=== PATIENT | female | born 1945 | race Caucasian/White ===

== ENCOUNTER 2017-02-19 10:44 | Day surgery (SDC) | payer MEDICARE ==
[~2017-02-19] VITALS: Ht 157.5 cm; Wt 90.7 kg
[~2017-02-19 10:44] MED LIST: ALPR0.254 PO; AMLO5TAB2 PO; CITA40TA11 PO; FEXO-45 PO; HYDR-3730 PO; LEVO75TA6 PO; LISI-552 PO; SIMV40TA4 PO; SUCR1TAB PO
[2017-02-19 11:31] LABS: CLARITY,URINE SLIGHTLY CLOUDY; COLOR,URINE YELLOW; GLUCOSE, URINE (UA) NEGATIVE (NEGATIVE); KETONES,URINE 2+ (NEGATIVE); LEUKOCYTE ESTERASE ,URINE 3+ (NEGATIVE); NITRITE,URINE NEGATIVE (NEGATIVE); PH,URINE 5 (5-9); PROTEIN,URINE 2+ (NEGATIVE); UROBILINOGEN,URINE 1 MG/DL (NORMAL)
[2017-02-19 11:33] LABS: BASOPHILS % (AUTO) 0 % (0-10); EOSINOPHILS % (AUTO) 0 % (0-10); HEMATOCRIT 46 % (35-52); HEMOGLOBIN 15.5 G/DL (11.5-16.0); LYMPHOCYTES # (AUTO) 1.3 X 10^3 (1.0-4.0); LYMPHOCYTES % (AUTO) 25 % (12-44); MEAN CORPUSCULAR HEMOGLOBIN 31 PG (25-34); MEAN CORPUSCULAR HGB CONC 34 G/DL (32-36); MEAN CORPUSCULAR VOLUME 94 FL (80-99); MEAN PLATELET VOLUME 9.2 FL (7.4-10.4); MONOCYTES # (AUTO) 0.5 X 10^3 (0.0-1.0); MONOCYTES % (AUTO) 9 % (0-12); NEUTROPHILS # (AUTO) 3.5 X 10^3 (1.8-7.8); NEUTROPHILS % (AUTO) 66 % (42-75); PLATELET COUNT 263 10^3/uL (130-400); RED BLOOD COUNT 4.95 10^6/uL (4.35-5.85); RED CELL DISTRIBUTION WIDTH 13.1 % (10.0-14.5); WHITE BLOOD COUNT 5.4 10^3/uL (4.3-11.0)
[2017-02-19 11:43] LABS: BACTERIA,URINE MODERATE /HPF; BILIRUBIN,URINE 1+ (NEGATIVE); GRANULAR CASTS,URINE 0-2 /LPF; RBC,URINE RARE /HPF
--- NOTE | 2017-02-19 11:48 | ED GI ---
General Chief Complaint: Abdominal/GI Problems Stated Complaint: FEELS,N/D Nursing Triage Note: pt presents ot er with complaint of nausea, diarrhea, weakness, and clammy. states symptoms started x2 weeks. Sepsis Screen: No Definite Risk Source of Information: Patient, Family Exam Limitations: Intoxication (MITRA GREENE MD) History of Present Illness Time Seen By Provider: 11:35 Initial Comments I the patient is a 71-year-old white female who is the aunt of Dr. Puentes. She did not go to the [employer] dinner at Dr. Puentes's house because she felt ill. When Dr. Puentes inquired further she found that the patient had been having diarrhea for a month. And that she had also been losing weight. The patient states that she has lost 90+ pounds over the past 4-1/2 years by dieting. She lost about 10 pounds over the past month because she did not feel like eating. She denied blood in the stools nausea or vomiting. Timing/Duration: Other (MITRA GREENE MD) Allergies and Home Medications Allergies Coded Allergies: No Known Drug Allergies (Unverified , 02/19/17) Home Medications Alprazolam 0.25 Mg Tablet, 0.25 MG PO TID PRN for ANXIETY, (Reported) Amlodipine Besylate 5 Mg Tablet, 5 MG PO DAILY, (Reported) Citalopram Hydrobromide 40 Mg Tablet, 40 MG PO HS, (Reported) Fexofenadine HCl 60 Mg Tablet, 60 MG PO BID PRN for CONGESTION, (Reported) Levothyroxine Sodium 75 Mcg Tablet, 75 MCG PO DAILY, (Reported) Lisinopril 20 Mg Tablet, 20 MG PO DAILY, (Reported) Simvastatin 40 Mg Tablet, 40 MG PO DAILY, (Reported) Sucralfate 1 Gm Tablet, 1 GM PO QID PRN for HEARTBURN, (Reported) Review of Systems Constitutional: see HPI EENTM: No Symptoms Reported Respiratory: No Symptoms Reported Cardiovascular: No Symptoms Reported Gastrointestinal: Diarrhea, Nausea, Poor Appetite Genitourinary: No Symptoms Reported Musculoskeletal: no symptoms reported Skin: no symptoms reported Psychiatric/Neurological: No Symptoms Reported Endocrine: No Symptoms Reported Hematologic/Lymphatic: No Symptoms Reported (MITRA GREENE MD) Past Ksiroqe-Qmyxho-Wmamac Hx Patient Social History Alcohol Use: Denies Use Recreational Drug Use: No Smoking Status: Never a Smoker Recent Foreign Travel: No Contact w/Someone Who Travel: No Recent Infectious Disease Expo: No Recent Hopitalizations: No Physical Abuse: No Sexual Abuse: No (MITRA GREENE MD) Immunizations Up To Date Tetanus Booster (TDap): Less than 5yrs Date of Pneumonia Vaccine: Dec 04, 2013 Date of Influenza Vaccine: Dec 04, 2015 (MITRA GREENE MD) Seasonal Allergies Seasonal Allergies: Yes (MITRA GREENE MD) Surgeries History of Surgeries: Yes (D&C) Surgeries: Orthopedic (MITRA GREENE MD) Respiratory History of Respiratory Disorde: No Currently Using CPAP: No Currently Using BIPAP: No (MITRA GREENE MD) Cardiovascular History of Cardiac Disorders: Yes Cardiac Disorders: High Cholesterol, Hypertension (MITRA GREENE MD) Neurological History of Neurological Disord: No (MITRA GREENE MD) Reproductive System Hx Reproductive Disorders: No Sexually Transmitted Disease: No HIV/AIDS: No Female Reproductive Disorders: Denies (MITRA GREENE MD) Genitourinary History of Genitourinary Disor: No (MITRA GREENE MD) Gastrointestinal History of Gastrointestinal Di: Yes Gastrointestinal Disorders: Gastroesophageal Reflux, Hiatal Hernia (MITRA GREENE MD) Musculoskeletal History of Musculoskeletal Dis: Yes Musculoskeletal Disorders: Arthritis (MITRA GREENE MD) Endocrine History of Endocrine Disorders: Yes Endocrine Disorders: Hypothyroidsim (MITRA GREENE MD) HEENT Loss of Vision: Bilateral Hearing Impairment: Denies (MITRA GREENE MD) Cancer History of Cancer: No (MITRA GREENE MD) Psychosocial History of Psychiatric Problem: Yes Behavioral Health Disorders: Anxiety, Depression Suicide Risk Score: 0 (MITRA GREENE MD) Integumentary History of Skin or Integumenta: No (MITRA GREENE MD) Blood Transfusions History of Blood Disorders: No Adverse Reaction to a Blood Tr: No (N/A) (MITRA GREENE MD) Physical Exam Vital Signs VS - Last 72 Hours, by Label 02/19/17 11:11 Temp 97.9 Pulse 109 Resp 20 B/P (MAP) 137/70 (92) Pulse Ox 98 O2 Delivery Room Air (SPENSER ALBERT APRN) Vital Signs Capillary Refill : Less Than 3 Seconds (MITRA GREENE MD) General Appearance: WD/WN, no apparent distress HEENT: normal ENT inspection Neck: full range of motion Respiratory: chest non-tender, lungs clear, normal breath sounds, no respiratory distress, no accessory muscle use Cardiovascular: normal peripheral pulses, regular rate, rhythm, no edema, no gallop, no JVD, no murmur Gastrointestinal: non tender, soft, no organomegaly, no pulsatile mass, abnormal bowel sounds (hypoactive) Extremities: normal range of motion, non-tender, normal inspection, no pedal edema, no calf tenderness, normal capillary refill, pelvis stable Back: normal inspection Neurologic/Psychiatric: bull float finisher II-XII nml as tested, no motor/sensory deficits, alert, normal mood/affect, oriented x 3 (MITRA GREENE MD) Progress/Results/Core Measures Results/Orders Lab Results Laboratory Tests Test 02/19/17 11:07 02/19/17 11:23 Range/Units Urine Color YELLOW Urine Clarity SLIGHTLY CLOUDY Urine pH 5 5-9 Urine Specific [place] 1.025 H 1.016-1.022 Urine Protein 2+ H NEGATIVE Urine Glucose (UA) NEGATIVE NEGATIVE Urine Ketones 2+ H NEGATIVE Urine Nitrite NEGATIVE NEGATIVE Urine Bilirubin 1+ H NEGATIVE Urine Urobilinogen 1 NORMAL MG/DL Urine Leukocyte Esterase 3+ H NEGATIVE Urine RBC (Auto) 2+ H NEGATIVE Urine RBC RARE /HPF Urine WBC 10-25 H /HPF Urine Squamous Epithelial Cells 10-25 H /HPF Urine Crystals NONE /LPF Urine Bacteria MODERATE H /HPF Urine Casts PRESENT /LPF Urine Granular Casts 0-2 H /LPF Urine Mucus NEGATIVE /LPF Urine Culture Indicated YES White Blood Count 5.4 4.3-11.0 10^3/uL Red Blood Count 4.95 4.35-5.85 10^6/uL Hemoglobin 15.5 11.5-16.0 G/DL Hematocrit 46 35-52 % Mean Corpuscular Volume 94 80-99 FL Mean Corpuscular Hemoglobin 31 25-34 PG Mean Corpuscular Hemoglobin Concent 34 32-36 G/DL Red Cell Distribution Width 13.1 10.0-14.5 % Platelet Count 263 130-400 10^3/uL Mean Platelet Volume 9.2 7.4-10.4 FL Neutrophils (%) (Auto) 66 42-75 % Lymphocytes (%) (Auto) 25 12-44 % Monocytes (%) (Auto) 9 0-12 % Eosinophils (%) (Auto) 0 0-10 % Basophils (%) (Auto) 0 0-10 % Neutrophils # (Auto) 3.5 1.8-7.8 X 10^3 Lymphocytes # (Auto) 1.3 1.0-4.0 X 10^3 Monocytes # (Auto) 0.5 0.0-1.0 X 10^3 Eosinophils # (Auto) 0.0 0.0-0.3 10^3/uL Basophils # (Auto) 0.0 0.0-0.1 10^3/uL Sodium Level 138 135-145 MMOL/L Potassium Level 3.8 3.6-5.0 MMOL/L Chloride Level 102 98-107 MMOL/L Carbon Dioxide Level 24 21-32 MMOL/L Anion Gap 12 5-14 MMOL/L Blood Urea Nitrogen 9 7-18 MG/DL Creatinine 0.78 0.60-1.30 MG/DL Estimat Glomerular Filtration Rate > 60 BUN/Creatinine Ratio 12 Glucose Level 111 H 70-105 MG/DL Calcium Level 9.2 8.5-10.1 MG/DL Total Bilirubin 0.6 0.1-1.0 MG/DL Aspartate Amino Transf (AST/SGOT) 17 5-34 U/L Alanine Aminotransferase (ALT/SGPT) 17 0-55 U/L Alkaline Phosphatase 51 40-136 U/L Total Protein 6.8 6.4-8.2 GM/DL Albumin 4.0 3.2-4.5 GM/DL Lipase 13 8-78 U/L (SPENSER ALBERT APRN) My Orders Orders - SPENSER ALBERT APRN Ct Chest/Abdomen/Pelvis W (02/19/17 12:05) Ns Iv 1000 Ml (Sodium Chloride 0.9%) (02/19/17 12:15) Ceftriaxone Injection (Rocephin Injectio (02/19/17 12:15) Ondansetron Injection (Zofran Injectio (02/19/17 12:15) Iohexol Injection (Omnipaque 350 Mg/Ml 1 (02/19/17 12:30) Ns (Ivpb) (Sodium Chloride 0.9% Ivpb Bag (02/19/17 12:30) Lipase (02/19/17 13:31) (SPENSER ABLERT APRN) Medications Given in ED Current Medications Medications Dose Ordered Sig/Ron Route Start Time Stop Time Status Last Admin Dose Admin Ceftriaxone Sodium 1000 mg/ Sodium Chloride 50 ml @ 100 mls/hr ONCE ONCE IV 02/19/17 12:15 02/19/17 12:44 DC 02/19/17 12:24 100 MLS/HR Iohexol 100 ml ONCE ONCE IV 02/19/17 12:30 02/19/17 12:31 DC 02/19/17 13:02 100 ML Ondansetron HCl 4 mg ONCE ONCE IVP 02/19/17 12:15 02/19/17 12:17 DC 02/19/17 12:25 4 MG Sodium Chloride 100 ml ONCE ONCE IV 02/19/17 12:30 02/19/17 12:31 DC 02/19/17 13:02 80 ML (SPENSER ALBERT APRN) Vital Signs/I&O Vital Sign - Last 12Hours 02/19/17 11:11 Temp 97.9 Pulse 109 Resp 20 B/P (MAP) 137/70 (92) Pulse Ox 98 O2 Delivery Room Air (SPENSER ALBERT APRN) Blood Pressure Mean: 92 Diagnostic Imaging Diagonstic Imaging: CT Comments NAME: LUNA COLLAZO [facility] REC#: [id number] PT STATUS: REG ER : 1945 PHYSICIAN: SPENSER ALBERT APRN ADMIT DATE: 02/19/17/ER Draft Date of Exam:02/19/17 CT CHEST/ABDOMEN/PELVIS W PROCEDURE: CT chest, abdomen, and pelvis with contrast. TECHNIQUE: Multiple contiguous axial images were obtained through the chest, abdomen, and pelvis after the administration of intravenous contrast. INDICATION: Nausea and diarrhea. FINDINGS: CT CHEST: The lungs demonstrate a 4 mm nodule along the minor fissure, of questionable significance. There is otherwise no significant consolidation, mass or suspicious nodule. The heart size is normal. No pericardial or pleural effusion. The thoracic aorta is normal in caliber. No mediastinal mass or lymphadenopathy. No hilar or axillary lymphadenopathy is seen. The osseous structures appear grossly unremarkable. CT abdomen and pelvis: The liver is fairly homogeneous with no focal lesion. There are large calcified gallstones seen with no CT evidence of cholecystitis. The largest stone is 1.8 CM in size. There are 3 stones seen. The spleen is not enlarged. The adrenal glands and the pancreas appear unremarkable. The kidneys have symmetric enhancement and contrast excretion. There is no hydronephrosis. The urinary bladder appear unremarkable. The uterus and adnexa appear unremarkable. There is no bowel obstruction. No significant free fluid or fluid collection in the abdomen or pelvis is seen. The uterus and adnexa appear grossly unremarkable. There is a tiny fat-containing umbilical hernia. The osseous structures demonstrate mild sclerotic curvature and advanced degenerative changes. IMPRESSION: CT CHEST: Indeterminate 4 mm pulmonary nodule along the minor fissure, of questionable significance. CT ABDOMEN AND PELVIS: 1. Cholelithiasis. 2. Tiny fat-containing umbilical hernia. Dictated on workstation # [id number] Dict: 02/19/17 1320 Trans: 02/19/17 1347 [facility] [id number] Interpreted by: ASHWIN WALL MD Electronically signed by: (SPENSER ALBERT APRN) Departure Communication (Admissions) Progress Notes Dr. Coley has met with the patient and discussed the likely benefit of cholecystectomy given her cholelithiasis. After much discussion with family patient finally agrees to have this done today. She is a very anxious person so part of her symptomatology is likely from irritable bowel syndrome. (SPENSER ALBERT APRN) Impression Impression: Primary Impression: Symptomatic cholelithiasis Additional Impressions: Anxiety Irritable bowel syndrome Disposition: 01 HOME, SELF-CARE Condition: Stable Departure-Patient Inst. Referrals: MIAH EATON MD (PCP/Family) Primary Care Physician MITRA GREENE MD Feb 19, 2017 11:48 SPENSER ALBERT APRN Feb 19, 2017 13:50
[2017-02-19 12:01] LABS: ALANINE AMINOTRANSFERASE 17 U/L (0-55); ALKALINE PHOSPHATASE 51 U/L (40-136); BILIRUBIN,TOTAL 0.6 MG/DL (0.1-1.0); BUN/CREATININE RATIO 12; CALCIUM 9.2 MG/DL (8.5-10.1); CARBON DIOXIDE 24 MMOL/L (21-32); CHLORIDE 102 MMOL/L (98-107); CREATININE SERUM 0.78 MG/DL (0.60-1.30); GFR ESTIMATED > 60; GLUCOSE 111 MG/DL (70-105); POTASSIUM 3.8 MMOL/L (3.6-5.0); SODIUM 138 MMOL/L (135-145); TOTAL PROTEIN 6.8 GM/DL (6.4-8.2)
[2017-02-19] MEDS ORDERED: cefTRIAXone INJECTION 1,000 MG in NS (IVPB) 50 ML IV ONE (12:15)
[2017-02-19] MEDS ORDERED: ONDANSETRON 4 MG/2 ML (SDV) Z0FRAN IVP ONE (12:15)
[2017-02-19] MEDS ORDERED: NS IV 1000 ML 1,000 ML IV SCH (12:15)
[2017-02-19] MEDS ORDERED: IOHEXOL 350 MG/ML 100 ML (OMNIPAQUE 350) VIAL IV ONE (12:30)
[2017-02-19] MEDS ORDERED: NS 100 ML (IVPB) BAG IV ONE (12:30)
--- NOTE | 2017-02-19 13:47 | Diagnostic Imaging Report ---
PROCEDURE: CT chest, abdomen, and pelvis with contrast. TECHNIQUE: Multiple contiguous axial images were obtained through the chest, abdomen, and pelvis after the administration of intravenous contrast. INDICATION: Nausea and diarrhea. FINDINGS: CT CHEST: The lungs demonstrate a 4 mm nodule along the minor fissure, of questionable significance. There is otherwise no significant consolidation, mass or suspicious nodule. The heart size is normal. No pericardial or pleural effusion. The thoracic aorta is normal in caliber. No mediastinal mass or lymphadenopathy. No hilar or axillary lymphadenopathy is seen. The osseous structures appear grossly unremarkable. CT abdomen and pelvis: The liver is fairly homogeneous with no focal lesion. There are large calcified gallstones seen with no CT evidence of cholecystitis. The largest stone is 1.8 CM in size. There are 3 stones seen. The spleen is not enlarged. The adrenal glands and the pancreas appear unremarkable. The kidneys have symmetric enhancement and contrast excretion. There is no hydronephrosis. The urinary bladder appear unremarkable. The uterus and adnexa appear unremarkable. There is no bowel obstruction. No significant free fluid or fluid collection in the abdomen or pelvis is seen. The uterus and adnexa appear grossly unremarkable. There is a tiny fat-containing umbilical hernia. The osseous structures demonstrate mild sclerotic curvature and advanced degenerative changes. IMPRESSION: CT CHEST: Indeterminate 4 mm pulmonary nodule along the minor fissure, of questionable significance. CT ABDOMEN AND PELVIS: 1. Cholelithiasis. 2. Tiny fat-containing umbilical hernia. Dictated by: Dictated on workstation # [id number]
[2017-02-19] MEDS ORDERED: LORazepam INJ 2 MG/ML (ATIVAN) VIAL IVP ONE (14:30)
[2017-02-19 16:00] VITALS: BP 131/61
[2017-02-19] MEDS ORDERED: LACTATED RINGERS 1,000 ML IV PRN (16:05)
[2017-02-19] MEDS ORDERED: morphine INJ 10 MG/ML 1ML (SYR OR VIAL) ONE (16:10)
[2017-02-19] MEDS ORDERED: BUP/EPI 0.5% 1:200,000 (MARCAINE) 10ML VIAL IJ ONE (17:17)
--- NOTE | 2017-02-19 17:17 | History & Physical-Surgical ---
History of Present Illness History of Present Illness Reason for visit/HPI I was asked to see this pt regarding Cholelithiasis/cholecystitis. HPI: pt presented to ED with complaint of nausea, diarrhea, weakness, and clammy. Pt states symptoms started at least 2 weeks ago; according to her this has been going on "a long time". The patient is a 71-year-old white female who is the aunt of Dr. Puentes. She did not go to the [employer] dinner at Dr. Puentes's house because she felt ill. When Dr. Puentes inquired further she found that the patient had been having diarrhea for a month. And that she had also been losing weight. The patient states that she has lost 90+ pounds over the past 4-1/2 years by dieting. She lost about 10 pounds over the past month because she did not feel like eating. She denied blood in the stools or melena. She thinks she gets nausea and abdominal pain with all foods; not really associated with one more than the other. thinks sometimes fatty foods are the worst, but doesn't happen all the time with them. She had an EGD appx 4 1/2 years ago for acid; but feels like these symptoms are different. She rates the pain as 5-6 out of 10; pt really doesn't want to answer questions because she is very afraid of surgery. Date of Admission 02/19/17 Date Seen by Provider: Feb 19, 2017 Time Seen by Provider: 13:59 I consulted on this patient on Attending Physician Jose Manuel Coley DO Admitting Physician Chepe Orozco MD Consult Allergies and Home Medications Allergies Coded Allergies: No Known Drug Allergies (Unverified , 02/19/17) Home Medications Alprazolam 0.25 Mg Tablet, 0.25 MG PO TID PRN for ANXIETY, (Reported) Amlodipine Besylate 5 Mg Tablet, 5 MG PO DAILY, (Reported) Citalopram Hydrobromide 40 Mg Tablet, 40 MG PO HS, (Reported) Fexofenadine HCl 60 Mg Tablet, 60 MG PO BID PRN for CONGESTION, (Reported) Levothyroxine Sodium 75 Mcg Tablet, 75 MCG PO DAILY, (Reported) Lisinopril 20 Mg Tablet, 20 MG PO DAILY, (Reported) Simvastatin 40 Mg Tablet, 40 MG PO DAILY, (Reported) Sucralfate 1 Gm Tablet, 1 GM PO QID PRN for HEARTBURN, (Reported) Past Asivauc-Aiszmc-Mavovg Hx Patient Social History Alcohol Use: Denies Use Recreational Drug Use: No Smoking Status: Never a Smoker Recent Foreign Travel: No Contact w/Someone Who Travel: No Recent Infectious Disease Expo: No Recent Hopitalizations: No Physical Abuse Screen: No Sexual Abuse: No Immunizations Up To Date Tetanus Booster (TDap): Less than 5yrs PED Vaccines UTD: No Date of Pneumonia Vaccine: Dec 04, 2013 Date of Influenza Vaccine: Dec 04, 2015 Seasonal Allergies Seasonal Allergies: Yes Surgeries History of Surgeries: Yes (D&C) Surgeries: Orthopedic Respiratory History of Respiratory Disorde: No Cardiovascular History of Cardiac Disorders: Yes Cardiac Disorders: High Cholesterol, Hypertension Neurological History of Neurological Disord: No Reproductive System Hx Reproductive Disorders: No Sexually Transmitted Disease: No HIV/AIDS: No Female Reproductive Disorders: Denies Genitourinary History of Genitourinary Disor: No Genitourinary Disorders: Kidney Infection, UTI-Chronic Gastrointestinal History of Gastrointestinal Di: Yes Gastrointestinal Disorders: Gastroesophageal Reflux, Hiatal Hernia, Irritable Bowel Musculoskeletal History of Musculoskeletal Dis: Yes Musculoskeletal Disorders: Arthritis Endocrine History of Endocrine Disorders: Yes Endocrine Disorders: Hypothyroidsim HEENT History of HEENT Disorders: No Loss of Vision: Bilateral Hearing Impairment: Denies Cancer History of Cancer: No Psychosocial History of Psychiatric Problem: Yes Behavioral Health Disorders: Anxiety, Depression Integumentary History of Skin or Integumenta: No Blood Transfusions History of Blood Disorders: No Adverse Reaction to a Blood Tr: No (N/A) Family Medical History Significant Family History: Cancer (uncle and aunt, 70's), CAD Under 55 Years Old (father had RI at 42), Diabetes (mother and father) Family Medial History: Arthritis Cardiovascular disease Cataracts Colon cancer Diabetes mellitus Hypertension Myocardial infarction Parkinson's disease Psychosocial problem Respiratory disorder Thyroid disease Visual disorder Constitutional: chills, diaphoresis, malaise, weakness, weight loss EENTM: No blurred vision, No mouth swelling, No epistaxis, No throat swelling Respiratory: No cough, No dyspnea on exertion, No hemoptysis Cardiovascular: No chest pain, No edema, No palpitations Gastrointestinal: RUQ, see HPI, constipation Genitourinary: No dysuria, No hematuria Musculoskeletal: joint pain, joint swelling, muscle stiffness Skin: No change in color, No change in hair/nails Psychiatric/Neurological: Anxiety, Denies Seizure Other pt denies any abnormal bruising or bleeding, no chronic infections. Denies heat or cold intolerance Physical Exam Vital Signs Vital Sign - Last 12Hours 02/19/17 11:11 Temp 97.9 Pulse 109 Resp 20 B/P (MAP) 137/70 (92) Pulse Ox 98 O2 Delivery Room Air Capillary Refill : Less Than 3 Seconds General Appearance: Anxious, Mild Distress, Obese Eyes: Bilateral Eye PERRL, Bilateral Eye EOMI HEENT: Pharynx Normal, No Pale Conjunctivae (L), No Pale Conjunctivae (R), No Scleral Icterus (L), No Scleral Icterus (R) Neck: Full Range of Motion, Non Tender, Supple Respiratory: Chest Non Tender, Lungs Clear, Normal Breath Sounds, No Accessory Muscle Use, No Respiratory Distress Cardiovascular: Regular Rate, Rhythm, No Edema, No Murmur Gastrointestinal: Normal Bowel Sounds, No Organomegaly, Soft, Tenderness (RUQ mostly) Rectal: Deferred Back: No CVA Tenderness, No Vertebral Tenderness Extremity: Normal Capillary Refill, Normal Inspection, Normal Range of Motion, Non Tender, No Calf Tenderness Neurologic/Psychiatric: Alert, Oriented x3, No Motor/Sensory Deficits, maintenance technician II- XII Norm as Tested Skin: Normal Color, Warm/Dry Lymphatic: No Adenopathy (neck, axilla or groin) Data Review Labs Laboratory Tests 02/19/17 11:07: Urine Color YELLOW, Urine Clarity SLIGHTLY CLOUDY, Urine pH 5, Urine Specific [place] 1.025H, Urine Protein 2+H, Urine Glucose (UA) NEGATIVE, Urine Ketones 2+ H, Urine Nitrite NEGATIVE, Urine Bilirubin 1+H, Urine Urobilinogen 1, Urine Leukocyte Esterase 3+H, Urine RBC (Auto) 2+H, Urine RBC RARE, Urine WBC 10-25H, Urine Squamous Epithelial Cells 10-25H, Urine Crystals NONE, Urine Bacteria MODERATEH, Urine Casts PRESENT, Urine Granular Casts 0-2H, Urine Mucus NEGATIVE , Urine Culture Indicated YES 02/19/17 11:23: White Blood Count 5.4, Red Blood Count 4.95, Hemoglobin 15.5, Hematocrit 46, Mean Corpuscular Volume 94, Mean Corpuscular Hemoglobin 31, Mean Corpuscular Hemoglobin Concent 34, Red Cell Distribution Width 13.1, Platelet Count 263, Mean Platelet Volume 9.2, Neutrophils (%) (Auto) 66, Lymphocytes (%) (Auto) 25, Monocytes (%) (Auto) 9, Eosinophils (%) (Auto) 0, Basophils (%) (Auto) 0, Neutrophils # (Auto) 3.5, Lymphocytes # (Auto) 1.3, Monocytes # (Auto) 0.5, Eosinophils # (Auto) 0.0, Basophils # (Auto) 0.0, Sodium Level 138, Potassium Level 3.8, Chloride Level 102, Carbon Dioxide Level 24, Anion Gap 12, Blood Urea Nitrogen 9, Creatinine 0.78, Estimat Glomerular Filtration Rate > 60, BUN/ Creatinine Ratio 12, Glucose Level 111H, Calcium Level 9.2, Total Bilirubin 0.6 , Aspartate Amino Transf (AST/SGOT) 17, Alanine Aminotransferase (ALT/SGPT) 17, Alkaline Phosphatase 51, Total Protein 6.8, Albumin 4.0, Lipase 13 Assessment/Plan Assessment/Plan Assessment/Plan Acute on Chronic Cholelithiasis/Cholecystitis Obesity Anxiety Plan is NPO, IV fluids, pain control and anti-emetics; will go to the OR for Laparoscopic Cholecystectomy, possible cholangiogram, possible open. Pt has had pain and problems for quite a while now and even though the CT does not show inflammation there still could be some. I did talk to pt regarding the fact that symptoms could also be due to Gastritis (acid or viral). She may need an EGD in the future; unless all her symptoms go away after surgery. Discussed risks and complications; not limited to pain, bleeding, infection, scar, damage to bowel or bile duct and even no change in her symptoms. All questions answered to her and her husbands satisfaction. She is very afraid of surgery, but thinks if she doesn't do it now...she'll never do it and doesn't want it to get so bad that she gets really sick with ruptured gallbladder. I think this is a reasonable course of action. She will need a dose of ABX 1/2 hour prior to sugery. JOSE MANUEL COLEY DO Feb 19, 2017 17:17
[2017-02-19] MEDS ORDERED: INFLUENZA TRIvalent 2017-2018 0.5 ML/45 MCG SYR IM ONE (17:45)
[2017-02-19] MEDS ORDERED: ceFAZolin INJECTION 3,000 MG in NS (IVPB) 50 ML IV NR (17:45)
[2017-02-19] MEDS ORDERED: LIDOCAINE PF 2% 5 ML (XYLOCAINE) VIAL ONE (18:37)
[2017-02-19] MEDS ORDERED: MIDAZOLAM 2 MG/2 ML (VERSED) VIAL ONE (18:37)
[2017-02-19] MEDS ORDERED: fentaNYL INJECTION 100 MCG/2 ML AMP ONE (18:37)
[2017-02-19] MEDS ORDERED: proPOfol 200 MG/20 ML (DIPRIVAN) VIAL IV ONE (18:37)
[2017-02-19] MEDS ORDERED: ROCURONIUM 50 MG/5 ML (ZEMURON) VIAL IV ONE (18:37)
[2017-02-19] MEDS ORDERED: ONDANSETRON 4 MG/2 ML (SDV) Z0FRAN ONE (18:37)
[2017-02-19] MEDS ORDERED: SEVOFLURANE (ULTANE) 15 ML INHAL SOLN ONE ×4 (18:38→19:33)
[2017-02-19] MEDS ORDERED: DEXAMETHASONE 10 MG/ML (DECADRON) 1 ML VIAL ONE (18:38)
[2017-02-19] MEDS ORDERED: NEOSTIGMINE (BLOXIVERZ ) 1 MG/1ML 10 ML VIAL ONE (19:33)
[2017-02-19] MEDS ORDERED: GLYCOPYRROLATE 0.2 MG/ML (ROBINUL) 2 ML VIAL ONE (19:33)
--- NOTE | 2017-02-19 19:34 | Progress Note-Post Operative ---
Post-Operative Progess Note Surgeon (s)/Loan Counselor (s) Surgeon ALEXSANDER BARRERA DO Loan Counselor: [place] Pre-Operative Diagnosis Acute on Chronic Radha/radha Post-Operative Diagnosis Same Procedure & Operative Findings Date of Procedure 02/19/17 Procedure Performed/Findings Lap radha with IOC Anesthesia Type GET Estimated Blood Loss Estimated blood loss (mL): scant Specimens/Packing Specimens Removed GB and contents ALEXSANDER BARRERA DO Feb 19, 2017 19:34
[2017-02-19] MEDS ORDERED: ACHD5005 PO (19:38)
--- NOTE | 2017-02-19 19:40 | Discharge Inst-Surgical ---
Discharge Inst-Surgical Depart Medication/Instructions New, Converted or Re-Newed RX: RX Given to Pt/Family Patient Instructions Follow up Appt: Make appointment for 1 week; [phone]. Instructions: No lifting greater than 10 pounds. No strenuous activity. May shower in 24 hours, no tub bath or soaking. Use incentive spirometer at home as directed. No Smoking Skin/Wound Care: May remove bandages. You need to leave the Dermabond on over incision it will fall off on its own. Symptoms to Report: Appetite Changes, Extremity Discoloration, Numbness/Tingling, Swelling Increased , Bleeding Excessive, Eyesight Changes, Pain Increased, Urine Color Change, Constipation(Persistent), Fever over 101 degree F, Pain/Pressure in chest, Urinating Difficulty, Cough Up/Vomit Blood, Heart Beat Irreg/Pounding, Pain/ Pressure in jaw, Vaginal Bleeding Increase, Cramps in feet or legs, Lightheadedness, Pain/Pressure in shoulder, Diarrhea(Persistent), Memory Changes Suddenly, Questions/Concerns, Weight gain consecutive days, Dizziness/ Fainting, Nausea/Vomiting, Shortness of Breath, Weight gain over 2 pounds. If eyes or skin turn yellow notify physician. If questions or concerns contact your physician Or seek help at emergency department. Activity Activity as Tolerated: Yes Activity Instructions: Avoid Pulling & Pushing, Avoid Stress to Incision Driving Instructions: No Driving/Refer to Dr. Cook Discharge Diet: Avoid Fatty Foods, Low Fat/Low Cholesterol Diet After 24 Hours: Clear Liquid if Nauseous If Any Problems/Questions/Issu: Contact Your Physician, Go to Emergency Room Skin/Wound Care Infection Signs and Symptoms: Increased Redness, Foul Odor of Wound, Increased Drainage, Skin Itchy or Has a Rash, Increased Swelling, Temperature Above 101 F Wound Care Comment: Heating pad to shoulder or neck for pain Bathing Instructions: Shower Stitches/Lolis/Dermabond Dis: Dermabond Ice Pack: Ice On and Off Site ALEXSANDER BARRERA DO Feb 19, 2017 19:40
[2017-02-19] MEDS ORDERED: CATHETER FLUSH 10 ML SYR IV PRN (19:45)
[2017-02-19] MEDS ORDERED: HYDROcodone/APAP 5 MG/325 MG (LORTAB) TAB PO PRN (19:45)
[2017-02-19] MEDS ORDERED: HYDROmorphone (DILAUDID) 2 MG/ML VIAL IVP PRN (20:00)
[2017-02-19] MEDS ORDERED: PROMETHAZINE INJ 25 MG/ML (PHENERGAN) AMP IVP PRN (20:00)
[2017-02-19] MEDS ORDERED: ONDANSETRON 4 MG/2 ML (SDV) Z0FRAN IVP PRN (20:00)
[2017-02-19] MEDS: morphine INJ 10 MG/ML 1ML (SYR OR VIAL) IVP PRN ×2 (20:10→20:15)
[2017-02-19 20:50] VITALS: BP 133/67
[2017-02-20] VITALS: BP 136/65
--- NOTE | 2017-02-20 00:44 | OPERATIVE REPORT ---
DATE OF SERVICE: 02/19/2017 PREOPERATIVE DIAGNOSIS: Acute on chronic cholecystitis with cholelithiasis. POSTOPERATIVE DIAGNOSES: Acute on chronic cholecystitis with cholelithiasis. PROCEDURE: Laparoscopic cholecystectomy, intraoperative cholangiogram. SURGEON: Jose Manuel Coley DO. HALL MANAGER: Art Felipe DO. ANESTHESIA: General endotracheal tube. SPECIMEN: Gallbladder and contents. BLOOD LOSS: Scant. FLUIDS: Per anesthesia. POSTOPERATIVE CONDITION: Stable. INDICATION FOR PROCEDURE: The patient is a 71-year-old female, who has been having some abdominal pain, weight loss, nausea, vomiting and had a CAT scan, which showed large gallstones. FINDINGS: The patient had little erythema at the tip of her gallbladder, it was also distended and possibly a little bit of edema around it. No stones in the duct. PROCEDURE NOTE: After informed consent was obtained, the patient was brought to the operating room, placed on the operating table in supine position. She was sterilely prepped and draped in normal fashion. Local lidocaine was used to infiltrate the skin above the umbilicus, made an incision with #11 blade, carried down through skin into subcutaneous tissue, then deepened down through subcutaneous tissue with Bovie electrocautery down to the fascia. Fascia was incised with Bovie electrocautery. Bluntly entered the abdomen, swept the finger around, placed 0 Vicryl [id number] suture and then placed an 11 mm trocar port under direct visualization, created pneumoperitoneum and then placed 3 more ports in a normal fashion using local lidocaine, 11 blade for stab incision and Versed system, all done under direct visualization, 1 subxiphoid and 2 in the right upper quadrant. The patient then placed in reverse Trendelenburg and rotated left, able to visualize the gallbladder. Tip of it looked a little bit erythematous and it was a little bit distended. There is also a little bit of edema around it. Able to grasp this, taken in superior direction and then rasped down the Yevgeniy's pouch and pulled from the inferolateral direction and started dissecting out cystic duct and cystic artery. I was able to get around the cystic duct and the cystic artery and placed 1 clip distally on the cystic duct and 1 distally and 2 proximally on the cystic artery. Cut the cystic duct assisted through with Metzenbaum scissors. Placed a cholangiogram catheter and shot a cholangiogram. Good spillage of dye down the cystic duct into the common bile duct and then down into the small intestine as well as up the common hepatic and right and left hepatics. Removed the cholangiogram catheter, placed 2 clips proximally on the cystic duct and cut the cystic duct and cystic artery with Metzenbaum scissors and then removed the gallbladder from bed of liver with L-hook cautery. Once it was completely removed, placed a bag in the abdomen, placed the gallbladder in the bag and then removed this through the supraumbilical incision. Placed the port back in the abdomen, copiously irrigated with normal saline, suctioned this out looked around, there did not appear to be any bleeding from the bed of liver, no other obvious pathology. Scope was removed. The patient was placed supine and then allowed the pneumoperitoneum to escape as well as suction it out. Closed the supraumbilical incision, closed the fascia with 0 Vicryl suture previously placed. Copiously irrigated all incisions with normal saline and then closed the three small 5 mm incisions with a single interrupted 4-0 undyed Monocryl subcuticular stitch. Closed the supraumbilical incision with 3 interrupted 4-0 undyed Monocryl subcuticular stitches. Area was cleaned and dried and Dermabond placed as well as Band-Aid. The patient was then transferred to recovery room in stable condition. Sponge and needle count correct at the end of the case. Dr. Felipe assisted in the case identified anatomy, holding up gallbladder out of way as well as making incisions and then closing the incisions. Job ID: [id number] DocumentID: [id number] Dictated Date: 02/19/2017 20:10:21 Sample Taker Operator Date: 02/20/2017 00:44:07 Dictated By: JOSE MANUEL COLEY DO
[2017-02-20 03:59] VITALS: BP 121/61
--- NOTE | 2017-02-20 07:31 | Progress Note ---
Subjective Time Seen by Provider: 07:04 Subjective/Events-last exam Pt seen and examined, no complaints; states she didn't sleep much last night. Minimal abdominal pain. No nausea or vomiting Review of Systems General: No Chills, No Night Sweats Pulmonary: No Cough Cardiovascular: No: Chest Pain Objective Exam Vital Signs Date Time Temp Pulse Resp B/P (MAP) Pulse Ox O2 Delivery O2 Flow Rate FiO2 02/20/17 03:59 98.6 86 18 121/61 (81) 96 Room Air 02/20/17 00:00 98.5 74 17 136/65 (88) 95 Room Air 02/19/17 23:13 Room Air 02/19/17 20:50 98.2 82 18 133/67 (89) 96 Room Air 02/19/17 16:56 Room Air 02/19/17 16:00 97.8 84 20 131/61 (84) 98 Room Air 02/19/17 15:36 98.0 100 20 98 Room Air 02/19/17 11:11 97.9 109 20 137/70 (92) 98 Room Air I & O 02/20/17 07:00 Intake Total 1630 ml Balance 1630 ml Capillary Refill : Less Than 3 Seconds General Appearance: No Apparent Distress, WD/WN, Anxious, Obese HEENT: Pharynx Normal, No Pale Conjunctivae (L), No Pale Conjunctivae (R), No Scleral Icterus (L), No Scleral Icterus (R) Respiratory: Lungs Clear, Normal Breath Sounds, No Accessory Muscle Use, No Respiratory Distress Cardiovascular: Regular Rate, Rhythm, No Murmur Peripheral Pulses: 0 Carotid (R), 0 Carotid (L), 0 Femoral (R), 0 Femoral (L), 0 Dorsalis Pedis (R), 0 Left Dors-Pedis (L), 0 Radial Pulses (R), 0 Radial Pulses (L) Gastrointestinal: soft, other (incisions are c/d/i) Results Lab Laboratory Tests 02/19/17 11:07: Urine Color YELLOW, Urine Clarity SLIGHTLY CLOUDY, Urine pH 5, Urine Specific [place] 1.025H, Urine Protein 2+H, Urine Glucose (UA) NEGATIVE, Urine Ketones 2+ H, Urine Nitrite NEGATIVE, Urine Bilirubin 1+H, Urine Urobilinogen 1, Urine Leukocyte Esterase 3+H, Urine RBC (Auto) 2+H, Urine RBC RARE, Urine WBC 10-25H, Urine Squamous Epithelial Cells 10-25H, Urine Crystals NONE, Urine Bacteria MODERATEH, Urine Casts PRESENT, Urine Granular Casts 0-2H, Urine Mucus NEGATIVE , Urine Culture Indicated YES 02/19/17 11:23: White Blood Count 5.4, Red Blood Count 4.95, Hemoglobin 15.5, Hematocrit 46, Mean Corpuscular Volume 94, Mean Corpuscular Hemoglobin 31, Mean Corpuscular Hemoglobin Concent 34, Red Cell Distribution Width 13.1, Platelet Count 263, Mean Platelet Volume 9.2, Neutrophils (%) (Auto) 66, Lymphocytes (%) (Auto) 25, Monocytes (%) (Auto) 9, Eosinophils (%) (Auto) 0, Basophils (%) (Auto) 0, Neutrophils # (Auto) 3.5, Lymphocytes # (Auto) 1.3, Monocytes # (Auto) 0.5, Eosinophils # (Auto) 0.0, Basophils # (Auto) 0.0, Sodium Level 138, Potassium Level 3.8, Chloride Level 102, Carbon Dioxide Level 24, Anion Gap 12, Blood Urea Nitrogen 9, Creatinine 0.78, Estimat Glomerular Filtration Rate > 60, BUN/ Creatinine Ratio 12, Glucose Level 111H, Calcium Level 9.2, Total Bilirubin 0.6 , Aspartate Amino Transf (AST/SGOT) 17, Alanine Aminotransferase (ALT/SGPT) 17, Alkaline Phosphatase 51, Total Protein 6.8, Albumin 4.0, Lipase 13 Assessment/Plan Assessment/Plan Assessment/Plan S/P Lap Huong with IOC Obesity Anxiety Pt looks great, can be discharged home. She had no questions Clinical Quality Measures DVT/VTE Risk/Contraindication: Risk Factor Score Per Nursin RFS Level Per Nursing on Admit: 2=Moderate ALEXSANDER BARRERA DO Feb 20, 2017 07:31
[2017-02-20 08:00] VITALS: BP 146/82
[2017-02-20] MEDS ORDERED: INFLUENZA TRIvalent 2017-2018 0.5 ML/45 MCG SYR IM ONE (08:57)
--- NOTE | 2017-02-20 09:46 | Diagnostic Imaging Report ---
Indication: Intraoperative cholangiogram. Right upper quadrant pain. Comparison: CT chest, abdomen, and pelvis from 02/19/2017 Findings and Impression: Multiple fluoroscopic images were obtained during intraoperative cholangiogram. These demonstrate cannulation of the residual cystic duct with contrast opacifying normal caliber common bile duct and central intrahepatic radicles. Contrast is seen spilling into the second portion of the duodenum. A total of 9 seconds or fluoroscopy was utilized for this procedure performed by Dr. Coley. Please see operative report for complete details. Dictated by: Dictated on workstation # [id number]
== END 2017-02-20 09:10 | disposition home or self-care (01) ==
LOC: EDUNIT# 10:44 → ER 10:46 → SDC 14:45 → 4TH 14:45 → SDC 02-20 09:10
PROVIDERS: ATTEND Surgery
DX: K80.12 Calculus of gallbladder with acute and chronic cholecystitis without obstruction (principal); I10 Essential (primary) hypertension; E78.00 Pure hypercholesterolemia, unspecified; E03.9 Hypothyroidism, unspecified; K21.9 Gastro-esophageal reflux disease without esophagitis; K44.9 Diaphragmatic hernia without obstruction or gangrene; F41.9 Anxiety disorder, unspecified; R82.99 Other abnormal findings in urine; E66.9 Obesity, unspecified; Z68.36 Body mass index [BMI] 36.0-36.9, adult; Z79.899 Other long term (current) drug therapy; Z87.440 Personal history of urinary (tract) infections
CPT/HCPCS: 36415; 71260; 74177; 80053; 81000; 83690; 85025; 87081; 87088; 94664; 96361; 96365; 96375

== ENCOUNTER 2017-03-13 10:11 | Emergency (ER) | payer MEDICARE ==
[~2017-03-13] VITALS: Ht 157.5 cm; Wt 90.7 kg
[~2017-03-13 10:11] MED LIST changes: +ACHD5005 PO
[2017-03-13 10:32] VITALS: BP_SYST 86; BP_SYST 94; BP_SYST 99; BP_DIAS 55; BP_DIAS 66; BP_DIAS 72
[2017-03-13 10:45] LABS: BASOPHILS % (AUTO) 0 % (0-10); EOSINOPHILS # (AUTO) 0.1 10^3/uL (0.0-0.3); EOSINOPHILS % (AUTO) 1 % (0-10); HEMATOCRIT 47 % (35-52); HEMOGLOBIN 16.2 G/DL (11.5-16.0); LYMPHOCYTES # (AUTO) 1.9 X 10^3 (1.0-4.0); LYMPHOCYTES % (AUTO) 25 % (12-44); MEAN CORPUSCULAR HEMOGLOBIN 33 PG (25-34); MEAN CORPUSCULAR HGB CONC 35 G/DL (32-36); MEAN CORPUSCULAR VOLUME 94 FL (80-99); MONOCYTES # (AUTO) 0.8 X 10^3 (0.0-1.0); MONOCYTES % (AUTO) 10 % (0-12); NEUTROPHILS % (AUTO) 64 % (42-75); PLATELET COUNT 314 10^3/uL (130-400); RED BLOOD COUNT 4.93 10^6/uL (4.35-5.85); RED CELL DISTRIBUTION WIDTH 12.6 % (10.0-14.5); WHITE BLOOD COUNT 7.7 10^3/uL (4.3-11.0)
[2017-03-13 11:11] LABS: ALANINE AMINOTRANSFERASE 20 U/L (0-55); ALKALINE PHOSPHATASE 56 U/L (40-136); BILIRUBIN,TOTAL 0.8 MG/DL (0.1-1.0); BUN/CREATININE RATIO 12; CALCIUM 9.5 MG/DL (8.5-10.1); CARBON DIOXIDE 23 MMOL/L (21-32); CHLORIDE 103 MMOL/L (98-107); CREATININE SERUM 0.91 MG/DL (0.60-1.30); GFR ESTIMATED > 60; GLUCOSE 129 MG/DL (70-105); POTASSIUM 4.2 MMOL/L (3.6-5.0); SODIUM 139 MMOL/L (135-145)
[2017-03-13 11:21] LABS: CLARITY,URINE SLIGHTLY CLOUDY; COLOR,URINE YELLOW; GLUCOSE, URINE (UA) NEGATIVE (NEGATIVE); KETONES,URINE 2+ (NEGATIVE); LEUKOCYTE ESTERASE ,URINE 3+ (NEGATIVE); NITRITE,URINE NEGATIVE (NEGATIVE); PH,URINE 5 (5-9); PROTEIN,URINE 2+ (NEGATIVE); UROBILINOGEN,URINE 1 MG/DL (NORMAL)
[2017-03-13 11:37] LABS: BACTERIA,URINE FEW /HPF; BILIRUBIN,URINE 2+ (NEGATIVE); CALCIUM OXALATE CRYSTALS,UR MODERATE /LPF; RBC,URINE 0-2 /HPF
--- NOTE | 2017-03-13 12:01 | ED General ---
General Chief Complaint: Dizziness/Syncope Stated Complaint: PASSED OUT 2 X THIS AM Nursing Triage Note: ARRIVED VIA WC TO ROOM 05. STATES SHE HAS BECAME DIZZY TWICE TODAY THAT HAS CAUSED HER TO FALL. DENIES HITTING HEAD OR LOC. Nursing Sepsis Screen: No Definite Risk Source of Information: Patient, Family History of Present Illness Date Seen by Provider: Mar 13, 2017 Time Seen by Provider: 11:57 Initial Comments The patient is a 71-year-old white female who presents with the complaint of having felt lightheaded and dropped to the floor twice. She reports that on the first occasion she was walking from the kitchen to the front room and became very lightheaded and dropped. She suffered no particular injury but still complains of lightheadedness and general weakness. It is significant that she states over the last 4-1/2 years she has lost over 100 pounds. She had a cholecystectomy performed 3 weeks ago and has lost an additional 10 pounds. She states that she still does not have much of an appetite. Blood pressures as recorded at admission showed 3 relatively significant orthostatic Drops in blood pressure Timing/Duration: 4-6 Hours Associated Systoms: Weakness Allergies and Home Medications Allergies Coded Allergies: No Known Drug Allergies (Unverified , 02/19/17) Home Medications Alprazolam 0.25 Mg Tablet, 0.25 MG PO TID PRN for ANXIETY, (Reported) Amlodipine Besylate 5 Mg Tablet, 5 MG PO DAILY, (Reported) Citalopram Hydrobromide 40 Mg Tablet, 40 MG PO HS, (Reported) Fexofenadine HCl 60 Mg Tablet, 60 MG PO BID PRN for CONGESTION, (Reported) Hydrocodone Bit/Acetaminophen 1 Each Tablet, 1 TAB PO Q6H PRN, #20 Ref 0 Prescribed by: ALEXSANDER BARRERA on 02/19/171937 Levothyroxine Sodium 75 Mcg Tablet, 75 MCG PO DAILY, (Reported) Lisinopril 20 Mg Tablet, 20 MG PO DAILY, (Reported) Simvastatin 40 Mg Tablet, 40 MG PO DAILY, (Reported) Sucralfate 1 Gm Tablet, 1 GM PO QID PRN for HEARTBURN, (Reported) Constitutional: see HPI EENTM: no symptoms reported Respiratory: no symptoms reported Cardiovascular: other (hypertension) Gastrointestinal: loss of appetite Genitourinary: no symptoms reported Musculoskeletal: muscle weakness Skin: no symptoms reported Psychiatric/Neurological: No Symptoms Reported Hematologic/Lymphatic: No Symptoms Reported Immunological/Allergic: no symptoms reported Past Srbqzfd-Akhmxr-Dmlnqr Hx Patient Social History Alcohol Use: Denies Use Recreational Drug Use: No Smoking Status: Never a Smoker Recent Foreign Travel: No Contact w/Someone Who Travel: No Recent Infectious Disease Expo: No Recent Hopitalizations: No Immunizations Up To Date Tetanus Booster (TDap): Less than 5yrs PED Vaccines UTD: No Date of Pneumonia Vaccine: Dec 04, 2013 Date of Influenza Vaccine: Feb 20, 2017 Seasonal Allergies Seasonal Allergies: Yes Surgeries History of Surgeries: Yes (D&C) Surgeries: Orthopedic Respiratory History of Respiratory Disorde: No Currently Using CPAP: No Currently Using BIPAP: No Cardiovascular History of Cardiac Disorders: Yes Cardiac Disorders: High Cholesterol, Hypertension Neurological History of Neurological Disord: No Reproductive System Hx Reproductive Disorders: No Sexually Transmitted Disease: No HIV/AIDS: No Female Reproductive Disorders: Denies Genitourinary History of Genitourinary Disor: No Genitourinary Disorders: Kidney Infection, UTI-Chronic Gastrointestinal History of Gastrointestinal Di: Yes Gastrointestinal Disorders: Gastroesophageal Reflux, Hiatal Hernia, Irritable Bowel Musculoskeletal History of Musculoskeletal Dis: Yes Musculoskeletal Disorders: Arthritis Endocrine History of Endocrine Disorders: Yes Endocrine Disorders: Hypothyroidsim HEENT History of HEENT Disorders: No Loss of Vision: Bilateral Hearing Impairment: Denies Cancer History of Cancer: No Psychosocial History of Psychiatric Problem: Yes Behavioral Health Disorders: Anxiety, Depression Integumentary History of Skin or Integumenta: No Blood Transfusions History of Blood Disorders: No Adverse Reaction to a Blood Tr: No (N/A) Family Medical History Significant Family History: Cancer, CAD Under 55 Years Old, Diabetes Family Medial History: Arthritis Cardiovascular disease Cataracts Colon cancer Diabetes mellitus Hypertension Myocardial infarction Parkinson's disease Psychosocial problem Respiratory disorder Thyroid disease Visual disorder Physical Exam Vital Signs Vital Sign - Last 12Hours 03/13/17 10:28 Temp 98.0 Pulse 108 Resp 18 B/P (MAP) 76/57 (63) Pulse Ox 100 Capillary Refill : Less Than 3 Seconds General Appearance: Mild Distress Eyes: Bilateral Eye Normal Inspection HEENT: Normal ENT Inspection Neck: Normal Inspection Respiratory: Chest Non Tender, Lungs Clear, Normal Breath Sounds, No Accessory Muscle Use, No Respiratory Distress Cardiovascular: Regular Rate, Rhythm, No Edema, No Gallop, No JVD, No Murmur, Normal Peripheral Pulses Gastrointestinal: Normal Bowel Sounds, No Organomegaly, No Pulsatile Mass, Non Tender, Soft, Other (skin hands rather loosely on limbs and belly) Back: Normal Inspection Extremity: Normal Capillary Refill Neurologic/Psychiatric: Alert, Oriented x3, No Motor/Sensory Deficits, Normal Mood/Affect Skin: Normal Color, Warm/Dry Lymphatic: No Adenopathy Progress/Results/Core Measures Suspected Sepsis Recent Fever Within 48 Hours: No Infection Criteria Present: None New/Unexplained Altered Menta: No Sepsis Screen: No Definite Risk Sepsis Diagnosis: SIRS Temperature:98.0 Pulse: 128 Respiratory Rate: 18 Laboratory Tests 03/13/17 10:38: White Blood Count 7.7 Blood Pressure 86 /55 Mean: 65 Laboratory Tests 03/13/17 10:38: Creatinine 0.91, Platelet Count 314, Total Bilirubin 0.8 Results/Orders Lab Results Laboratory Tests Test 03/13/17 10:38 03/13/17 11:11 Range/Units White Blood Count 7.7 4.3-11.0 10^3/uL Red Blood Count 4.93 4.35-5.85 10^6/uL Hemoglobin 16.2 H 11.5-16.0 G/DL Hematocrit 47 35-52 % Mean Corpuscular Volume 94 80-99 FL Mean Corpuscular Hemoglobin 33 25-34 PG Mean Corpuscular Hemoglobin Concent 35 32-36 G/DL Red Cell Distribution Width 12.6 10.0-14.5 % Platelet Count 314 130-400 10^3/uL Mean Platelet Volume 9.0 7.4-10.4 FL Neutrophils (%) (Auto) 64 42-75 % Lymphocytes (%) (Auto) 25 12-44 % Monocytes (%) (Auto) 10 0-12 % Eosinophils (%) (Auto) 1 0-10 % Basophils (%) (Auto) 0 0-10 % Neutrophils # (Auto) 5.0 1.8-7.8 X 10^3 Lymphocytes # (Auto) 1.9 1.0-4.0 X 10^3 Monocytes # (Auto) 0.8 0.0-1.0 X 10^3 Eosinophils # (Auto) 0.1 0.0-0.3 10^3/uL Basophils # (Auto) 0.0 0.0-0.1 10^3/uL Sodium Level 139 135-145 MMOL/L Potassium Level 4.2 3.6-5.0 MMOL/L Chloride Level 103 98-107 MMOL/L Carbon Dioxide Level 23 21-32 MMOL/L Anion Gap 13 5-14 MMOL/L Blood Urea Nitrogen 11 7-18 MG/DL Creatinine 0.91 0.60-1.30 MG/DL Estimat Glomerular Filtration Rate > 60 BUN/Creatinine Ratio 12 Glucose Level 129 H 70-105 MG/DL Calcium Level 9.5 8.5-10.1 MG/DL Total Bilirubin 0.8 0.1-1.0 MG/DL Aspartate Amino Transf (AST/SGOT) 21 5-34 U/L Alanine Aminotransferase (ALT/SGPT) 20 0-55 U/L Alkaline Phosphatase 56 40-136 U/L Total Protein 7.0 6.4-8.2 GM/DL Albumin 4.0 3.2-4.5 GM/DL Urine Color YELLOW Urine Clarity SLIGHTLY CLOUDY Urine pH 5 5-9 Urine Specific [place] 1.030 H 1.016-1.022 Urine Protein 2+ H NEGATIVE Urine Glucose (UA) NEGATIVE NEGATIVE Urine Ketones 2+ H NEGATIVE Urine Nitrite NEGATIVE NEGATIVE Urine Bilirubin 2+ H NEGATIVE Urine Urobilinogen 1 NORMAL MG/DL Urine Leukocyte Esterase 3+ H NEGATIVE Urine RBC (Auto) 1+ H NEGATIVE Urine RBC 0-2 /HPF Urine WBC 5-10 H /HPF Urine Squamous Epithelial Cells 2-5 /HPF Urine Crystals PRESENT H /LPF Urine Calcium Oxalate Crystals MODERATE H /LPF Urine Bacteria FEW H /HPF Urine Casts PRESENT /LPF Urine Hyaline Casts 10-25 H /LPF Urine Mucus MODERATE H /LPF Urine Culture Indicated YES My Orders Orders - MITRA GREENE MD Cbc With Automated Diff (03/13/17 10:35) Comprehensive Metabolic Panel (03/13/17 10:35) Ua Culture If Indicated (03/13/17 10:35) Ekg Tracing (03/13/17 10:35) Urine Culture (03/13/17 11:11) Vital Signs/I&O Vital Sign - Last 12Hours 03/13/17 03/13/17 10:28 10:32 Temp 98.0 Pulse 108 96 104 128 Resp 18 B/P (MAP) 76/57 (63) 99/72 (81) 94/66 (75) 86/55 (65) Pulse Ox 100 Capillary Refill : Less Than 3 Seconds Blood Pressure Mean: 65 Departure Communication (Admissions) Progress Notes UA suggests the possibility of urinary tract infection. Impression Impression: Primary Impression: orthostatic hypotension Additional Impression: UTI Disposition: HOME, SELF-CARE Condition: Stable/Unchanged Departure-Patient Inst. Decision time for Depature: 12:08 Referrals: MIAH EATON MD (PCP/Family) Primary Care Physician Patient Instructions: Orthostatic Hypotension (DC) Add. Discharge Instructions: All discharge instructions reviewed with patient and/or family. Voiced understanding. Stop lisinopril Take Omnicef as directed Increase fluids Scripts Cefdinir (Cefdinir) 300 Mg Capsule 300 MG PO twice a day, #14 CAP Prov: MITRA GREENE MD 03/13/17 MITRA GREENE MD Mar 13, 2017 12:01
[2017-03-13] MEDS ORDERED: CEFD300C3 PO (12:10)
[2017-03-13] MEDS ORDERED: NS IV 1000 ML 1,000 ML IV SCH (12:15)
[2017-03-13 13:59] VITALS: BP 127/71
== END 2017-03-13 13:59 | disposition home or self-care (01) ==
LOC: EDUNIT# 10:11 → ER 10:13
DX: I95.1 Orthostatic hypotension (principal); N39.0 Urinary tract infection, site not specified; E78.00 Pure hypercholesterolemia, unspecified; I10 Essential (primary) hypertension; K21.9 Gastro-esophageal reflux disease without esophagitis; E03.9 Hypothyroidism, unspecified; F41.9 Anxiety disorder, unspecified; F32.9 Major depressive disorder, single episode, unspecified; Z87.19 Personal history of other diseases of the digestive system; Z90.49 Acquired absence of other specified parts of digestive tract
CPT/HCPCS: 36415; 80053; 81000; 85025; 87088; 93005; 96360; 96361

== ENCOUNTER 2018-07-12 09:13 | Emergency (ER) | payer MEDICARE ==
[~2018-07-12] VITALS: Ht 157.5 cm; Wt 68.0 kg
[~2018-07-12 09:13] MED LIST changes: -AMLO5TAB2 PO; +AMLO5TAB9 PO; +CEFD300C3 PO
[2018-07-12] MEDS ORDERED: NS IV 1000 ML 1,000 ML IV SCH (09:50)
[2018-07-12] MEDS ORDERED: FAMOTIDINE 20 MG (PEPCID) TABLET PO STA (09:50)
[2018-07-12] MEDS ORDERED: LIDOCAINE 2% VISCOUS 15 ML UDC PO ONE (10:00)
[2018-07-12] MEDS ORDERED: ASPIRIN 81 MG CHEW (CHILDREN'S ASA) PO ONE (10:00)
[2018-07-12] MEDS ORDERED: ONDANSETRON 4 MG/2 ML (SDV) Z0FRAN IVP ONE (10:00)
[2018-07-12] MEDS ORDERED: ANTACID SUSP 30 ML UDC (MYLANTA) PO ONE (10:00)
--- NOTE | 2018-07-12 10:04 | ED Syncope ---
General Chief Complaint: General Problems/Pain Stated Complaint: NAUSEA;WEAKNESS Nursing Triage Note: PT STATES WEAKNESS AND NAUSEA, STATES PT HAS HAD SEVERAL UTI'S, CURRENT YEAST INFECTION, STARTED ON A PARKINSON'S MED A COUPLE MONTHS AGO. FEELS LIKE HER HEART IS RACING, PULSE IN 80'S AT TRIAGE, PT PLACED ON MONITOR. PT HAS BEEN FEELING BAD FOR ABOUT A YEAR AND A HALF WITH WEIGHT LOSS AND BLACKED OUT A COUPLE WEEKS AGO AND HIT HER HEAD, DID NOT SEE A DR. STATES PT HAD A STAY AT [facility] THIS PAST YEAR. Source of Information: Patient, Spouse Exam Limitations: No Limitations (CITLALY PURVIS) History of Present Illness Date Seen by Provider: July 12, 2018 Time Seen by Provider: 09:43 Initial Comments The patient presents to the ER by private conveyance with her and chief complaint that she woke up this morning with quite a bit of nausea but no vomiting. She felt very weak and said she was very hard for her to get out of bed. She had some near syncopal episodes and falls about 3 or 4 weeks ago. Been going on for about a month or so. She started a new medicine for Parkinson's, carbidopa levodopa April and said she was losing weight because she was had poor appetite prior to that but the syncopal episodes again probably after starting the medicine. She sees Dr. Eaton, and has also been treated multiple times in the past year and a half for UTIs and subsequent yeast infections. She feels that she has a UTI and yeast infection right now. She completed Diflucan about a month ago and antibiotics about 2-3 weeks ago. She saw a urologist one year ago and at that time he did scopes in latter scans could not find anything contributing to her infections. Her relates that she did spend several days at [facility]. She does not have anything at home for nausea. She's having general discomfort and points to her chest and abdomen. She denies pain or coronary disease. She does have high blood pressure, hypercholesterolemia but no diabetes or smoking. She has a hiatal hernia, history of strong gastritis. She has not taken any for her discomfort. (CITLALY PURVIS) Allergies and Home Medications Allergies Coded Allergies: No Known Drug Allergies (Unverified , 02/19/17) Home Medications Alprazolam 0.25 Mg Tablet, 0.25 MG PO TID PRN for ANXIETY, (Reported) Amlodipine Besylate 5 Mg Tablet, 5 MG PO DAILY, (Reported) Citalopram Hydrobromide 40 Mg Tablet, 40 MG PO HS, (Reported) Fexofenadine HCl 60 Mg Tablet, 60 MG PO BID PRN for CONGESTION, (Reported) Hydrocodone Bit/Acetaminophen 1 Each Tablet, 1 TAB PO Q6H PRN Prescribed by: ALEXSANDER BARRERA on 02/19/171937 Levothyroxine Sodium 75 Mcg Tablet, 75 MCG PO DAILY, (Reported) Simvastatin 40 Mg Tablet, 40 MG PO DAILY, (Reported) Sucralfate 1 Gm Tablet, 1 GM PO QID PRN for HEARTBURN, (Reported) Patient Home Medication List Home Medication List Reviewed: Yes (CITLALY PURVIS) Review of Systems Constitutional: No chills, No diaphoresis EENTM: No ear discharge, No ear pain Respiratory: No cough, No short of breath Cardiovascular: see HPI, chest pain; No Hx of Intervention; palpitations, syncope Gastrointestinal: see HPI, abdominal pain (generalized all 4 quadrants discomfort); No constipation, No diarrhea; nausea; No vomiting Genitourinary: discharge, dysuria Musculoskeletal: No back pain, No joint pain Skin: rash (right inguinal) (CITLALY PURVIS) Past Wsvvhor-Rllmws-Ysmxal Hx Patient Social History Alcohol Use: Denies Use Recreational Drug Use: No Smoking Status: Never a Smoker Recent Foreign Travel: No Contact w/Someone Who Travel: No Recent Infectious Disease Expo: No Recent Hopitalizations: No (CITLALY PURVIS) Immunizations Up To Date Tetanus Booster (TDap): Less than 5yrs PED Vaccines UTD: No Date of Pneumonia Vaccine: Dec 04, 2013 Date of Influenza Vaccine: Feb 20, 2017 (CITLALY PURVIS) Seasonal Allergies Seasonal Allergies: Yes (CITLALY PURVIS) Past Medical History Surgeries: Yes (D&C) Orthopedic Respiratory: No Currently Using CPAP: No Currently Using BIPAP: No Cardiac: Yes High Cholesterol, Hypertension Neurological: No Reproductive Disorders: No Female Reproductive Disorders: Denies Sexually Transmitted Disease: No HIV/AIDS: No Genitourinary: No Kidney Infection, UTI-Chronic Gastrointestinal: Yes Gastroesophageal Reflux, Hiatal Hernia, Irritable Bowel Musculoskeletal: Yes Arthritis Endocrine: Yes Hypothyroidsim HEENT: No Loss of Vision: Bilateral Hearing Impairment: Denies Cancer: No Psychosocial: Yes Anxiety, Depression Integumentary: No Blood Disorders: No Adverse Reaction/Blood Tranf: No (N/A) (CITLALY PURVIS) Family Medical History Arthritis Cardiovascular disease Cataracts Colon cancer Diabetes mellitus Hypertension Myocardial infarction Parkinson's disease Psychosocial problem Respiratory disorder Thyroid disease Visual disorder Cancer, CAD Under 55 Years Old, Diabetes (CITLALY PURVIS) Physical Exam Vital Signs Vital Signs - First Documented 07/12/18 09:29 Temp 96.6 Pulse 82 Resp 18 B/P (MAP) 131/92 (105) Pulse Ox 98 O2 Delivery Room Air (SPENSER ALBERT APRN) Vital Signs Capillary Refill : Less Than 3 Seconds (CITLALY PURVIS) Height, Weight, BMI Height: 5'2.00" Weight: 150lbs. 0.0oz. 68.855352kb; 36.6 BMI Method:Stated General Appearance: No Apparent Distress, Other (bradykinetic with a mild tremor) HEENT: PERRL/EOMI, TMs Normal, Normal ENT Inspection, Pharynx Normal; No Moist Mucous Membranes Neck: Full Range of Motion, Normal Inspection, Supple Cardiovascular: Regular Rate, Rhythm, Normal Peripheral Pulses Respiratory: Chest Non Tender, Lungs Clear, Normal Breath Sounds, No Accessory Muscle Use, No Respiratory Distress Gastrointestinal: Normal Bowel Sounds, Non Tender, Soft Neurologic/Psychiatric: Alert, Oriented x3 Cranial Nerves: Normal Hearing, Normal Speech, PERRL Coordination/Gait: Other (bradykinetic gait) Skin: Other (Gaulding under her pannus without any breakdown of the skin.) (CITLALY PURVIS) Progress/Results/Core Measures Results/Orders Lab Results Laboratory Tests Test 07/12/18 09:50 07/12/18 11:35 Range/Units White Blood Count 4.2 L 4.3-11.0 10^3/uL Red Blood Count 5.29 4.35-5.85 10^6/uL Hemoglobin 16.4 H 11.5-16.0 G/DL Hematocrit 48 35-52 % Mean Corpuscular Volume 92 80-99 FL Mean Corpuscular Hemoglobin 31 25-34 PG Mean Corpuscular Hemoglobin Concent 34 32-36 G/DL Red Cell Distribution Width 13.4 10.0-14.5 % Platelet Count 259 130-400 10^3/uL Mean Platelet Volume 9.4 7.4-10.4 FL Neutrophils (%) (Auto) 46 42-75 % Lymphocytes (%) (Auto) 43 12-44 % Monocytes (%) (Auto) 8 0-12 % Eosinophils (%) (Auto) 2 0-10 % Basophils (%) (Auto) 1 0-10 % Neutrophils # (Auto) 1.9 1.8-7.8 X 10^3 Lymphocytes # (Auto) 1.8 1.0-4.0 X 10^3 Monocytes # (Auto) 0.3 0.0-1.0 X 10^3 Eosinophils # (Auto) 0.1 0.0-0.3 10^3/uL Basophils # (Auto) 0.0 0.0-0.1 10^3/uL Prothrombin Time 12.4 12.2-14.7 SEC INR Comment 0.9 0.8-1.4 Activated Partial Thromboplast Time 24 24-35 SEC Sodium Level 142 135-145 MMOL/L Potassium Level 3.7 3.6-5.0 MMOL/L Chloride Level 105 98-107 MMOL/L Carbon Dioxide Level 22 21-32 MMOL/L Anion Gap 15 H 5-14 MMOL/L Blood Urea Nitrogen 11 7-18 MG/DL Creatinine 0.77 0.60-1.30 MG/DL Estimat Glomerular Filtration Rate > 60 BUN/Creatinine Ratio 14 Glucose Level 96 70-105 MG/DL Calcium Level 9.5 8.5-10.1 MG/DL Corrected Calcium 9.3 8.5-10.1 MG/DL Magnesium Level 2.4 1.8-2.4 MG/DL Total Bilirubin 0.9 0.1-1.0 MG/DL Aspartate Amino Transf (AST/SGOT) 21 5-34 U/L Alanine Aminotransferase (ALT/SGPT) 13 0-55 U/L Alkaline Phosphatase 68 40-136 U/L Myoglobin 39.0 10.0-92.0 NG/ML Troponin I < 0.028 <0.028 NG/ML C-Reactive Protein High Sensitivity 0.07 0.00-0.50 MG/DL Total Protein 6.9 6.4-8.2 GM/DL Albumin 4.2 3.2-4.5 GM/DL Thyroid Stimulating Hormone (TSH) 19.40 H 0.35-4.94 UIU/ML Urine Color YELLOW Urine Clarity CLEAR Urine pH 5 5-9 Urine Specific [place] 1.030 H 1.016-1.022 Urine Protein 2+ H NEGATIVE Urine Glucose (UA) NEGATIVE NEGATIVE Urine Ketones 1+ H NEGATIVE Urine Nitrite NEGATIVE NEGATIVE Urine Bilirubin NEGATIVE NEGATIVE Urine Urobilinogen 1 NORMAL MG/DL Urine Leukocyte Esterase 2+ H NEGATIVE Urine RBC (Auto) 1+ H NEGATIVE Urine RBC 0-2 /HPF Urine WBC 5-10 H /HPF Urine Squamous Epithelial Cells 5-10 /HPF Urine Crystals PRESENT H /LPF Urine Calcium Oxalate Crystals MODERATE H /LPF Urine Bacteria NEGATIVE /HPF Urine Casts NONE /LPF Urine Mucus MODERATE H /LPF Urine Culture Indicated YES (SPENSER ALBERT APRN) Micro Results Microbiology 07/12/18 Wet Prep - Final, Complete (SPENSER ALBERT APRN) Medications Given in ED Current Medications Medications Dose Ordered Sig/Ron Route Start Time Stop Time Status Last Admin Dose Admin Al Hydrox/Mg Hydrox/Simethicone 30 ml ONCE ONCE PO 07/12/18 10:00 07/12/18 10:01 DC 07/12/18 10:13 30 ML Aspirin 324 mg ONCE ONCE PO 07/12/18 10:00 07/12/18 10:01 DC 07/12/18 10:13 324 MG Lidocaine HCl 15 ml ONCE ONCE PO 07/12/18 10:00 07/12/18 10:01 DC 07/12/18 10:13 15 ML Ondansetron HCl 4 mg ONCE ONCE IVP 07/12/18 10:00 07/12/18 10:01 DC 07/12/18 10:13 4 MG Sodium Chloride 500 ml @ 0 mls/hr Q0M ONCE IV 07/12/18 10:07 07/12/18 10:08 DC 07/12/18 10:49 500 MLS/HR (SPENSER ALBERT APRN) Vital Signs/I&O 07/12/18 07/12/18 07/12/18 09:29 10:13 10:35 Temp 96.6 96.6 Pulse 82 74 79 93 Resp 18 B/P (MAP) 131/92 (105) 122/86 (98) 109/76 (87) 98/66 (77) Pulse Ox 98 O2 Delivery Room Air (SPENSER ALBERT APRN) Blood Pressure Mean: 105 Progress Progress Note #1: Time: 10:01 Progress Note We'll give her an aspirin and GI cocktail. Her blood pressure is 122/86 so we'll hold off on nitroglycerin and instead check a set of orthostatic vital signs. She was unable to produce any urine so we'll give her a liter of saline and then plan to do a vaginal exam to obtain a wet prep. She describes having a rash in her groin area that we can examine at that time. Lungs are clear, heart rate is regular. Orthostatic vital signs were positive with a 24 mmHg systolic dropped from lying to standing. We'll give her a 1500 cc bolus which is around 20 mL/kg and reevaluate. Her history of Parkinson's is probably contributing to her dysautonomia. Progress Note #2: Time: 11:26 Progress Note The patient's TSH is elevated at about 20. She states she does take her Synthroid everyday on schedule and uses a pill systems planner however she has been out for about 2 days. She is on 112 g of Synthroid. We'll get a free T4 and see if we need to make any adjustments to her Synthroid. She also has Shireen listed for twice a day 60 mg and we've encouraged her that it may contribute to her near syncopal events as well and that she should have a discussion with her primary care doctor before resuming that medicine. After 1500 cc of IV fluids she is going to attempt to give us a urine specimen. We'll put some oral fluids. Her nausea was gone after the first dose of Zofran. Her discomfort has resolved and her chest and abdomen after the GI cocktail. She is presently on Carafate. We'll do a delta troponin however his does not seem to be coronary related. After the IV fluids her blood pressure has improved to 142/79. She is on amlodipine 5 mg daily. (CITLALY PURVIS) Initial ECG Impression Date: July 12, 2018 Initial ECG Impression Time: 09:49 Initial ECG Rate: 75 Initial ECG Rhythm: Normal Sinus Initial ECG Intervals: Normal Initial ECG Impression: Nonspecific Changes Comment Sinus rhythm with a right bundle branch block but no ST elevation or depression. (CITLALY PURVIS) Diagnostic Imaging Diagonstic Imaging: Xray Plain Films/CT/US/NM/MRI: chest (two-view) Comments NAME: LUNA COLLAZO [facility] REC#: [id number] PT STATUS: REG ER : 1945 PHYSICIAN: CITLALY PURVIS MD ADMIT DATE: 07/12/18/ER Draft Date of Exam:07/12/18 CHEST PA/LAT (2 VIEW) Indication: Nausea and weakness. Time of exam: 10:30 AM No prior chest radiographs available for comparison. Heart size is normal. There is mild ectasia and tortuosity of the descending thoracic aorta. The lungs are clear. No infiltrate or failure is detected. No effusion or pneumothorax is seen. Impression: No acute cardiopulmonary process is detected. Dictated on workstation # [id number] Dict: 07/12/18 1044 Trans: 07/12/18 1046 [facility] [id number] Interpreted by: NARCISA FICSHER MD Electronically signed by: Reviewed: Reviewed by Me (CITLALY PURVIS) Departure Impression Primary Impression: Orthostatic hypotension Additional Impressions: Tinea corporis Hypothyroidism Qualified Codes: E03.9 - Hypothyroidism, unspecified Disposition: HOME, SELF-CARE Condition: Improved Departure-Patient Inst. Decision time for Depature: 11:58 (SPENSER ALBERT APRN) Referrals: MIAH EATON MD (PCP/Family) Primary Care Physician Patient Instructions: Yeast Infection (DC), Urinary Tract Infection, Adult (DC) Add. Discharge Instructions: Apply the powder beneath the abdominal folds 3 times daily for 7 days 2. Return to ER for any concerns 3. All discharge instructions reviewed with patient and/or family. Voiced understanding. Scripts Nystatin (Nystatin) 15 Gm Powder 15 GM TP TID for 10 Days, #1 EA Prov: SPENSER ALBERT MORTAR MAKER 07/12/18 Cefuroxime Axetil (Cefuroxime) 250 Mg Tablet 250 MG PO BID, #10 TAB Prov: SPENSER ALBERT APRN 07/12/18 Copy Copies To 1: MIAH EATON MD, TITUS J July 12, 2018 10:03 SPENSER ALBERT APRN July 12, 2018 11:58
[2018-07-12] MEDS ORDERED: NS IV 500 ML 500 ML IV ONE (10:07)
[2018-07-12 10:11] LABS: BASOPHILS % (AUTO) 1 % (0-10); EOSINOPHILS # (AUTO) 0.1 10^3/uL (0.0-0.3); EOSINOPHILS % (AUTO) 2 % (0-10); HEMATOCRIT 48 % (35-52); HEMOGLOBIN 16.4 G/DL (11.5-16.0); LYMPHOCYTES # (AUTO) 1.8 X 10^3 (1.0-4.0); LYMPHOCYTES % (AUTO) 43 % (12-44); MEAN CORPUSCULAR HEMOGLOBIN 31 PG (25-34); MEAN CORPUSCULAR HGB CONC 34 G/DL (32-36); MEAN CORPUSCULAR VOLUME 92 FL (80-99); MEAN PLATELET VOLUME 9.4 FL (7.4-10.4); MONOCYTES # (AUTO) 0.3 X 10^3 (0.0-1.0); MONOCYTES % (AUTO) 8 % (0-12); NEUTROPHILS # (AUTO) 1.9 X 10^3 (1.8-7.8); NEUTROPHILS % (AUTO) 46 % (42-75); PLATELET COUNT 259 10^3/uL (130-400); RED CELL DISTRIBUTION WIDTH 13.4 % (10.0-14.5); WHITE BLOOD COUNT 4.2 10^3/uL (4.3-11.0)
[2018-07-12 10:24] LABS: INR 0.9 (0.8-1.4); PROTHROMBIN TIME PATIENT 12.4 SEC (12.2-14.7)
[2018-07-12 10:34] LABS: ALANINE AMINOTRANSFERASE 13 U/L (0-55); ALBUMIN 4.2 GM/DL (3.2-4.5); ALKALINE PHOSPHATASE 68 U/L (40-136); BILIRUBIN,TOTAL 0.9 MG/DL (0.1-1.0); BUN/CREATININE RATIO 14; CALCIUM 9.5 MG/DL (8.5-10.1); CARBON DIOXIDE 22 MMOL/L (21-32); CHLORIDE 105 MMOL/L (98-107); CREATININE SERUM 0.77 MG/DL (0.60-1.30); GFR ESTIMATED > 60; GLUCOSE 96 MG/DL (70-105); MAGNESIUM 2.4 MG/DL (1.8-2.4); POTASSIUM 3.7 MMOL/L (3.6-5.0); SODIUM 142 MMOL/L (135-145); TOTAL PROTEIN 6.9 GM/DL (6.4-8.2)
[2018-07-12 10:35] VITALS: BP_SYST 109; BP_SYST 122; BP_SYST 98; BP_DIAS 66; BP_DIAS 76; BP_DIAS 86
--- NOTE | 2018-07-12 10:46 | Diagnostic Imaging Report ---
Indication: Nausea and weakness. Time of exam: 10:30 AM No prior chest radiographs available for comparison. Heart size is normal. There is mild ectasia and tortuosity of the descending thoracic aorta. The lungs are clear. No infiltrate or failure is detected. No effusion or pneumothorax is seen. Impression: No acute cardiopulmonary process is detected. Dictated by: Dictated on workstation # [id number]
[2018-07-12 11:45] LABS: BILIRUBIN,URINE NEGATIVE (NEGATIVE); CLARITY,URINE CLEAR; COLOR,URINE YELLOW; GLUCOSE, URINE (UA) NEGATIVE (NEGATIVE); KETONES,URINE 1+ (NEGATIVE); LEUKOCYTE ESTERASE ,URINE 2+ (NEGATIVE); NITRITE,URINE NEGATIVE (NEGATIVE); PH,URINE 5 (5-9); PROTEIN,URINE 2+ (NEGATIVE); UROBILINOGEN,URINE 1 MG/DL (NORMAL)
--- OUTSIDE RECORDS SUMMARY | 2018-07-12 11:50 | XMS REPORT ---
Author Author Shaun De Leon [facility] Address [address] [place], [place] [id number] Care Team Providers Care Corner Former Name Role Phone DaleShaun peralta PCP Allergies and Adverse Reactions Name Reaction Notes No known allergies Plan of Treatment Not available. Medications Active Name Start Date Estimated Completion Date SIG Comments amlodipine 5 mg oral tablet take 1 tablet (5 mg) by oral route once daily citalopram 40 mg oral tablet take 1 tablet (40 mg) by oral route once daily simvastatin 40 mg oral tablet take 1 tablet (40 mg) by oral route once daily in the evening levothyroxine 112 mcg oral tablet take 1 tablet (112 mcg) by oral route once daily alprazolam 0.25 mg oral tablet take 1 tablet (0.25 mg) by oral route 3 times per day as needed fluticasone 50 mcg/actuation nasal spray,suspension spray 1 spray (50 mcg) in each nostril by intranasal route once daily sucralfate 1 gram oral tablet take 1 tablet (1 gram) by oral route 4 times per day on an empty stomach 1 hour before meals and at bedtime fexofenadine 60 mg oral tablet take 1 tablet (60 mg) by oral route 2 times per day Macrobid 100 mg oral capsule 05/22/2017 take 1 capsule (100 mg) by oral route every 12 hours with food for 10 days Estrace 0.01 % (0.1 mg/gram) vaginal cream 05/26/2017 place pea-sized amount of cream to the anterior side of vaginal opening once daily for 3 weeks, then MWF thereafter Discontinued Name Start Date Discontinued Date SIG Comments Macrobid 100 mg oral capsule 05/22/2017 05/22/2017 take 1 capsule (100 mg) by oral route every 12 hours with food for 10 days Problem List Not available. Vital Signs Date Time BP-Sys(mm[Hg] BP-Tanisha(mm[Hg]) HR(bpm) RR(rpm) Temp WT HT HC BMI BSA BMI Percentile O2 Sat(%) 05/22/2017 9:47:00 AM 130 mmHg 70 mmHg 97 bpm 95.9 F 198 lbs 62 in 36.21 kg/m2 1.98 m2 98 % Social History Name Description Comments retired Alcohol Never Tobacco Never smoker History of Procedures Date Ordered Description Order Status 05/22/2017 10:01 AM URINALYSIS AUTO W/O SCOPE Reviewed 05/22/2017 12:00 AM URINALYSIS AUTO W/SCOPE Reviewed 05/22/2017 12:00 AM COMPLETE CBC W/AUTO DIFF WBC Reviewed 05/22/2017 12:00 AM METABOLIC PANEL TOTAL CA Reviewed 05/26/2017 12:00 AM CYSTOSCOPY Reviewed Results Summary Date and Description Results 05/22/2017 10:01 AM Clarity Ur -- Urine-Color yellow Glucose Ur-sCnc neg Bilirub Ur Ql moderate Ketones Ur Ql Strip 15 Sp Gr Ur Qn >=1.030 Hgb Ur Ql Strip neg pH Ur-LsCnc 5.0 Prot Ur Ql Strip 30 Urobilinogen Ur-mCnc 1.0 Nitrite Ur Ql Strip neg WBC # Ur small 05/22/2017 11:19 AM COLOR YELLOW APPEARANCE CLEAR SPEC GRAV >=1.030 pH 5.5 PROTEIN TRACE GLUCOSE NEGATIVE mg/dLKETONE TRACE BILIRUBIN SMALL BLOOD NEGATIVE NITRITE NEGATIVE LEUK SCREEN TRACE WBC/HPF 5-10 RBC/HPF 0-3 CASTS/LPF 2++ HYALINE /LPFCRYSTALS NEGATIVE MUCOUS THRDS 1+ BACTERIA FEW EPITH CELLS NEGATIVE /HPFTRICHOMONAS NEGATIVE YEAST NEGATIVE CULT SET UP? YES 05/22/2017 11:24 AM GLUCOSE 98.0 mg/dLSODIUM 139.0 mmol/LPOTASSIUM 4.40 mmol/LCHLORIDE 103.0 mmol/LCO2 27.0 mmol/LBUN 13.0 mg/dLCREATININE 0.80 mg/dLCALCIUM 9.50 mg/dLAGE 71 GFR NonAA 71 GFR AA 86 eGFR >60 mL/min/1.73meGFR AA* >60 WBC 5.7 RBC 4.76 HGB 15.10 g/dLHCT 46.20 %MCV 97.0 fLMCH 31.70 pgMCHC 32.70 g/dLRDW SD 44 RDW CV 12.30 %MPV 9.10 fLPLT 257 NRBC# 0.00 NRBC% 0.0 %NEUT 76.0 %%LYMP 15.70 %%MONO 7.10 %%EOS 0.30 %%BASO 0.70 %#NEUT 4.36 #LYMP 0.90 #MONO 0.41 #EOS 0.02 #BASO 0.04 MANUAL DIFF NOT IND History Of Immunizations Not available. History of Past Illness Name Date of Onset Comments Hypertension Anxiety Depression Dizziness UTI (urinary tract infection) Dysuria May 22 2017 9:59AM Urinary Tract Infection May 22 2017 9:59AM Dysuria May 26 2017 3:22PM Recurrent UTI (urinary tract infection) May 26 2017 3:22PM Atrophic vaginitis May 26 2017 3:22PM Payers Insurance Name Company Name Plan Name Plan Number Policy Number Policy Group Number Start Date Medicare Part B Medicare Of [place] [id number] N/A A[employer] [id number] N/A History of Encounters Visit Date Visit Type Provider 05/26/2017 Procedures Shaun De Leon MD 05/22/2017 Office visit Shaun De Leon MD
--- OUTSIDE RECORDS SUMMARY | 2018-07-12 11:50 | XMS REPORT | Continuity of Care Document ---
Author Organization Unknown Address Unknown Allergies Active Description Code Type Severity Reaction Onset Reported/Identified Relationship to Patient Clinical Status Yes NO KNOWN DRUG ALLERGIES UNKNOWN NO KNOWN DRUG ALLERG Medications Medication Packaging Start Date Stop Date Route Dosage Sig SUCRALFATE TAB 1 GM (CARAFATE) GM 09/21/2017 10/21/2017 ACHS&0630,1130,1630,2100 ACETAMINOPHEN ORAL TABLET 325mg(Tylenol) MG 09/21/2017 10/21/2017 PRN EVERY 6 Hour LOPERAMIDE CAP 2 MG (IMMODIUM) MG 09/21/2017 10/21/2017 PRN QID POLYETHYLENE GLYCOL POWDER UD PWD (MIRALAX 17GM UNIT DOSE PAKS) gm 09/21/2017 10/21/2017 PRN Q3H ALPRAZOLAM TAB 0.25 MG (XANAX) MG 09/21/2017 10/21/2017 PRN Q8H ALUM/MAG/SIMETH 30CC LIQ (MYLANTA PLUS) cc 09/21/2017 10/21/2017 PRN Q4H SERTRALINE TAB 50 MG (ZOLOFT) MG 09/21/2017 10/20/2017 QAM&0800 CLONAZEPAM TAB 0.5 MG (KLONOPIN) MG 09/21/2017 10/21/2017 BID&0800,2000 SIMVASTATIN TAB 40 MG (ZOCOR) MG 09/21/2017 10/20/2017 QPM&2000 CLONAZEPAM TAB 0.5 MG (KLONOPIN) MG 09/21/2017 10/21/2017 BID&0800,2000 MILK OF MAGNESIA LIQ ml 09/21/2017 10/21/2017 PRN BID OLANZAPINE TAB 5 MG (ZYPREXA) MG 09/21/2017 10/20/2017 QHS&2100 MELATONIN TAB 3 MG (MELATONIN) MG 09/21/2017 10/21/2017 PRN QHS AMLODIPINE TAB 5 MG (NORVASC) MG 09/22/2017 10/21/2017 QAM&2000 FERROUS SULFATE TAB 325 MG (FEOSOL) MG 09/22/2017 10/21/2017 QAM&0800 CITALOPRAM TAB 20 MG (CELEXA) MG 09/22/2017 10/21/2017 QAM&0800 MultiVits (Thera M Plus) (dgzioksm-[id number]) oral tablet TAB 09/22/2017 10/21/2017 QAM&0800 CALCIUM 600MG W VIT D TAB 600 MG (OSCAL/W VIT D) MG 09/22/2017 10/21/2017 QAM&0800 ALPHA TOCOPHERYL CAP 400 IU (VIT E) IU 09/22/2017 10/21/2017 QAM&0800 VITAMIN B COMPLEX TAB (B COMPLEX) cap 09/22/2017 10/21/2017 QAM&0800 LEVOTHYROXINE TAB 112 MCG (SYNTHROID) MCG 09/22/2017 10/21/2017 QAM&0800 ASPIRIN ENTERIC COATED TAB 81 MG (BABY ASPIRIN EC) MG 09/22/2017 10/21/2017 Daily&0900 BISACODYL SUPPOS 10 MG (DULCOLAX SUPPOS) MG 09/22/2017 10/22/2017 PRN Daily SERTRALINE TAB 50 MG (ZOLOFT) MG 09/22/2017 10/21/2017 QAM&0800 SUCRALFATE TAB 1 GM (CARAFATE) GM 09/23/2017 09/23/2017 ONCE&1130 SUCRALFATE TAB 1 GM (CARAFATE) GM 09/23/2017 09/30/2017 AC&0600,1130,1630 LEVOTHYROXINE TAB 112 MCG (SYNTHROID) MCG 09/24/2017 09/30/2017 QAM&0600 AMLODIPINE TAB 5 MG (NORVASC) MG 09/24/2017 10/23/2017 QHS&2100 OLANZAPINE DISSOLVABLE TAB 10 MG (ZYPREXA ZYDIS) MG 09/24/2017 10/23/2017 QHS&2100 Problems Date Dx Coded Attending Type Code Diagnosis Diagnosed By 05/22/2017 P N390 Urinary tract infection, site not specified 05/22/2017 S R300 Dysuria 09/21/2017 ZAK HIGGINBOTHAM 311 DEPRESSIVE DISORDER, NOT ELSEWHERE CLASSIFIED 09/21/2017 NEFTALY, ZAK W 401.9 UNSPECIFIED ESSENTIAL HYPERTENSION 09/21/2017 NEFTALY, ZAK W F32.9 MAJOR DEPRESSIVE DISORDER, SINGLE EPISODE, UNSPECIFIED 09/21/2017 NEFTALY, ZAK W I10 ESSENTIAL (PRIMARY) HYPERTENSION 09/21/2017 NEFTALY, ZAK W 311 DEPRESSIVE DISORDER, NOT ELSEWHERE CLASSIFIED 09/21/2017 NEFTALY, ZAK W 401.9 UNSPECIFIED ESSENTIAL HYPERTENSION 09/21/2017 NEFTALY, ZAK W F32.9 MAJOR DEPRESSIVE DISORDER, SINGLE EPISODE, UNSPECIFIED 09/21/2017 NEFTALY, ZAK W I10 ESSENTIAL (PRIMARY) HYPERTENSION 09/24/2017 NEFTALY, ZAK W 311 DEPRESSIVE DISORDER, NOT ELSEWHERE CLASSIFIED 09/24/2017 NEFTALY, ZAK W 401.9 UNSPECIFIED ESSENTIAL HYPERTENSION 09/24/2017 NEFTALY, ZAK W F32.9 MAJOR DEPRESSIVE DISORDER, SINGLE EPISODE, UNSPECIFIED 09/24/2017 NEFTALY, ZAK W I10 ESSENTIAL (PRIMARY) HYPERTENSION 09/30/2017 NEFTALY, ZAK W 244.9 09/30/2017 NEFTALY, ZAK W 272.4 OTHER AND UNSPECIFIED HYPERLIPIDEMIA 09/30/2017 NEFTALY, ZAK A 296.80 09/30/2017 NEFTALY, ZAK W 300.00 09/30/2017 NEFTALY, ZAK W 311 DEPRESSIVE DISORDER, NOT ELSEWHERE CLASSIFIED 09/30/2017 NFETALY, ZAK W 401.9 UNSPECIFIED ESSENTIAL HYPERTENSION 09/30/2017 NEFTALY, ZAK W 530.81 ESOPHAGEAL REFLUX 09/30/2017 NEFTALY, ZAK W 783.21 LOSS OF WEIGHT 09/30/2017 NEFTALY, ZAK W E03.9 HYPOTHYROIDISM, UNSPECIFIED 09/30/2017 NEFTALY, ZAK W E78.5 HYPERLIPIDEMIA, UNSPECIFIED 09/30/2017 NEFTALY, ZAK A F31.9 BIPOLAR DISORDER, UNSPECIFIED 09/30/2017 NEFTALY, ZAK W F32.9 MAJOR DEPRESSIVE DISORDER, SINGLE EPISODE, UNSPECIFIED 09/30/2017 NEFTALY, ZAK W F41.9 ANXIETY DISORDER, UNSPECIFIED 09/30/2017 NEFTALY, ZAK W I10 ESSENTIAL (PRIMARY) HYPERTENSION 09/30/2017 ZAK HIGGINBOTHAM W K21.9 GASTRO-ESOPHAGEAL REFLUX DISEASE WITHOUT ESOPHAGITIS 09/30/2017 ZAK HIGGINBOTHAM W R63.4 ABNORMAL WEIGHT LOSS 01/21/2018 Zachariah Hollingsworth W 296.64 BIPOLAR I DISORDER, MOST RECENT EPISODE (OR CURRENT) MIXED, SEVERE, SPECIFIED WITH PSYCHOTIC BEHAVIOR 01/21/2018 Zachariah Hollingsworth W F31.64 BIPOLAR DISORD, CRNT EPISODE MIXED, SEVERE, W PSYCH FEATURES Procedures There is no data. Results There is no data. Encounters ACCT No. Visit Date/Time Discharge Status Pt. Type Provider Facility Loc./Unit Complaint [id number] 05/26/2017 15:36:20 05/26/2017 23:59:59 [facility] Outpatient Shaun De Leon [id number] 05/22/2017 10:36:35 05/22/2017 23:59:59 [facility] Outpatient Shaun De Leon [id number] 05/22/2017 11:15:00 Document Registration [id number] 10/02/2017 09:00:00 01/21/2018 09:00:00 DIS Outpatient Zachariah Hollingsworth [id number] 09/21/2017 11:05:00 09/30/2017 09:00:00 DIS Inpatient ZAK HIGGINBOTHAM [facility] SHARIF [id number] 09/21/2017 11:27:37 Document Registration
--- OUTSIDE RECORDS SUMMARY | 2018-07-12 11:50 | XMS REPORT ---
Author Author Shaun De Leon [facility] Address [address] [place], [place] [id number] Care Team Providers Care Camp Counselor Name Role Phone Moises Shaun PCP Allergies and Adverse Reactions Name Reaction Notes No known allergies Plan of Treatment Planned Activity Comments Planned Date Planned Time Plan/Goal URINALYSIS W/MICRO C&S IF IND 05/22/2017 12:00 AM CBC W/ AUTO DIFF (RFLX MAN DIFF IF IND). 05/22/2017 12:00 AM BMP 05/22/2017 12:00 AM Medications Active Name Start Date Estimated Completion [...] by oral route 2 times per day Problem List Not available. Vital Signs Date [...] 10:01 AM URINALYSIS AUTO W/O SCOPE Reviewed Results Summary Date and Description Results 05/22/2017 10:01 AM Clarity Ur -- Urine-Color yellow Glucose Ur-sCnc neg Bilirub Ur Ql moderate Ketones Ur Ql Strip 15 Sp Gr Ur Qn >=1.030 Hgb Ur Ql Strip neg pH Ur-LsCnc 5.0 Prot Ur Ql Strip 30 Urobilinogen Ur-mCnc 1.0 Nitrite Ur Ql Strip neg WBC # Ur small History Of Immunizations Not available. History of Past Illness Name Date of Onset Comments Hypertension Anxiety Depression Dizziness UTI (urinary tract infection) Dysuria May 22 2017 9:59AM Urinary Tract Infection May 22 2017 9:59AM Payers Insurance Name Company Name Plan Name Plan Number Policy Number Policy Group Number Start Date Medicare Part B Medicare Of [place] [id number] N/A A[employer] [id number] N/A History of Encounters Visit Date Visit Type Provider 05/22/2017 Office visit Shaun De Leon MD
[2018-07-12 12:00] LABS: BACTERIA,URINE NEGATIVE /HPF; CALCIUM OXALATE CRYSTALS,UR MODERATE /LPF; RBC,URINE 0-2 /HPF
[2018-07-12] MEDS ORDERED: LEVO112T2 PO (12:01)
[2018-07-12] MEDS ORDERED: FLOVENT (12:01)
[2018-07-12 12:05] VITALS: BP_SYST 120; BP_SYST 124; BP_SYST 140; BP_DIAS 75; BP_DIAS 86; BP_DIAS 94
[2018-07-12] MEDS ORDERED: NYST15PO4 TP (12:07)
[2018-07-12] MEDS ORDERED: CEFU250T80 PO (12:07)
[2018-07-12 12:22] VITALS: BP 120/94
== END 2018-07-12 12:22 | disposition home or self-care (01) ==
LOC: EDUNIT# 09:13 → ER 09:14
DX: I95.1 Orthostatic hypotension (principal); B35.4 Tinea corporis; E03.9 Hypothyroidism, unspecified; G20 Parkinson's disease; E78.00 Pure hypercholesterolemia, unspecified; I10 Essential (primary) hypertension; K58.9 Irritable bowel syndrome, unspecified; K21.9 Gastro-esophageal reflux disease without esophagitis; F41.9 Anxiety disorder, unspecified; F32.9 Major depressive disorder, single episode, unspecified; Z82.49 Family history of ischemic heart disease and other diseases of the circulatory system; Z80.0 Family history of malignant neoplasm of digestive organs; Z87.19 Personal history of other diseases of the digestive system; Z98.890 Other specified postprocedural states; Z87.440 Personal history of urinary (tract) infections
CPT/HCPCS: 36415; 71046; 80053; 81000; 83735; 83874; 84439; 84443; 84484; 85025; 85610; 85730; 86141; 87088; 87210; 93005; 93041

== ENCOUNTER 2019-08-15 17:17 | Observation (INO) | payer MEDICARE ==
[~2019-08-15] VITALS: Ht 157.5 cm; Wt 60.6 kg
[~2019-08-15 17:17] MED LIST changes: +CEFU250T80 PO; +FLOVENT; +LEVO112T2 PO; +NYST15PO4 TP; +SIMV40TA25 PO; -SIMV40TA4 PO
--- NOTE | 2019-08-15 17:27 | ED General ---
General Stated Complaint: FALL Source of Information: Patient, EMS, Family Exam Limitations: No Limitations History of Present Illness Date Seen by Provider: Aug 15, 2019 Time Seen by Provider: 17:25 Initial Comments To ER with reports of a fall last night. Landed on her buttocks/left hip. Has a little bit of pain when she lays on her left hip. She states that she is overall very weak. She reports palpitations intermittently a couple of times a day and during these episodes she feels very anxious. She also reports some depression, family has noticed a decline in self care and hygiene. History of Parkinson's disease and bipolar disorder. Not taking her medications. Still lives at home. Timing/Duration: Getting Worse, Intermittent Severity: Moderate Associated Systoms: Denies Symptoms Allergies and Home Medications Allergies Coded Allergies: No Known Drug Allergies (Unverified , 02/19/17) Home Medications Alprazolam 0.25 Mg Tablet, 0.25 MG PO TID PRN for ANXIETY, (Reported) Amlodipine Besylate 5 Mg Tablet, 5 MG PO DAILY, (Reported) Cefuroxime Axetil 250 Mg Tablet, 250 MG PO BID Prescribed by: SPENSER ALBERT on 07/12/18 120 Citalopram Hydrobromide 40 Mg Tablet, 40 MG PO HS, (Reported) Fexofenadine HCl 60 Mg Tablet, 60 MG PO BID PRN for CONGESTION, (Reported) Hydrocodone Bit/Acetaminophen 1 Each Tablet, 1 TAB PO Q6H PRN Prescribed by: ALEXSANDER BARRERA on 02/19/17 193 Levothyroxine Sodium 75 Mcg Tablet, 75 MCG PO DAILY, (Reported) Nystatin 15 Gm Powder, 15 GM TP TID Prescribed by: SPENSER ALBERT on 07/12/181206 Simvastatin 40 Mg Tablet, 40 MG PO DAILY, (Reported) Sucralfate 1 Gm Tablet, 1 GM PO QID PRN for HEARTBURN, (Reported) Patient Home Medication List Home Medication List Reviewed: Yes Review of Systems Review of Systems Constitutional: see HPI, malaise, weakness EENTM: see HPI Respiratory: no symptoms reported Cardiovascular: no symptoms reported Genitourinary: no symptoms reported Musculoskeletal: see HPI Skin: no symptoms reported Hematologic/Lymphatic: No Symptoms Reported Past Dwaeepo-Eardgt-Iudjea Hx Patient Social History Recent Hopitalizations: No Immunizations Up To Date Tetanus Booster (TDap): Less than 5yrs PED Vaccines UTD: No Date of Pneumonia Vaccine: Dec 04, 2013 Date of Influenza Vaccine: Feb 20, 2017 Seasonal Allergies Seasonal Allergies: Yes Past Medical History Surgeries: Yes (D&C, LT FOOT HAMMERTOE) Gallbladder, Orthopedic Respiratory: No Currently Using CPAP: No Currently Using BIPAP: No Cardiac: Yes High Cholesterol, Hypertension Neurological: No Reproductive Disorders: No Female Reproductive Disorders: Denies Sexually Transmitted Disease: No HIV/AIDS: No Genitourinary: Yes Kidney Infection, UTI-Chronic Gastrointestinal: Yes Gastroesophageal Reflux, Hiatal Hernia, Irritable Bowel Musculoskeletal: Yes Arthritis Endocrine: Yes Hypothyroidsim HEENT: No Loss of Vision: Bilateral Hearing Impairment: Denies Cancer: No Psychosocial: Yes Anxiety, Depression Integumentary: No Blood Disorders: No Adverse Reaction/Blood Tranf: No (N/A) Family Medical History Arthritis Cardiovascular disease Cataracts Colon cancer Diabetes mellitus Hypertension Myocardial infarction Parkinson's disease Psychosocial problem Respiratory disorder Thyroid disease Visual disorder Cancer, CAD Under 55 Years Old, Diabetes Physical Exam Vital Signs Vital Signs - First Documented 08/15/19 17:32 Temp 36.9 Pulse 69 Resp 18 B/P (MAP) 112/77 (89) O2 Delivery Room Air Capillary Refill : Height, Weight, BMI Height: 5'2.00" Weight: 150lbs. 0.0oz. 68.140118aw; 36.6 BMI Method:Stated General Appearance: No Apparent Distress, WD/WN, Other (flat affect) Eyes: Bilateral Eye Normal Inspection, Bilateral Eye PERRL, Bilateral Eye EOMI Neck: Full Range of Motion, Normal Inspection Respiratory: Chest Non Tender, Lungs Clear Cardiovascular: Regular Rate, Rhythm, Normal Peripheral Pulses Gastrointestinal: Normal Bowel Sounds, Non Tender, Soft Extremity: Normal Capillary Refill, Normal Inspection Neurologic/Psychiatric: Alert, Depressed Affect Skin: Normal Color, Warm/Dry Progress/Results/Core Measures Suspected Sepsis SIRS Temperature: Pulse: Respiratory Rate: Laboratory Tests 08/15/19 17:28: White Blood Count 4.5 Blood Pressure / Mean: Laboratory Tests 08/15/19 17:28: Creatinine 0.79, INR Comment 0.9, Platelet Count 239, Total Bilirubin 0.4 Results/Orders Lab Results Laboratory Tests Test 08/15/19 17:28 08/15/19 19:00 Range/Units White Blood Count 4.5 4.3-11.0 10^3/uL Red Blood Count 4.93 4.35-5.85 10^6/uL Hemoglobin 15.6 11.5-16.0 G/DL Hematocrit 46 35-52 % Mean Corpuscular Volume 94 80-99 FL Mean Corpuscular Hemoglobin 32 25-34 PG Mean Corpuscular Hemoglobin Concent 34 32-36 G/DL Red Cell Distribution Width 13.7 10.0-14.5 % Platelet Count 239 130-400 10^3/uL Mean Platelet Volume 9.2 7.4-10.4 FL Neutrophils (%) (Auto) 36 L 42-75 % Lymphocytes (%) (Auto) 48 H 12-44 % Monocytes (%) (Auto) 13 H 0-12 % Eosinophils (%) (Auto) 2 0-10 % Basophils (%) (Auto) 1 0-10 % Neutrophils # (Auto) 1.6 L 1.8-7.8 X 10^3 Lymphocytes # (Auto) 2.2 1.0-4.0 X 10^3 Monocytes # (Auto) 0.6 0.0-1.0 X 10^3 Eosinophils # (Auto) 0.1 0.0-0.3 10^3/uL Basophils # (Auto) 0.0 0.0-0.1 10^3/uL Prothrombin Time 12.1 L 12.2-14.7 SEC INR Comment 0.9 0.8-1.4 Sodium Level 145 135-145 MMOL/L Potassium Level 3.8 3.6-5.0 MMOL/L Chloride Level 109 H 98-107 MMOL/L Carbon Dioxide Level 27 21-32 MMOL/L Anion Gap 9 5-14 MMOL/L Blood Urea Nitrogen 16 7-18 MG/DL Creatinine 0.79 0.60-1.30 MG/DL Estimat Glomerular Filtration Rate > 60 BUN/Creatinine Ratio 20 Glucose Level 93 70-105 MG/DL Calcium Level 8.9 8.5-10.1 MG/DL Corrected Calcium 9.1 8.5-10.1 MG/DL Magnesium Level 2.3 1.6-2.4 MG/DL Total Bilirubin 0.4 0.1-1.0 MG/DL Aspartate Amino Transf (AST/SGOT) 21 5-34 U/L Alanine Aminotransferase (ALT/SGPT) 20 0-55 U/L Alkaline Phosphatase 70 40-136 U/L Total Protein 6.6 6.4-8.2 GM/DL Albumin 3.8 3.2-4.5 GM/DL Thyroid Stimulating Hormone (TSH) 21.92 H 0.35-4.94 UIU/ML Free Thyroxine 0.80 0.70-1.48 NG/DL Urine Color YELLOW Urine Clarity CLEAR Urine pH 5.5 5-9 Urine Specific [place] >=1.030 1.016-1.022 Urine Protein TRACE H NEGATIVE Urine Glucose (UA) NEGATIVE NEGATIVE Urine Ketones NEGATIVE NEGATIVE Urine Nitrite NEGATIVE NEGATIVE Urine Bilirubin NEGATIVE NEGATIVE Urine Urobilinogen 0.2 < = 1.0 MG/DL Urine Leukocyte Esterase 1+ H NEGATIVE Urine RBC (Auto) NEGATIVE NEGATIVE Urine RBC NONE /HPF Urine WBC 5-10 H /HPF Urine Squamous Epithelial Cells 0-2 /HPF Urine Crystals PRESENT H /LPF Urine Calcium Oxalate Crystals FEW H /LPF Urine Bacteria FEW H /HPF Urine Casts NONE /LPF Urine Mucus MODERATE H /LPF Urine Culture Indicated YES My Orders Orders - SPENSER ALBERT APRN Ct Head Wo (08/15/19 17:24) Pelvis (08/15/19 17:24) Cbc With Automated Diff (08/15/19 17:24) Protime With Inr (08/15/19 17:24) Comprehensive Metabolic Panel (08/15/19 17:24) Ua Culture If Indicated (08/15/19 17:24) Ed Iv/Invasive Line Start (08/15/19 17:24) Ekg Tracing (08/15/19 17:24) Magnesium (08/15/19 17:24) Thyroid Stimulating Hormone (08/15/19 17:24) Free T4 (Free Thyroxine) (08/15/19 17:24) Lactated Ringers (Lr 1000 Ml Iv Solution (08/15/19 18:30) Triiodothryonine T3 Free (08/15/19 18:33) Prealbumin (08/15/19 18:38) Ct Lumbar Spine Wo (08/15/19 18:38) Urine Culture (08/15/19 19:00) Vital Signs/I&O 08/15/19 17:32 Temp 36.9 Pulse 69 Resp 18 B/P (MAP) 112/77 (89) O2 Delivery Room Air Capillary Refill : Diagnostic Imaging Diagonstic Imaging: CT Comments NAME: LUNA COLLAZO [facility] REC#: [id number] PT STATUS: ADM Tj : 1945 PHYSICIAN: SPENSER ALBERT APRN ADMIT DATE: 08/15/19/ Signed Date of Exam:08/15/19 CT LUMBAR SPINE WO PROCEDURE: CT lumbar spine without contrast. TECHNIQUE: Multiple contiguous axial images were obtained through the lumbar spine without the use of intravenous contrast. Sagittal and coronal reformations were then performed. Auto Exposure Controls were utilized during the CT exam to meet ALARA standards for radiation dose reduction. INDICATION: Fall, back pain. COMPARISON: None. FINDINGS: Mild lumbar scoliosis is present with advanced degenerative disc disease and facet degenerative arthropathy. There is no traumatic malalignment or fracture. There is no paraspinous mass. No osseous lesion is seen. SI joints are symmetric. IMPRESSION: 1. Lumbar scoliosis with degenerative disc disease and facet joint arthropathy. 2. No traumatic malalignment or fracture. Dictated by: Dictated on workstation # [id number] Dict: 08/15/191911 Trans: 08/15/191919 [facility] [id number] Interpreted by: KASHMIR LEWIS Electronically signed by: KASHMIR LEWIS 08/15/191919 Departure Communication (Admissions) Discussed with patient the need to go for inpatient mental health treatment at [facility]. She is reluctant to accept this idea of first but after discussion with Dr. Puentes over the phone, she is more accepting of this idea and agrees to consider going over there tomorrow after staying here in the hospital overnight. Impression Primary Impression: General weakness Additional Impression: Depression Disposition: ADMITTED INPATIENT Condition: Stable Admissions Decision to Admit Reason: Admit from ER (General) Decision to Admit/Date: Aug 15, 2019 Time/Decision to Admit Time: 18:42 Departure-Patient Inst. Referrals: MIAH EATON MD (PCP/Family) Primary Care Physician SPENSER ALBERT APRN Aug 15, 2019 17:27
[2019-08-15 17:49] LABS: BASOPHILS % (AUTO) 1 % (0-10); EOSINOPHILS # (AUTO) 0.1 10^3/uL (0.0-0.3); EOSINOPHILS % (AUTO) 2 % (0-10); HEMATOCRIT 46 % (35-52); HEMOGLOBIN 15.6 G/DL (11.5-16.0); LYMPHOCYTES # (AUTO) 2.2 X 10^3 (1.0-4.0); LYMPHOCYTES % (AUTO) 48 % (12-44); MEAN CORPUSCULAR HEMOGLOBIN 32 PG (25-34); MEAN CORPUSCULAR HGB CONC 34 G/DL (32-36); MEAN CORPUSCULAR VOLUME 94 FL (80-99); MEAN PLATELET VOLUME 9.2 FL (7.4-10.4); MONOCYTES # (AUTO) 0.6 X 10^3 (0.0-1.0); MONOCYTES % (AUTO) 13 % (0-12); NEUTROPHILS # (AUTO) 1.6 X 10^3 (1.8-7.8); NEUTROPHILS % (AUTO) 36 % (42-75); PLATELET COUNT 239 10^3/uL (130-400); RED CELL DISTRIBUTION WIDTH 13.7 % (10.0-14.5); WHITE BLOOD COUNT 4.5 10^3/uL (4.3-11.0)
[2019-08-15 17:54] LABS: ALBUMIN 3.8 GM/DL (3.2-4.5); CHLORIDE 109 MMOL/L (98-107); INR 0.9 (0.8-1.4); POTASSIUM 3.8 MMOL/L (3.6-5.0); PROTHROMBIN TIME PATIENT 12.1 SEC (12.2-14.7); SODIUM 145 MMOL/L (135-145)
[2019-08-15 17:55] LABS: CALCIUM 8.9 MG/DL (8.5-10.1)
[2019-08-15 17:56] LABS: GLUCOSE 93 MG/DL (70-105)
[2019-08-15 17:57] LABS: TOTAL PROTEIN 6.6 GM/DL (6.4-8.2)
[2019-08-15 17:58] LABS: BILIRUBIN,TOTAL 0.4 MG/DL (0.1-1.0); CARBON DIOXIDE 27 MMOL/L (21-32)
[2019-08-15 18:00] LABS: ALKALINE PHOSPHATASE 70 U/L (40-136); CREATININE SERUM 0.79 MG/DL (0.60-1.30); GFR ESTIMATED > 60
[2019-08-15 18:01] LABS: BUN/CREATININE RATIO 20
[2019-08-15 18:03] LABS: ALANINE AMINOTRANSFERASE 20 U/L (0-55); MAGNESIUM 2.3 MG/DL (1.6-2.4)
--- NOTE | 2019-08-15 18:06 | Diagnostic Imaging Report ---
INDICATION: Fall, pelvic pain. COMPARISON: None. FINDINGS: Single view of the pelvis demonstrates no fracture or dislocation. Articular surfaces are age appropriate. The SI joints are symmetric. Moderate constipation noted. IMPRESSION: No fracture or dislocation. Dictated by: Dictated on workstation # [id number]
--- NOTE | 2019-08-15 18:06 | Diagnostic Imaging Report ---
PROCEDURE: CT head without contrast. TECHNIQUE: Multiple contiguous axial images were obtained through the brain without the use of intravenous contrast. Auto Exposure Controls were utilized during the CT exam to meet ALARA standards for radiation dose reduction. INDICATION: Fall, head injury. COMPARISON: None. FINDINGS: Ventricles are normal in size, shape, and position. There is some mild cerebral volume loss. There is no focus of acute ischemia or hemorrhage. No extra-axial fluid collection or mass is identified. There is no skull fracture. The visualized paranasal sinuses and mastoids are unremarkable. IMPRESSION: 1. Age-related cerebral volume loss. 2. No focus of acute ischemia, hemorrhage, or mass. Please note, the study is limited due to lack of imaging of the entire skull base. Dictated by: Dictated on workstation # [id number]
[2019-08-15] MEDS ORDERED: LACTATED RINGERS 1,000 ML IV SCH (18:30)
[2019-08-15 19:08] LABS: BILIRUBIN,URINE NEGATIVE (NEGATIVE); CLARITY,URINE CLEAR; COLOR,URINE YELLOW; GLUCOSE, URINE (UA) NEGATIVE (NEGATIVE); KETONES,URINE NEGATIVE (NEGATIVE); LEUKOCYTE ESTERASE ,URINE 1+ (NEGATIVE); NITRITE,URINE NEGATIVE (NEGATIVE); PH,URINE 5.5 (5-9); PROTEIN,URINE TRACE (NEGATIVE)
[2019-08-15 19:14] LABS: BACTERIA,URINE FEW /HPF; CALCIUM OXALATE CRYSTALS,UR FEW /LPF; SQUAMOUS EPITHELIAL CELL,UR 0-2 /HPF
--- NOTE | 2019-08-15 19:14 | NUR ---
1ST ATTEMPT TO CALL REPORT. RN TO RETURN CALL.
--- NOTE | 2019-08-15 19:16 | Diagnostic Imaging Report ---
PROCEDURE: CT lumbar spine without contrast. TECHNIQUE: Multiple contiguous axial images were obtained through the lumbar spine without the use of intravenous contrast. Sagittal and coronal reformations were then performed. Auto Exposure Controls were utilized during the CT exam to meet ALARA standards for radiation dose reduction. INDICATION: Fall, back pain. COMPARISON: None. FINDINGS: Mild lumbar scoliosis is present with advanced degenerative disc disease and facet degenerative arthropathy. There is no traumatic malalignment or fracture. There is no paraspinous mass. No osseous lesion is seen. SI joints are symmetric. IMPRESSION: 1. Lumbar scoliosis with degenerative disc disease and facet joint arthropathy. 2. No traumatic malalignment or fracture. Dictated by: Dictated on workstation # [id number]
--- NOTE | 2019-08-15 19:30 | NUR ---
LUNA COLLAZO admitted to room 411-1, with an admitting diagnosis of Weakness, on 08/15/19 from ED via , accompanied by ED STAFF. LUNA COLLAZO introduced to surroundings, call light, bed controls, phone, TV, temperature control, lights, meal times, smoking policy, visitor policy, side rail policy, bathrooms and showers. Patient Rights given to patient in the handbook. LUNA COLLAZO verbalizes understanding that [facility] is not responsible for the loss or damage to any personal effects or valuables that are kept in the patients posession during their hospitalization. LUNA COLLAZO verbalizes understanding of Interdisciplinary Patient Education. Patient and/or family were informed about the Rapid Response Team and its purpose.
[2019-08-15 19:45] VITALS: BP 150/70
--- OUTSIDE RECORDS SUMMARY | 2019-08-15 19:53 | XMS REPORT | Continuity of Care Document ---
Demographics Preferred Language Unknown Marital Status Unknown Rastafarian Affiliation Unknown Race Unknown Ethnic Group Unknown Author Organization Unknown Address Unknown Phone Unavailable Allergies Active Description Code Type Severity Reaction Onset Reported/Identified Relationship to Patient Clinical Status Yes NO KNOWN DRUG ALLERGIES UNKNOWN NO KNOWN DRUG ALLERG Yes No Known Drug Allergies [id number] Drug Allergy Unknown N/A 02/19/2017 Medications Medication Packaging Start Date St op Date Route Dosage Sig SUCRALFATE TAB 1 GM (CARAFATE) GM 09/21/2017 10/21/2017 [id number]&[id number],1130,1630,2100 ACETAMINOPHEN ORAL TABLET 325mg(Tylenol) MG 09/21/2017 10/21/2017 PRN EVERY 6 Hour LOPERAMIDE CAP 2 MG (IMMODIUM) MG 09/21/2017 10/21/2017 PRN QID POLYETHYLENE GLYCOL POWDER U D PWD (MIRALAX 17GM UNIT DOSE PAKS) gm [...] 09/22/2017 10/21/2017 QAM&0800 MultiVits (Thera M Plus) (mu qsaclr-kkkd-cmpnvrg) oral tablet TAB 09/22/2017 10/21/2017 QAM&0800 CALCIUM 600MG W VIT D TAB 60 0 MG (OSCAL/W VIT D) MG 09/22/2017 10/21/2017 QAM&0800 ALPHA TOCOPHERYL CAP 400 IU (VIT E) IU 09/22/2017 10/21/2017 QAM&0800 VITAMIN B COMPLEX TAB (B COMPLEX) cap 09/22/2017 10/21/2017 QAM&0800 LEVOTHYROXINE TAB 112 MCG (SYNTHROID) MCG 09/22/2017 10/21/2017 QAM&0800 ASPIRIN ENTERIC COATED TAB 8 1 MG (BABY ASPIRIN EC) MG 09/22/2017 10/21/2017 [...] MG 09/24/2017 10/23/2017 QHS&2100 OLANZAPINE DISSOLVABLE TAB 1 0 MG (ZYPREXA ZYDIS) MG 09/24/2017 10/23/2017 QHS&2100 Problems Date Dx Coded Attending Type Code Diagnosis Diagnosed By 12/07/2015 MARJAN JEFFREY DPM, Ot M20.42 OTHER HAMMER TOE(S) (ACQUIRED), LEFT ANJANA 12/07/2015 MARJAN JEFFREY DPM, Ot 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, LEFT FOOT 12/10/2015 JEFFREY DPM, MARJAN P Ot M20.42 OTHER HAMMER TOE(S) (ACQUIRED), LEFT ANJANA 12/10/2015 JEFFREY DPM, MARJAN P Ot 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, LEFT FOOT 12/12/2015 JEFFREY DPM, MARJAN P Ot M20.42 OTHER HAMMER TOE(S) (ACQUIRED), LEFT ANJANA 12/12/2015 JEFFREY DPM, MARJAN P Ot 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, LEFT FOOT 02/20/2017 ALEXSANDER BARRERA DO B Ot E03.9 HYPOTHYROIDISM, UNSPECIFIED 02/20/2017 DANNY BARRERA DOIC B Ot E66.9 OBESITY, UNSPECIFIED 02/20/2017 DANNY BARRERA DOIC B Ot E78.0 0 PURE HYPERCHOLESTEROLEMIA, UNSPECIFIED 02/20/2017 DANNY BARRERA DOIC B Ot F41.9 ANXIETY DISORDER, UNSPECIFIED 02/20/2017 DANNY BARRERA DOIC B Ot I10 ESSENTIAL (PRIMARY) HYPERTENSION 02/20/2017 DANNY BARRERA DOIC B Ot K21.9 GASTRO-ESOPHAGEAL REFLUX DISEASE WITHOUT 02/20/2017 DANNY BARRERA DOIC B Ot K44.9 DIAPHRAGMATIC HERNIA WITHOUT OBSTRUCTION 02/20/2017 DANNY BARRERA DOIC B Ot K80.1 2 CALCULUS OF GB W ACUTE AND 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 02/20/2017 ALEXSANDER BARRERA DO B Ot R82.9 9 OTHER ABNORMAL FINDINGS IN URINE 02/20/2017 DANNY BARRERA DOIC B Ot Z23 ENCOUNTER FOR IMMUNIZATION 02/20/2017 ALEXSANDER BARRERA DO B Ot Z68.3 6 BODY MASS INDEX (BMI) 36.0-36.9, ADULT 02/20/2017 ALEXSANDER BARRERA DO B Ot Z79.8 99 OTHER PLANT MACHINIST (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 THERAPY 02/20/2017 DANNY BARRERA DOIC B Ot Z87.4 40 PERSONAL HISTORY OF URINARY (TRACT) INFE 02/24/2017 DANNY BARRERA DOIC B Ot E03.9 HYPOTHYROIDISM, UNSPECIFIED 02/24/2017 HOLLY FRAZIER ALEXSANDER B Ot E66.9 OBESITY, UNSPECIFIED 02/24/2017 DANNY BARRERA DOIC B Ot E78.0 0 PURE HYPERCHOLESTEROLEMIA, UNSPECIFIED 02/24/2017 DANNY BARRERA DOIC B Ot F41.9 ANXIETY DISORDER, UNSPECIFIED 02/24/2017 HOLLY DO, ALEXSANDER B Ot I10 ESSENTIAL (PRIMARY) HYPERTENSION 02/24/2017 HOLLY DO, ALEXSANDER B Ot K21.9 GASTRO-ESOPHAGEAL REFLUX DISEASE WITHOUT 02/24/2017 DELMAN DO, ALEXSANDER B Ot K44.9 DIAPHRAGMATIC HERNIA WITHOUT OBSTRUCTION 02/24/2017 HOLLY DO, ALEXSANDER B Ot K80.1 2 CALCULUS OF GB W ACUTE AND 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 02/24/2017 HOLLY DO, ALEXSANDER B Ot R82.9 9 OTHER ABNORMAL FINDINGS IN URINE 02/24/2017 HOLLY DO, ALEXSANDER B Ot Z68.3 6 BODY MASS INDEX (BMI) 36.0-36.9, ADULT 02/24/2017 HOLLY DO, ALEXSANDER B Ot Z79.8 99 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 PLANT MACHINIST (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 02/24/2017 HOLLY DO, ALEXSANDER B Ot Z87.4 40 PERSONAL HISTORY OF URINARY (TRACT) INFE 02/25/2017 LAURITAJOSE FRAZIER, ALEXSANDER B Ot E03.9 HYPOTHYROIDISM, UNSPECIFIED 02/25/2017 HOLLY DO, ALEXSANDER B Ot E66.9 OBESITY, UNSPECIFIED 02/25/2017 HOLLY DO, ALEXSANDER B Ot E78.0 0 PURE HYPERCHOLESTEROLEMIA, UNSPECIFIED 02/25/2017 HOLLY DO, ALEXSANDER B Ot F41.9 ANXIETY DISORDER, UNSPECIFIED 02/25/2017 HOLLY DO, ALEXSANDER B Ot I10 ESSENTIAL (PRIMARY) HYPERTENSION 02/25/2017 HOLLY DO, ALEXSANDER B Ot K21.9 GASTRO-ESOPHAGEAL REFLUX DISEASE WITHOUT 02/25/2017 HOLLY DO, ALEXSANDER B Ot K44.9 DIAPHRAGMATIC HERNIA WITHOUT OBSTRUCTION 02/25/2017 HOLLY FRAZIER, ALEXSANDER B Ot K80.1 2 CALCULUS OF GB W ACUTE AND 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 02/25/2017 HOLLY DO, ALEXSANDER B Ot R82.9 9 OTHER ABNORMAL FINDINGS IN URINE 02/25/2017 HOLLY DO, ALEXSANDER B Ot Z68.3 6 BODY MASS INDEX (BMI) 36.0-36.9, ADULT 02/25/2017 HOLLY DO, ALEXSANDER B Ot Z79.8 99 OTHER PLANT MACHINIST (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 THERAPY 02/25/2017 HOLLY DO, ALEXSANDER B Ot Z87.4 40 PERSONAL HISTORY OF URINARY (TRACT) INFE 02/26/2017 HOLLY DO, ALEXSANDER B Ot E03.9 HYPOTHYROIDISM, UNSPECIFIED 02/26/2017 HOLLY DO, ALEXSANDER B Ot E66.9 OBESITY, UNSPECIFIED 02/26/2017 HOLLY DO, ALEXSANDER B Ot E78.0 0 PURE HYPERCHOLESTEROLEMIA, UNSPECIFIED 02/26/2017 HOLLY DO, ALEXSANDER B Ot F41.9 ANXIETY DISORDER, UNSPECIFIED 02/26/2017 HOLLY DO, ALEXSANDER B Ot I10 ESSENTIAL (PRIMARY) HYPERTENSION 02/26/2017 HOLLY DO, ALEXSANDER B Ot K21.9 GASTRO-ESOPHAGEAL REFLUX DISEASE WITHOUT 02/26/2017 HOLLY DO, ALEXSANDER B Ot K44.9 DIAPHRAGMATIC HERNIA WITHOUT OBSTRUCTION 02/26/2017 LAURITAJOSE FRAZIER, ALEXSANDER B Ot K80.1 2 CALCULUS OF GB W ACUTE AND 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 02/26/2017 LAURITAJOSE DO ALEXSANDER B Ot R82.9 9 OTHER ABNORMAL FINDINGS IN URINE 02/26/2017 LAURITAJOSE DO ALEXSANDER B Ot Z68.3 6 BODY MASS INDEX (BMI) 36.0-36.9, ADULT 02/26/2017 LAURITAJOSE DO ALEXSANDER B Ot Z79.8 99 OTHER CUSTODIAL (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 THERAPY 02/26/2017 LAURITAJOSE FRAZIER ALEXSANDER B Ot Z87.4 40 PERSONAL HISTORY OF URINARY (TRACT) INFE 03/10/2017 LAURITAJOSE , ALEXSANDER B Ot E03.9 HYPOTHYROIDISM, UNSPECIFIED 03/10/2017 HOLLY FRAZIER, ALEXSANDER B Ot E66.9 OBESITY, UNSPECIFIED 03/10/2017 HOLLY FRAIZER, ALEXSANDER B Ot E78.0 0 PURE HYPERCHOLESTEROLEMIA, UNSPECIFIED 03/10/2017 LAURITAJOSE , ALEXSANDER B Ot F41.9 ANXIETY DISORDER, UNSPECIFIED 03/10/2017 HOLLY FRAZIER, ALEXSANDER B Ot I10 ESSENTIAL (PRIMARY) HYPERTENSION 03/10/2017 LAURITAJOSE FRAZIER, ALEXSANDER B Ot K21.9 GASTRO-ESOPHAGEAL REFLUX DISEASE WITHOUT 03/10/2017 LAURITAJOSE FRAZIER, ALEXSANDER B Ot K44.9 DIAPHRAGMATIC HERNIA WITHOUT OBSTRUCTION 03/10/2017 LAURITAJOSE , ALEXSANDER B Ot K80.1 2 CALCULUS OF GB W ACUTE AND 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 03/10/2017 LAURITAJOSE , ALEXSANDER B Ot R82.9 9 OTHER ABNORMAL FINDINGS IN URINE 03/10/2017 HOLLY FRAZIER ALEXSANDER B Ot Z23 ENCOUNTER FOR IMMUNIZATION 03/10/2017 ALEXSANDER BARRERA DO Ot Z68.3 6 BODY MASS INDEX (BMI) 36.0-36.9, ADULT 03/10/2017 ALEXSANDER BARRERA DO Ot Z79.8 99 OTHER CUSTODIAL (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 THERAPY 03/10/2017 DANNY BARRERA DOIC Brayden Ot Z87.4 40 PERSONAL HISTORY OF URINARY (TRACT) INFE 03/13/2017 MITRA GREENE MD Ot E03 .9 HYPOTHYROIDISM, UNSPECIFIED 03/13/2017 MITRA GREENE MD Ot E78.00 PURE HYPERCHOLESTEROLEMIA, UNSPECIFIED 03/13/2017 MITRA GREENE MD Ot F32 .9 MAJOR DEPRESSIVE DISORDER, SINGLE EPISOD 03/13/2017 MITRA GREENE MD, Ot F41 .9 ANXIETY DISORDER, UNSPECIFIED 03/13/2017 MITRA GREENE MD Ot I10 ESSENTIAL (PRIMARY) HYPERTENSION 03/13/2017 MITRA GREENE MD Ot I95 .1 ORTHOSTATIC HYPOTENSION 03/13/2017 MITRA GREENE MD, Ot K21 .9 GASTRO-ESOPHAGEAL REFLUX DISEASE WITHOUT 03/13/2017 MITRA GREENE MD Ot N39 .0 URINARY TRACT INFECTION, SITE NOT SPECIF 03/13/2017 MITRA GREENE MD Ot R42 DIZZINESS AND GIDDINESS 03/13/2017 MITRA GREENE MD Ot Z87.19 PERSONAL HISTORY OF OTHER DISEASES OF TH 03/13/2017 MITRA GREENE MD Ot Z90.49 ACQUIRED ABSENCE OF OTHER SPECIFIED PART 03/16/2017 MITRA GREENE MD Ot E03 .9 HYPOTHYROIDISM, UNSPECIFIED 03/16/2017 MITRA GREENE MD Ot E78.00 PURE HYPERCHOLESTEROLEMIA, UNSPECIFIED 03/16/2017 MITRA GREENE MD Ot F32 .9 MAJOR DEPRESSIVE DISORDER, SINGLE EPISOD 03/16/2017 MITRA GREENE MD Ot F41 .9 ANXIETY DISORDER, UNSPECIFIED 03/16/2017 MITRA GREENE MD Ot I10 ESSENTIAL (PRIMARY) HYPERTENSION 03/16/2017 MITRA GREENE MD Ot I95 .1 ORTHOSTATIC HYPOTENSION 03/16/2017 MITRA GREENE MD Ot K21 .9 GASTRO-ESOPHAGEAL REFLUX DISEASE WITHOUT 03/16/2017 MITRA GREENE MD Ot N39 .0 URINARY TRACT INFECTION, SITE NOT SPECIF 03/16/2017 RAMONA MARINO, MITRA Butterfield Ot R42 DIZZINESS AND GIDDINESS 03/16/2017 RAMONA MARINO, MITRA Butterfield Ot Z87.19 PERSONAL HISTORY OF OTHER DISEASES OF TH 03/16/2017 RAMONA MARINO, MITRA Butterfield Ot Z90.49 ACQUIRED ABSENCE OF OTHER SPECIFIED PART 05/22/2017 P N390 Urina ry tract infection, site not specified 05/22/2017 S R300 Dysuria 09/21/2017 NEFTALY, ZAK W 311 DEPRESSIVE DISORDER, [...] 311 DEPRESSIVE DISORDER, NOT ELSEWHERE CLASSIFIED 09/30/2017 NEFTALY, ZAK W 401.9 UNSPECIFIED ESSENTIAL HYPERTENSION 09/30/2017 [...] ESSENTIAL (PRIMARY) HYPERTENSION 09/30/2017 NEFTALY, ZAK W K21.9 GASTRO-ESOPHAGEAL REFLUX DISEASE WITHOUT ESOPHAGITIS 09/30/2017 NEFTALY, ZAK W R63.4 ABNORMAL WEIGHT LOSS 01/21/2018 Ajitct, olga W 296.64 BIPOLAR I DISORDER, MOST RECENT EPISODE (OR CURRENT) MIXED, SEVERE, SPECIFIED WITH PSYCHOTIC BEHAVIOR 01/21/2018 Ajitct, olga W F31.64 BIPOLAR DISORD, CRNT EPISODE MIXED, SEVERE, W PSYCH FEATURES 07/12/2018 SPENSER ALBERT APRN Ot B35 .4 TINEA CORPORIS 07/12/2018 SPENSER ALBERT APRN Ot E03 .9 HYPOTHYROIDISM, UNSPECIFIED 07/12/2018 SPENSER ALBERT APRN Ot E78.00 PURE HYPERCHOLESTEROLEMIA, UNSPECIFIED 07/12/2018 SPENSER ALBERT APRN Ot F32 .9 MAJOR DEPRESSIVE DISORDER, SINGLE EPISOD 07/12/2018 SPENSER ALBERT APRN Ot F41 .9 ANXIETY DISORDER, UNSPECIFIED 07/12/2018 SPENSER ALBERT MANAGER OF MEDICAL Ot G20 PARKINSON'S DISEASE 07/12/2018 SPENSER ALBERT APRN Ot I10 ESSENTIAL (PRIMARY) HYPERTENSION 07/12/2018 SPENSER ALBERT APRN Ot I95 .1 ORTHOSTATIC HYPOTENSION 07/12/2018 SPENSER ALBERT APRN Ot K21 .9 GASTRO-ESOPHAGEAL REFLUX DISEASE WITHOUT 07/12/2018 SPENSER ALBERT APRN Ot K58 .9 IRRITABLE BOWEL SYNDROME WITHOUT DIARRHE 07/12/2018 SPENSER ALBERT APRN Ot R11 .2 NAUSEA WITH VOMITING, UNSPECIFIED 07/12/2018 SPENSER ALBERT MANAGER OF MEDICAL Ot Z80 .0 FAMILY HISTORY OF MALIGNANT NEOPLASM OF 07/12/2018 SPENSER ALBERT APRN Ot Z82.49 FAMILY HX OF ISCHEM HEART DIS AND OTH DI 07/12/2018 SPENSER ALBERT APRN Ot Z87.19 PERSONAL HISTORY OF OTHER DISEASES OF 07/12/2018 SPENSER ALBERT APRN Ot Z87.440 PERSONAL HISTORY OF URINARY (TRACT) INFE 07/12/2018 SPENSER ALBERT APRN Ot Z98.890 OTHER SPECIFIED POSTPROCEDURAL STATES 07/18/2018 SPENSER ALBERT APRN Ot B35 .4 TINEA CORPORIS 07/18/2018 SPENSER ALBERT APRN Ot E03 .9 HYPOTHYROIDISM, UNSPECIFIED 07/18/2018 SPENSER ALEBRT APRN Ot E78.00 PURE HYPERCHOLESTEROLEMIA, UNSPECIFIED 07/18/2018 SPENSER ALBERT APRN Ot F32 .9 MAJOR DEPRESSIVE DISORDER, SINGLE EPISOD 07/18/2018 SPENSER ALBERT APRN Ot F41 .9 ANXIETY DISORDER, UNSPECIFIED 07/18/2018 SPENSER ALBERT APRN Ot G20 PARKINSON'S DISEASE 07/18/2018 SPENSER ALBERT APRN Ot I10 ESSENTIAL (PRIMARY) HYPERTENSION 07/18/2018 SPENSER ALBERT APRN Ot I95 .1 ORTHOSTATIC HYPOTENSION 07/18/2018 SPENSER ALBERT APRN Ot K21 .9 GASTRO-ESOPHAGEAL REFLUX DISEASE WITHOUT 07/18/2018 SPENSER ALBERT APRN Ot K58 .9 IRRITABLE BOWEL SYNDROME WITHOUT DIARRHE 07/18/2018 SPENSER ALBERT APRN Ot R11 .2 NAUSEA WITH VOMITING, UNSPECIFIED 07/18/2018 SPENSER ABLERT APRN Ot Z80 .0 FAMILY HISTORY OF MALIGNANT NEOPLASM OF 07/18/2018 SPENSER ALBERT APRN Ot Z82.49 FAMILY HX OF ISCHEM HEART DIS AND OTH DI 07/18/2018 SPENSER ALBERT APRN Ot Z87.19 PERSONAL HISTORY OF OTHER DISEASES OF 07/18/2018 SPENSER ALBERT APRN Ot Z87.440 PERSONAL HISTORY OF URINARY (TRACT) INFE 07/18/2018 SPENSER ALBERT APRN Ot Z98.890 OTHER SPECIFIED POSTPROCEDURAL STATES Procedures There is no data. Results Test Result Range Methicillin resistant Staphylococcus aur eus (MRSA) screening culture - 12/05/15 14:00 Methicillin resistant Staphylococcus aureus (MRSA) scr eening culture NEG NRG Complete urinalysis with reflex to cultu re - 02/19/17 11:07 Urine color determination YELLOW NRG Urine clarity determination SLIGHTLY CLOUDY NRG Urine pH measurement by test strip 5 5-9 Specific gravity of urine by test strip 1.025 1.016-1.022 Urine protein assay by test strip, semi-quantitative 2+ NEGATIVE Urine glucose detection by automated test strip NE GATIVE NEGATIVE Erythrocytes detection in urine sediment by light micr oscopy 2+ NEGATIVE Urine ketones detection by automated test strip 2+ NEGATIVE Urine nitrite detection by test strip NEGATIVE NEGATIVE Urine total bilirubin detection by test strip 1+ NEGATIVE Urine urobilinogen measurement by automated test strip (mass/volume) 1 mg/dL NORMAL Urine leukocyte esterase detection by dipstick 3+ NEGATIVE Automated urine sediment erythrocyte cou nt by microscopy (number/high power field) RARE NRG Automated urine sediment leukocyte count by microscopy (number/high power field) [HPF] NRG Bacteria detection in urine sediment by light microsco py MODERATE NRG Squamous epithelial cells detection in u rine sediment by light microscopy 10-25 NRG Crystals detection in urine sediment by light microsco py NONE NRG Casts detection in urine sediment by light microscopy PRESENT NRG Mucus detection in urine sediment by light microscopy NEGATIVE NRG Complete urinalysis with reflex to culture YES NRG Granular casts detection in urine sediment by light mi croscopy 0-2 NRG Bacterial urine culture - 02/19/17 11:07 Bacterial urine culture [id number] NRG COLONY COUNT 10,000/ML - 100,000/ML NRG FTX;REPORTABLE NO TYPE OBTAINED; NON A,B,C,F,AND G NRG FREE TEXT ENTRY 2 PLUS, NRG FREE TEXT ENTRY 3 MIXED HOME <10,000/ML NRG Complete blood count (CBC) with automate d white blood cell (WBC) differential - 02/19/17 11:23 Blood leukocytes automated count (number/volume) 5.4 10*3/uL 4.3-11.0 Blood erythrocytes automated count (number/volume) 4.95 10*6/uL 4.35-5.85 Venous blood hemoglobin measurement (mass/volume) 15.5 g/dL 11.5-16.0 Blood hematocrit (volume fraction) 46 % 35-52 Automated erythrocyte mean corpuscular volume 94 [ foz_us] 80-99 Automated erythrocyte mean corpuscular h emoglobin (mass per erythrocyte) 31 pg 25-34 Automated erythrocyte mean corpuscular h emoglobin concentration measurement (mass/volume) 34 g/dL 32-36 Automated erythrocyte distribution width ratio 13. 1 % 10.0- 14.5 Automated blood platelet count (count/volume) 263 10*3/uL 130-400 Automated blood platelet mean volume measurement 9.2 [foz_us] 7.4-10.4 Automated blood neutrophils/100 leukocytes 66 % 42-75 Automated blood lymphocytes/100 leukocytes 25 % 12-44 Blood monocytes/100 leukocytes 9 % 0-12 Automated blood eosinophils/100 leukocytes 0 % 0-10 Automated blood basophils/100 leukocytes 0 % 0-10 Blood neutrophils automated count (number/volume) 3.5 10*3 1.8-7.8 Blood lymphocytes automated count (number/volume) 1.3 10*3 1.0-4.0 Blood monocytes automated count (number/volume) 0. 5 10*3 0.0-1.0 Automated eosinophil count 0.0 10*3/uL 0 .0-0.3 Automated blood basophil count (count/volume) 0.0 10*3/uL 0.0-0.1 Comprehensive metabolic panel - 02/19/17 11:23 Serum or plasma sodium measurement (moles/volume) 138 mmol/L 135-145 Serum or plasma potassium measurement (moles/volume) 3.8 mmol/L 3.6-5.0 Serum or plasma chloride measurement (moles/volume) 102 mmol/L 98-107 Carbon dioxide 24 mmol/L 21-32 Serum or plasma anion gap determination (moles/volume) 12 mmol/L 5-14 Serum or plasma urea nitrogen measurement (mass/volume ) 9 mg/dL 7-18 Serum or plasma creatinine measurement (mass/volume) 0.78 mg/dL 0.60-1.30 Serum or plasma urea nitrogen/creatinine mass ratio 12 NRG Serum or plasma creatinine measurement w ith calculation of estimated glomerular filtration rate > NRG Serum or plasma glucose measurement (mass/volume) 111 mg/dL 70-105 Serum or plasma calcium measurement (mass/volume) 9.2 mg/dL 8.5-10.1 Serum or plasma total bilirubin measurement (mass/volu me) 0.6 mg/dL 0.1-1.0 Serum or plasma alkaline phosphatase erna surement (enzymatic activity/volume) 51 U/L 40-136 Serum or plasma aspartate aminotransfera se measurement (enzymatic activity/volume) 17 U/L 5-34 Serum or plasma alanine aminotransferase measurement (enzymatic activity/volume) 17 U/L 0-55 Serum or plasma protein measurement (mass/volume) 6.8 g/dL 6.4-8.2 Serum or plasma albumin measurement (mass/volume) 4.0 g/dL 3.2-4.5 Lipase - 02/19/17 11:23 Lipase 13 U/L 8-78 Methicillin resistant Staphylococcus aur eus (MRSA) screening culture - 02/19/17 16:00 Methicillin resistant Staphylococcus aureus (MRSA) scr eening culture NEG NRG Complete blood count (CBC) with automate d white blood cell (WBC) differential - 03/13/17 10:38 Blood leukocytes automated count (number/volume) 7.7 10*3/uL 4.3-11.0 Blood erythrocytes automated count (number/volume) 4.93 10*6/uL 4.35-5.85 Venous blood hemoglobin measurement (mass/volume) 16.2 g/dL 11.5-16.0 Blood hematocrit (volume fraction) 47 % 35-52 Automated erythrocyte mean corpuscular volume 94 [ foz_us] 80-99 Automated erythrocyte mean corpuscular h emoglobin (mass per erythrocyte) 33 pg 25-34 Automated erythrocyte mean corpuscular h emoglobin concentration measurement (mass/volume) 35 g/dL 32-36 Automated erythrocyte distribution width ratio 12. 6 % 10.0- 14.5 Automated blood platelet count (count/volume) 314 10*3/uL 130-400 Automated blood platelet mean volume measurement 9.0 [foz_us] 7.4-10.4 Automated blood neutrophils/100 leukocytes 64 % 42-75 Automated blood lymphocytes/100 leukocytes 25 % 12-44 Blood monocytes/100 leukocytes 10 % 0-12 Automated blood eosinophils/100 leukocytes 1 % 0-10 Automated blood basophils/100 leukocytes 0 % 0-10 Blood neutrophils automated count (number/volume) 5.0 10*3 1.8-7.8 Blood lymphocytes automated count (number/volume) 1.9 10*3 1.0-4.0 Blood monocytes automated count (number/volume) 0. 8 10*3 0.0-1.0 Automated eosinophil count 0.1 10*3/uL 0 .0-0.3 Automated blood basophil count (count/volume) 0.0 10*3/uL 0.0-0.1 Comprehensive metabolic panel - 03/13/17 10:38 Serum or plasma sodium measurement (moles/volume) 139 mmol/L 135-145 Serum or plasma potassium measurement (moles/volume) 4.2 mmol/L 3.6-5.0 Serum or plasma chloride measurement (moles/volume) 103 mmol/L 98-107 Carbon dioxide 23 mmol/L 21-32 Serum or plasma anion gap determination (moles/volume) 13 mmol/L 5-14 Serum or plasma urea nitrogen measurement (mass/volume ) 11 mg/dL 7-18 Serum or plasma creatinine measurement (mass/volume) 0.91 mg/dL 0.60-1.30 Serum or plasma urea nitrogen/creatinine mass ratio 12 NRG Serum or plasma creatinine measurement w ith calculation of estimated glomerular filtration rate > NRG Serum or plasma glucose measurement (mass/volume) 129 mg/dL 70-105 Serum or plasma calcium measurement (mass/volume) 9.5 mg/dL 8.5-10.1 Serum or plasma total bilirubin measurement (mass/volu me) 0.8 mg/dL 0.1-1.0 Serum or plasma alkaline phosphatase erna surement (enzymatic activity/volume) 56 U/L 40-136 Serum or plasma aspartate aminotransfera se measurement (enzymatic activity/volume) 21 U/L 5-34 Serum or plasma alanine aminotransferase measurement (enzymatic activity/volume) 20 U/L 0-55 Serum or plasma protein measurement (mass/volume) 7.0 g/dL 6.4-8.2 Serum or plasma albumin measurement (mass/volume) 4.0 g/dL 3.2-4.5 Complete urinalysis with reflex to cultu re - 03/13/17 11:11 Urine color determination YELLOW NRG Urine clarity determination SLIGHTLY CLOUDY NRG Urine pH measurement by test strip 5 5-9 Specific gravity of urine by test strip 1.030 1.016-1.022 Urine protein assay by test strip, semi-quantitative 2+ NEGATIVE Urine glucose detection by automated test strip NE GATIVE NEGATIVE Erythrocytes detection in urine sediment by light micr oscopy 1+ NEGATIVE Urine ketones detection by automated test strip 2+ NEGATIVE Urine nitrite detection by test strip NEGATIVE NEGATIVE Urine total bilirubin detection by test strip 2+ NEGATIVE Urine urobilinogen measurement by automated test strip (mass/volume) 1 mg/dL NORMAL Urine leukocyte esterase detection by dipstick 3+ NEGATIVE Automated urine sediment erythrocyte cou nt by microscopy (number/high power field) [HPF] NRG Automated urine sediment leukocyte count by microscopy (number/high power field) [HPF] NRG Bacteria detection in urine sediment by light microsco py FEW NRG Squamous epithelial cells detection in u rine sediment by light microscopy 2-5 NRG Crystals detection in urine sediment by light microsco py PRESENT NRG Casts detection in urine sediment by light microscopy PRESENT NRG Mucus detection in urine sediment by light microscopy MODERATE NRG Complete urinalysis with reflex to culture YES NRG Hyaline casts detection in urine sediment by light dandre roscopy 10-25 NRG Calcium oxalate crystals detection in ur ine sediment by light microscopy MODERATE NRG Bacterial urine culture - 03/13/17 11:11 URINE CULTURE RESULTS 10,000/ML - 100,000/ML NRG Complete blood count (CBC) with automate d white blood cell (WBC) differential - 07/12/18 09:50 Blood leukocytes automated count (number/volume) 4.2 10*3/uL 4.3-11.0 Blood erythrocytes automated count (number/volume) 5.29 10*6/uL 4.35-5.85 Venous blood hemoglobin measurement (mass/volume) 16.4 g/dL 11.5-16.0 Blood hematocrit (volume fraction) 48 % 35-52 Automated erythrocyte mean corpuscular volume 92 [ foz_us] 80-99 Automated erythrocyte mean corpuscular h emoglobin (mass per erythrocyte) 31 pg 25-34 Automated erythrocyte mean corpuscular h emoglobin concentration measurement (mass/volume) 34 g/dL 32-36 Automated erythrocyte distribution width ratio 13. 4 % 10.0- 14.5 Automated blood platelet count (count/volume) 259 10*3/uL 130-400 Automated blood platelet mean volume measurement 9.4 [foz_us] 7.4-10.4 Automated blood neutrophils/100 leukocytes 46 % 42-75 Automated blood lymphocytes/100 leukocytes 43 % 12-44 Blood monocytes/100 leukocytes 8 % 0-12 Automated blood eosinophils/100 leukocytes 2 % 0-10 Automated blood basophils/100 leukocytes 1 % 0-10 Blood neutrophils automated count (number/volume) 1.9 10*3 1.8-7.8 Blood lymphocytes automated count (number/volume) 1.8 10*3 1.0-4.0 Blood monocytes automated count (number/volume) 0. 3 10*3 0.0-1.0 Automated eosinophil count 0.1 10*3/uL 0 .0-0.3 Automated blood basophil count (count/volume) 0.0 10*3/uL 0.0-0.1 PT panel in platelet poor plasma by coag ulation assay - 07/12/18 09:50 Prothrombin time (PT) in platelet poor plasma by coagu lation assay 12.4 s 12.2-14.7 INR in platelet poor plasma or blood by coagulation as say 0.9 0.8-1.4 Activated partial thromboplastin time (a PTT) in platelet poor plasma bycoagulation assay - 07/12/18 09:50 Activated partial thromboplastin time (a PTT) in platelet poor plasma bycoagulation assay 24 s 24-35 Comprehensive metabolic panel - 07/12/18 09:50 Serum or plasma sodium measurement (moles/volume) 142 mmol/L 135-145 Serum or plasma potassium measurement (moles/volume) 3.7 mmol/L 3.6-5.0 Serum or plasma chloride measurement (moles/volume) 105 mmol/L 98-107 Carbon dioxide 22 mmol/L 21-32 Serum or plasma anion gap determination (moles/volume) 15 mmol/L 5-14 Serum or plasma urea nitrogen measurement (mass/volume ) 11 mg/dL 7-18 Serum or plasma creatinine measurement (mass/volume) 0.77 mg/dL 0.60-1.30 Serum or plasma urea nitrogen/creatinine mass ratio 14 NRG Serum or plasma creatinine measurement w ith calculation of estimated glomerular filtration rate > NRG Serum or plasma glucose measurement (mass/volume) 96 mg/dL 70-105 Serum or plasma calcium measurement (mass/volume) 9.5 mg/dL 8.5-10.1 Serum or plasma total bilirubin measurement (mass/volu me) 0.9 mg/dL 0.1-1.0 Serum or plasma alkaline phosphatase erna surement (enzymatic activity/volume) 68 U/L 40-136 Serum or plasma aspartate aminotransfera se measurement (enzymatic activity/volume) 21 U/L 5-34 Serum or plasma alanine aminotransferase measurement (enzymatic activity/volume) 13 U/L 0-55 Serum or plasma protein measurement (mass/volume) 6.9 g/dL 6.4-8.2 Serum or plasma albumin measurement (mass/volume) 4.2 g/dL 3.2-4.5 CALCIUM CORRECTED 9.3 mg/dL 8.5-10.1 Magnesium - 07/12/18 09:50 Magnesium 2.4 mg/dL 1.8-2.4 THYROID STIMULATING HORMONE - 07/12/18 0 9:50 THYROID STIMULATING HORMONE 19.40 u[iU]/mL 0.35-4.94 Serum or plasma troponin i.cardiac measu rement (mass/volume) - 07/12/18 09:50 Serum or plasma troponin i.cardiac measurement (mass/v olume) < ng/mL <0.028 Myoglobin, serum - 07/12/18 09:50 Myoglobin, serum 39.0 ng/mL 10.0-92.0 Serum or plasma C reactive protein measu rement (mass/volume) - 07/12/18 09:50 Serum or plasma C reactive protein measurement (mass/v olume) 0.07 mg/dL 0.00-0.50 Serum or plasma thyroxine (T4) free jaciel urement (mass/volume) - 07/12/18 09:50 Serum or plasma thyroxine (T4) free measurement (mass/ volume) 0.80 ng/dL 0.70-1.48 Microscopic examination by wet preparati on - 07/12/18 11:20 WET PREP RESULTS NO CLUE CELLS OBSERVED NRG Complete urinalysis with reflex to cultu re - 07/12/18 11:35 Urine color determination YELLOW NRG Urine clarity determination CLEAR NR G Urine pH measurement by test strip 5 5-9 Specific gravity of urine by test strip 1.030 1.016-1.022 Urine protein assay by test strip, semi-quantitative 2+ NEGATIVE Urine glucose detection by automated test strip NE GATIVE NEGATIVE Erythrocytes detection in urine sediment by light micr oscopy 1+ NEGATIVE Urine ketones detection by automated test strip 1+ NEGATIVE Urine nitrite detection by test strip NEGATIVE NEGATIVE Urine total bilirubin detection by test strip NEGA TIVE NEGATIVE Urine urobilinogen measurement by automated test strip (mass/volume) 1 mg/dL NORMAL Urine leukocyte esterase detection by dipstick 2+ NEGATIVE Automated urine sediment erythrocyte cou nt by microscopy (number/high power field) [HPF] NRG Automated urine sediment leukocyte count by microscopy (number/high power field) [HPF] NRG Bacteria detection in urine sediment by light microsco py NEGATIVE NRG Squamous epithelial cells detection in u rine sediment by light microscopy 5-10 NRG Crystals detection in urine sediment by light microsco py PRESENT NRG Casts detection in urine sediment by light microscopy NONE NRG Mucus detection in urine sediment by light microscopy MODERATE NRG Complete urinalysis with reflex to culture YES NRG Calcium oxalate crystals detection in ur ine sediment by light microscopy MODERATE NRG Bacterial urine culture - 07/12/18 11:35 Bacterial urine culture 3 OR MORE NRG COLONY COUNT 60,000 cfu/ml NRG FTX;REPORTABLE GRAM POSITIVES SUGGESTING PROBABLE NRG FREE TEXT ENTRY 2 COLLECTION CONTAMINATION WITH SK IN NRG FREE TEXT ENTRY 3 HOME. NO SUSCEPTIBILITY PERFORM ED. NRG Complete blood count (CBC) with automate d white blood cell (WBC) differential - 08/15/19 17:28 Blood leukocytes automated count (number/volume) 4.5 10*3/uL 4.3-11.0 Blood erythrocytes automated count (number/volume) 4.93 10*6/uL 4.35-5.85 Venous blood hemoglobin measurement (mass/volume) 15.6 g/dL 11.5-16.0 Blood hematocrit (volume fraction) 46 % 35-52 Automated erythrocyte mean corpuscular volume 94 [ foz_us] 80-99 Automated erythrocyte mean corpuscular h emoglobin (mass per erythrocyte) 32 pg 25-34 Automated erythrocyte mean corpuscular h emoglobin concentration measurement (mass/volume) 34 g/dL 32-36 Automated erythrocyte distribution width ratio 13. 7 % 10.0- 14.5 Automated blood platelet count (count/volume) 239 10*3/uL 130-400 Automated blood platelet mean volume measurement 9.2 [foz_us] 7.4-10.4 Automated blood neutrophils/100 leukocytes 36 % 42-75 Automated blood lymphocytes/100 leukocytes 48 % 12-44 Blood monocytes/100 leukocytes 13 % 0-12 Automated blood eosinophils/100 leukocytes 2 % 0-10 Automated blood basophils/100 leukocytes 1 % 0-10 Blood neutrophils automated count (number/volume) 1.6 10*3 1.8-7.8 Blood lymphocytes automated count (number/volume) 2.2 10*3 1.0-4.0 Blood monocytes automated count (number/volume) 0. 6 10*3 0.0-1.0 Automated eosinophil count 0.1 10*3/uL 0 .0-0.3 Automated blood basophil count (count/volume) 0.0 10*3/uL 0.0-0.1 Comprehensive metabolic panel - 08/15/19 17:28 Serum or plasma sodium measurement (moles/volume) 145 mmol/L 135-145 Serum or plasma potassium measurement (moles/volume) 3.8 mmol/L 3.6-5.0 Serum or plasma chloride measurement (moles/volume) 109 mmol/L 98-107 Carbon dioxide 27 mmol/L 21-32 Serum or plasma anion gap determination (moles/volume) 9 mmol/L 5-14 Serum or plasma urea nitrogen measurement (mass/volume ) 16 mg/dL 7-18 Serum or plasma creatinine measurement (mass/volume) 0.79 mg/dL 0.60-1.30 Serum or plasma urea nitrogen/creatinine mass ratio 20 NRG Serum or plasma creatinine measurement w ith calculation of estimated glomerular filtration rate > NRG Serum or plasma glucose measurement (mass/volume) 93 mg/dL 70-105 Serum or plasma calcium measurement (mass/volume) 8.9 mg/dL 8.5-10.1 Serum or plasma total bilirubin measurement (mass/volu me) 0.4 mg/dL 0.1-1.0 Serum or plasma alkaline phosphatase erna surement (enzymatic activity/volume) 70 U/L 40-136 Serum or plasma aspartate aminotransfera se measurement (enzymatic activity/volume) 21 U/L 5-34 Serum or plasma alanine aminotransferase measurement (enzymatic activity/volume) 20 U/L 0-55 Serum or plasma protein measurement (mass/volume) 6.6 g/dL 6.4-8.2 Serum or plasma albumin measurement (mass/volume) 3.8 g/dL 3.2-4.5 CALCIUM CORRECTED 9.1 mg/dL 8.5-10.1 PT panel in platelet poor plasma by coag ulation assay - 08/15/19 17:28 Prothrombin time (PT) in platelet poor plasma by coagu lation assay 12.1 s 12.2-14.7 INR in platelet poor plasma or blood by coagulation as say 0.9 0.8-1.4 Magnesium - 08/15/19 17:28 Magnesium 2.3 mg/dL 1.6-2.4 THYROID STIMULATING HORMONE - 08/15/19 1 7:28 THYROID STIMULATING HORMONE 21.92 u[iU]/mL 0.35-4.94 Serum or plasma thyroxine (T4) free jaciel urement (mass/volume) - 08/15/19 17:28 Serum or plasma thyroxine (T4) free measurement (mass/ volume) 0.80 ng/dL 0.70-1.48 Complete urinalysis with reflex to cultu re - 08/15/19 19:00 Urine color determination YELLOW NRG Urine clarity determination CLEAR NR G Urine pH measurement by test strip 5.5 5-9 Specific gravity of urine by test strip >= 1.016-1.022 Urine protein assay by test strip, semi-quantitative TRACE NEGATIVE Urine glucose detection by automated test strip NE GATIVE NEGATIVE Erythrocytes detection in urine sediment by light micr oscopy NEGATIVE NEGATIVE Urine ketones detection by automated test strip NE GATIVE NEGATIVE Urine nitrite detection by test strip NEGATIVE NEGATIVE Urine total bilirubin detection by test strip NEGA TIVE NEGATIVE Urine urobilinogen measurement by automated test strip (mass/volume) 0.2 mg/dL < = 1.0 Urine leukocyte esterase detection by dipstick 1+ NEGATIVE Automated urine sediment erythrocyte cou nt by microscopy (number/high power field) NONE NRG Automated urine sediment leukocyte count by microscopy (number/high power field) [HPF] NRG Bacteria detection in urine sediment by light microsco py FEW NRG Squamous epithelial cells detection in u rine sediment by light microscopy 0-2 NRG Crystals detection in urine sediment by light microsco py PRESENT NRG Casts detection in urine sediment by light microscopy NONE NRG Mucus detection in urine sediment by light microscopy MODERATE NRG Complete urinalysis with reflex to culture YES NRG Calcium oxalate crystals detection in ur ine sediment by light microscopy FEW NRG Encounters ACCT No. Visit Date/Time Discharge Status Pt. Type Provider Facility Loc./Unit Complaint [id number] 05/22/2017 11:15:00 Document Registration [id number] 10/02/2017 09:00:00 01/21/2018 09:00: 00 DIS Outpatient Zachariah Hollingsworth [id number] 09/21/2017 11:05:00 09/30/2017 09:00: 00 DIS Inpatient ZAK HIGGINBOTHAM [facility] [id number] 09/21/2017 11:27:37 Document Registration [id number] 07/12/2018 09:14:00 019 12:22:00 DIS Emergency SPENSER ALBERT APRN [facility] ER NAUSEA;WEAKNESS [id number] 03/13/2017 10:13:00 018 13:59:00 DIS Emergency RAMONA MARINO, MITRA [place] [facility] ER PASSED OUT 2 X THIS AM [id number] 02/19/2017 14:45:00 017 09:10:00 DIS Outpatient ALEXSANDER BARRERA DO [facility] SYMPTOMATIC CHOLELITHIA SIS [id number] 12/07/2015 06:15:00 016 10:09:00 DIS Outpatient MARJAN JEFFREY DPM [facility] PLANTAR FLEXED METATARSAL HAMMERTOE LEFT FOOT [id number] 12/05/2015 13:07:00 016 14:12:00 DIS Outpatient MARJAN JEFFREY DPM [facility] PREOP PLANTAR FLEXED METATARSAL HAMMERTOE LEFT FOOT [id number] 08/15/2019 17:17:[address] Emergency SPENSER ALBERT APRN [facility] ER FALL [id number] 05/26/2017 15:36:20 05/26/2017 23:59: 59 CLS Outpatient Shaun De Leon [id number] 05/22/2017 10:36:35 05/22/2017 23:59: 59 CLS Outpatient Shaun De Leon
[2019-08-15] MEDS: LACTATED RINGERS 1,000 ML IV SCH (19:58)
[2019-08-15] MEDS: NYSTATIN CREAM (MYCOSTATIN) 30 GM TUBE TP SCH (19:58)
[2019-08-15] MEDS ORDERED: cefTRIAXone 1,000 MG/SWFI 10 ML IV PUSH IV NR ×2 (20:00)
[2019-08-15] MEDS ORDERED: IBUPROFEN 600 MG (MOTRIN) TAB PO PRN (20:00)
[2019-08-15] MEDS ORDERED: ACETAMINOPHEN 325 MG TABLET PO PRN (20:00)
[2019-08-15] MEDS ORDERED: CATHETER FLUSH 10 ML SYR IV PRN (20:00)
[2019-08-16 00:36] VITALS: BP 153/86
[2019-08-16 04:00] VITALS: BP 124/72
[2019-08-16 05:12] VITALS: BP 124/72
[2019-08-16] MEDS: LACTATED RINGERS 1,000 ML IV SCH (06:09)
[2019-08-16 08:00] VITALS: BP 122/76
[2019-08-16] MEDS ORDERED: cefTRIAXone FOR IV USE 1,000 MG in WATER (STERILE) FOR INJECTION 10 ML IV SCH (08:30)
--- NOTE | 2019-08-16 09:29 | Short Stay Summary ---
History of Present Illness History of Present Illness Date of Admission Aug 15, 2019 at 18:40 Date of Discharge Attending Physician Lucho Puentes MD Admitting Physician Chepe Orozco MD Consult Allergies and Home Medications Allergies Coded Allergies: No Known Drug Allergies (Unverified , 02/19/17) Home Medications Alprazolam 0.25 Mg Tablet, 0.25 MG PO TID PRN for ANXIETY, (Reported) Amlodipine Besylate 5 Mg Tablet, 5 MG PO DAILY, (Reported) Cefuroxime Axetil 250 Mg Tablet, 250 MG PO BID Prescribed by: SPENSER ALBERT on 07/12/18 1207 Citalopram Hydrobromide 40 Mg Tablet, 40 MG PO HS, (Reported) Fexofenadine HCl 60 Mg Tablet, 60 MG PO BID PRN for CONGESTION, (Reported) Hydrocodone Bit/Acetaminophen 1 Each Tablet, 1 TAB PO Q6H PRN Prescribed by: ALEXSANDER BARRERA on 02/19/17 1938 Levothyroxine Sodium 75 Mcg Tablet, 75 MCG PO DAILY, (Reported) Nystatin 15 Gm Powder, 15 GM TP TID Prescribed by: SPENSER ALBERT on 07/12/18 1207 Simvastatin 40 Mg Tablet, 40 MG PO DAILY, (Reported) Sucralfate 1 Gm Tablet, 1 GM PO QID PRN for HEARTBURN, (Reported) Past Cohdaek-Ckiido-Txgxbq Hx Patient Social History Alcohol Use: Denies Use Recreational Drug Use: No Smoking Status: Never a Smoker 2nd Hand Smoke Exposure: No Recent Foreign Travel: No Contact w/other who traveled: No Recent Hopitalizations: No Recent Infectious Disease Expo: No Immunizations Up To Date Tetanus Booster (TDap): Less than 5yrs Pediatric: No Date of Pneumonia Vaccine: Dec 04, 2017 Date of Influenza Vaccine: Feb 20, 2017 Seasonal Allergies Seasonal Allergies: Yes Surgeries Yes (D&C, LT FOOT HAMMERTOE) Gallbladder, Orthopedic Respiratory No Currently Using CPAP: No Currently Using BIPAP: No Cardiovascular Yes High Cholesterol, Hypertension Neurological No Reproductive System Hx Reproductive Disorders: No Sexually Transmitted Disease: No HIV/AIDS: No Female Reproductive Disorders: Denies Genitourinary Yes Kidney Infection, UTI-Chronic Gastrointestinal Yes Gastroesophageal Reflux, Hiatal Hernia, Irritable Bowel Musculoskeletal Yes Arthritis Endocrine History of Endocrine Disorders: Yes Endocrine Disorders: Hypothyroidsim HEENT History of HEENT Disorders: No Loss of Vision: Bilateral Hearing Impairment: Denies Cancer No Psychosocial History of Psychiatric Problem: Yes Behavioral Health Disorders: Anxiety, Depression Integumentary History of Skin or Integumenta: No Blood Transfusions History of Blood Disorders: No Adverse Reaction to a Blood Tr: No (N/A) Family Medical History Significant Family History: Cancer, CAD Under 55 Years Old, Diabetes Family Hx: Arthritis Cardiovascular disease Cataracts Colon cancer Diabetes mellitus Hypertension Myocardial infarction Parkinson's disease Psychosocial problem Respiratory disorder Thyroid disease Visual disorder Physical Exam Vital Signs Vital Signs - First Documented 08/15/19 08/15/19 17:32 19:34 Temp 36.9 Pulse 69 Resp 18 B/P (MAP) 112/77 (89) Pulse Ox 100 O2 Delivery Room Air Capillary Refill : Less Than 3 Seconds Height, Weight, BMI Height: 5'2.00" Weight: 150lbs. 0.0oz. 68.527573ru; 24.42 BMI Method:Stated Clinical Quality Measures DVT/VTE Risk/Contraindication: Risk Factor Score Per Nursin RFS Level Per Nursing on Admit: 2=Moderate Short Stay Diagnosis Discharge Diagnosis-Short Stay Admission Diagnosis: FALLING EPISODE SEVERE BIPOLAR DEPRESSION PARKINSON'S DISEASE HYPOTHYROIDISM SELF NEGLECT DYSURIA ANOREXIA DEMENTIA Final Discharge Diagnosis: FALLING EPISODE SEVERE BIPOLAR DEPRESSION PARKINSON'S DISEASE HYPOTHYROIDISM SELF NEGLECT ANOREXIA DEMENTIA Conclusion Labs Laboratory Tests 08/15/19 17:28: White Blood Count 4.5, Red Blood Count 4.93, Hemoglobin 15.6, Hematocrit 46, Mean Corpuscular Volume 94, Mean Corpuscular Hemoglobin 32, Mean Corpuscular Hemoglobin Concent 34, Red Cell Distribution Width 13.7, Platelet Count 239, Mean Platelet Volume 9.2, Neutrophils (%) (Auto) 36L, Lymphocytes (%) (Auto) 48H , Monocytes (%) (Auto) 13H, Eosinophils (%) (Auto) 2, Basophils (%) (Auto) 1, Neutrophils # (Auto) 1.6L, Lymphocytes # (Auto) 2.2, Monocytes # (Auto) 0.6, Eosinophils # (Auto) 0.1, Basophils # (Auto) 0.0, Prothrombin Time 12.1L, INR Comment 0.9, Sodium Level 145, Potassium Level 3.8, Chloride Level 109H, Carbon Dioxide Level 27, Anion Gap 9, Blood Urea Nitrogen 16, Creatinine 0.79, Estimat Glomerular Filtration Rate > 60, BUN/Creatinine Ratio 20, Glucose Level 93, Calcium Level 8.9, Corrected Calcium 9.1, Magnesium Level 2.3, Total Bilirubin 0.4, Aspartate Amino Transf (AST/SGOT) 21, Alanine Aminotransferase (ALT/SGPT) 20, Alkaline Phosphatase 70, Total Protein 6.6, Albumin 3.8, Thyroid Stimulating Hormone (TSH) 21.92H, Free Thyroxine 0.80 08/15/19 19:00: Urine Color YELLOW, Urine Clarity CLEAR, Urine pH 5.5, Urine Specific [place] >=1.030, Urine Protein TRACEH, Urine Glucose (UA) NEGATIVE, Urine Ketones NEGATIVE, Urine Nitrite NEGATIVE, Urine Bilirubin NEGATIVE, Urine Urobilinogen 0.2, Urine Leukocyte Esterase 1+H, Urine RBC (Auto) NEGATIVE, Urine RBC NONE, Urine WBC 5-10H, Urine Squamous Epithelial Cells 0-2, Urine Crystals PRESENTH, Urine Calcium Oxalate Crystals FEWH, Urine Bacteria FEWH, Urine Casts NONE, Urine Mucus MODERATEH, Urine Culture Indicated YES Conclusion/Plan FALLING EPISODE SEVERE BIPOLAR DEPRESSION PARKINSON'S DISEASE HYPOTHYROIDISM SELF NEGLECT DYSURIA ANOREXIA DEMENTIA DISCHARGE TO [facility] LUCHO PUENTES MD Aug 16, 2019 09:29
[2019-08-16] MEDS: NYSTATIN CREAM (MYCOSTATIN) 30 GM TUBE TP SCH ×2 (10:06→13:00)
[2019-08-16 12:00] VITALS: BP 109/76
--- NOTE | 2019-08-16 13:32 | NUR ---
CM/SS: Visited with pt and spouse as to plan for discharge Plan: Pt to be admitted to [facility] Summary: Pt reports that she has no hope that she will feel better. Pt reports being weak an no energy and being unable to walk. Advanced Directive paperwork discussed and pt names her spouse as her agent when she no longer can make health care decision, as well as her daughter if can not. Pt reports she is not doing very well today. Pt reports that she has been at [facility] before and she did get some help when she was there not too long ago. Pt is cooperative and willing to go to [facility]. [facility] ([facility]) talked with the pt. via phone. Pt is agreeable to go there today and spouse reports that he can drive the pt to [place], when dismissed from here. He is aware that there is another means of transportation for pt to get there. He is ok to drive her and reports that he will take her from this hospital to there directly. He is instructed to go to the ER and they will get [facility] from [facility] for the admission. Pt to be admitted there at three today. Pt is willing at this time to go in hopes that she will feel better. Pt also asked about being a Do not resuscitate (DNR) She is able to verbalize what this means. Pt is aware the physician is to sign off on the form. Physician Dr. Puentes is notified of the DNR request, as well as the time of admission. Pt is able to identify that she does not have alot of hope of getting better. Pt is encouraged to do her best in trying to get better when she is admitted. Pt verbalizes understanding. Spouse reports that pt has sat for days and has not talked to him much. He also shared she has not left the home. Pt is reportedly off her current medication. Pt seems open to want to get some help and feel better. Addendum: 08/16/19 at 1440 by JEREMY VANESSA SS Out of hospital Do Not Resuscitate formed signed signed by pt. Form is faxed to Dr Puentes for signature. Pt and spouse are instructed that if the form is received after the pt is discharge it will be forwarded to [facility]. They verbalize understanding.
[2019-08-16 14:30] VITALS: BP 109/76
--- NOTE | 2019-08-16 14:33 | NUR ---
RD ASSESSMENT PMHx: Parkinson's disease; hypercholesterolemia; HTN; chronic UTI; GERD; hiatal hernia; hypothyroidism; irritable bowel PT INTERACTION: Pt was awake and pleasant during nutrition assessment. Pt states current appetite is poor and has been for "a long time." Note avg PO intake 25% x1meal, per chart review. Pt states following a regular diet at home, and has no issues with chewing/swallowing food. Pt states some recent issues with nausea and vomiting. Pt states no recent issues with constipation or diarrhea, and that her last BM was 08/13. Note pt not currently on bowel regimen per chart review. Pt states recent 20# wt loss x6mon. Note unable to determine recent wt hx, per chart review. ABNORMAL NUTRITION-RELATED LAB VALUES LOW: HIGH:Cl 109 Est. kcal needs: 6453-1418 kcal | 25-30 kcal/kg Est. Pro needs: 48-61 g Pro | 0.8-1.0 g Pro/kg PES STATEMENT: Inadequate oral intake (NI-2.1) related to loss of appetite | nausea | vomiting as evidenced by pt interview | PO intake 25% x1meal INTERVENTION: Continue with current diet order of Regular diet. Continue with current supplementation order of Ensure Enlive (vary) with meals TID, for increased kcal intake. Provides 350 kcal and 13 g Pro per serving. Will continue to follow and reassess as pt needs, intake, and status change. MONITOR/EVALUATE: PO Intake; Plan of Care; Hydration Status; Weight Status; Lab Values Ai Alicea, MS, RD, LD
== END 2019-08-16 14:34 | disposition designated cancer center or children's hospital (05) ==
LOC: EDUNIT# 17:17 → ER 17:17 → 4TH 18:40
PROVIDERS: ADMIT Family Medicine; ATTEND Family Medicine
DX: R29.6 Repeated falls (principal); F32.9 Major depressive disorder, single episode, unspecified; G20 Parkinson's disease; E03.9 Hypothyroidism, unspecified; N39.0 Urinary tract infection, site not specified; K21.9 Gastro-esophageal reflux disease without esophagitis; M19.90 Unspecified osteoarthritis, unspecified site; E78.00 Pure hypercholesterolemia, unspecified; I10 Essential (primary) hypertension; F41.9 Anxiety disorder, unspecified; Z83.3 Family history of diabetes mellitus; Z79.899 Other long term (current) drug therapy
CPT/HCPCS: 36415; 70450; 72131; 72170; 80053; 81000; 82306; 82607; 82728; 83540; 83735; 84134; 84439; 84443; 84481; 85025; 85610; 86666; 86668; 86757; 86780; 87088; 93005; G0378

== ENCOUNTER 2020-02-07 05:31 | Outpatient (RCR) | payer MEDICARE ==
[~2020-02-07] VITALS: Ht 157.5 cm; Wt 63.2 kg
[~2020-02-07 05:31] MED LIST changes: +ALPR.25T PO; -ALPR0.254 PO; +AMLO-250 PO; -AMLO5TAB9 PO
[2020-02-07] MEDS ORDERED: DEXT10TA9 PO (10:58)
[2020-02-07] MEDS ORDERED: LEVO100T7 PO (10:58)
[2020-02-07] MEDS ORDERED: DIVA125T2 PO (10:58)
[2020-02-07] MEDS ORDERED: OLAN5TAB25 PO (11:24)
[2020-02-07] MEDS ORDERED: ERGO50006 PO (11:24)
[2020-02-07] MEDS ORDERED: DOXY100C2 PO (11:24)
[2020-02-07] MEDS ORDERED: FLUV25TA3 PO (11:24)
== END 2020-02-07 10:56 | disposition home or self-care (01) ==
LOC: PREOP 05:31
PROVIDERS: ATTEND Surgery
DX: Z01.818 Encounter for other preprocedural examination (principal); L02.412 Cutaneous abscess of left axilla; Z20.828 Contact with and (suspected) exposure to other viral communicable diseases
CPT/HCPCS: 87635

== ENCOUNTER 2020-02-09 10:15 | Day surgery (SDC) | payer MEDICARE ==
[2020-02-09] VITALS (9 sets, daily range): BP systolic 113–133; BP diastolic 64–89
[~2020-02-09] VITALS: Ht 157 cm; Wt 63.2 kg
[~2020-02-09 10:15] MED LIST changes: +DEXT10TA9 PO; +DIVA125T2 PO; +DOXY100C2 PO; +ERGO50006 PO; +FLUV25TA3 PO; +LEVO100T7 PO; +OLAN5TAB25 PO
[2020-02-09] MEDS ORDERED: LIDOCAINE PF 2% 5 ML (XYLOCAINE) VIAL ONE (10:41)
[2020-02-09] MEDS ORDERED: SEVOFLURANE (ULTANE) 15 ML INHAL SOLN ONE ×3 (10:41→11:30)
[2020-02-09] MEDS ORDERED: MIDAZOLAM 2 MG/2 ML (VERSED) VIAL ONE (10:41)
[2020-02-09] MEDS ORDERED: ONDANSETRON 4 MG/2 ML (SDV) Z0FRAN ONE (10:41)
[2020-02-09] MEDS ORDERED: fentaNYL INJECTION 100 MCG/2 ML AMP ONE (10:41)
[2020-02-09] MEDS ORDERED: proPOfol 200 MG/20 ML (DIPRIVAN) VIAL IV ONE (10:41)
[2020-02-09] MEDS ORDERED: LIDOCAINE/EPI 1%-1:100,000 (XYLOCAINE) 20ML ONE (10:46)
[2020-02-09] MEDS ORDERED: ceFAZolin 2 GM IV Premixed 50 ML ONE (10:52)
--- NOTE | 2020-02-09 10:53 | Progress Note-Pre Operative ---
Pre-Operative Progress Note H&P Reviewed The H&P was reviewed, patient examined and no changes noted. Date Seen by Provider: Feb 09, 2020 Time Seen by Provider: 10:52 Date H&P Reviewed: Feb 09, 2020 Time H&P Reviewed: 10:52 Pre-Operative Diagnosis: LEFT AXILLARY CYST ATUL CUEVAS DO Feb 09, 2020 10:53
[2020-02-09] MEDS ORDERED: ceFAZolin 2 GM IV Premixed 50 ML IV ONE (11:30)
[2020-02-09] MEDS ORDERED: LACTATED RINGERS 1,000 ML IV PRN (11:30)
--- NOTE | 2020-02-09 11:50 | Progress Note-Post Operative ---
Post-Operative Progess Note Surgeon (s)/Associate Professor Of English (s) Surgeon ATUL CUEVAS DO Associate Professor Of English: na Pre-Operative Diagnosis LEFT AXILLARY CYST Post-Operative Diagnosis same Procedure & Operative Findings Date of Procedure 02/09/20 Procedure Performed/Findings excision left axillary cyst 2.5 x 5.5 cm skin and subcut tissue Anesthesia Type general Estimated Blood Loss Estimated blood loss (mL): min Specimens/Packing Specimens Removed skin, cyst and subcut tissue ATUL CUEVAS DO Feb 09, 2020 11:50
--- NOTE | 2020-02-09 11:52 | Discharge Inst-Simple/Standard ---
Discharge Inst-Standard Patient Instructions/Follow Up Plan of Care/Instructions/FU: 2 weeks [place] Activity as Tolerated: No Discharge Diet: Regular Diet Other Inst to Patient Follow up Appt: Make appointment for 2-3 week. Instructions: No lifting greater than 10 pounds. No strenuous activity. May shower in 24 hours, no tub bath or soaking. Use incentive spirometer at home as directed. No Smoking Skin/Wound Care: You have special glue over your incision that will fall off on it's own. Symptoms to Report: Appetite Changes, Extremity Discoloration, Numbness/Tingling, Swelling Increased, Bleeding Excessive, Eyesight Changes, Pain Increased, Urine Color Change, Constipation(Persistent), Fever over 101 degree F, Pain/Pressure in chest, Urinating Difficulty, Cough Up/Vomit Blood, Heart Beat Irreg/Pounding, Pain/Pressure in jaw, Vaginal Bleeding Increase, Cramps in feet or legs, Lightheadedness, Pain/Pressure in shoulder, Diarrhea(Persistent), Memory Changes Suddenly, Questions/Concerns, Weight gain consecutive days, Dizziness/Fainting, Nausea/Vomiting, Shortness of Breath, Weight gain over 2 pounds If questions or concerns contact your physician Or seek help at emergency department. ATUL CUEVAS DO Feb 09, 2020 11:52
--- NOTE | 2020-02-09 18:26 | OPERATIVE REPORT ---
DATE OF SERVICE: 02/09/2020 PREOPERATIVE DIAGNOSIS: Left axillary cyst. POSTOPERATIVE DIAGNOSIS: Left axillary cyst. PROCEDURE: Excision of left axillary cyst 2.5 x 5.5 cm skin and subcutaneous tissue and cyst. ANESTHESIA: General. ESTIMATED BLOOD LOSS: Minimal. COMPLICATIONS: None. INDICATIONS: The patient is a 74-year-old female with a cyst in the left axilla that were infected. She is on antibiotics and improved. She wishes to have these removed. She understands risks and benefits of procedure and wished to proceed with procedure. Consent was signed in the chart. DESCRIPTION OF PROCEDURE: The patient was taken to the hospital, brought into the operating suite. She was prepped and draped in sterile fashion. Timeout was performed. Local anesthetic was infiltrated around the axilla. A 15 blade scalpel was used to make an elliptical incision around the cyst, which measured 2.5 x 5.5 cm. Cautery was used to remove skin and subcutaneous tissue and the cyst entirety. The wound was then irrigated with copious amounts of irrigation and suction. Hemostasis was achieved. The skin was then closed using 4-0 Monocryl in a running subcuticular fashion. The area was then washed and dried and Skin Affix was placed over the incision. The patient tolerated procedure well without complications and taken to recovery room in stable condition. Job ID: [id number] DocumentID: [id number] Dictated Date: 02/09/2020 12:40:35 Train Driver Date: 02/09/2020 18:25:45 Dictated By: ATUL CUEVAS DO
== END 2020-02-09 13:20 | disposition home or self-care (01) ==
LOC: SDC 10:15
PROVIDERS: ATTEND Surgery
DX: L72.3 Sebaceous cyst (principal); I10 Essential (primary) hypertension; F32.9 Major depressive disorder, single episode, unspecified; F41.9 Anxiety disorder, unspecified; K44.9 Diaphragmatic hernia without obstruction or gangrene; E03.9 Hypothyroidism, unspecified; E78.5 Hyperlipidemia, unspecified; K21.00 Gastro-esophageal reflux disease with esophagitis, without bleeding; M19.90 Unspecified osteoarthritis, unspecified site; Z79.899 Other long term (current) drug therapy; Z83.3 Family history of diabetes mellitus
CPT/HCPCS: 87081

== ENCOUNTER 2021-08-22 14:30 | Emergency (ER) | payer MEDICARE ==
[~2021-08-22] VITALS: Ht 157 cm; Wt 59.0 kg
[~2021-08-22 14:30] MED LIST changes: -CITA40TA11 PO; +CITA40TA13 PO; -DOXY100C2 PO; +DOXY100C5 PO; +ERGO1250 PO; -ERGO50006 PO; +FEXO-338 PO; -FEXO-45 PO; +FLUV25TA13 PO; -FLUV25TA3 PO; -LISI-552 PO; +LISI20TA26 PO; -OLAN5TAB25 PO; +OLN5T PO
[2021-08-22 15:29] LABS: BASOPHILS # (AUTO) 0.1 10^3/uL (0.0-0.1); BASOPHILS % (AUTO) 1 % (0-10); EOSINOPHILS # (AUTO) 0.1 10^3/uL (0.0-0.3); EOSINOPHILS % (AUTO) 2 % (0-10); HEMATOCRIT 42 % (35-52); HEMOGLOBIN 13.8 g/dL (11.5-16.0); LYMPHOCYTES # (AUTO) 1.2 X 10^3 (1.0-4.0); LYMPHOCYTES % (AUTO) 30 % (12-44); MEAN CORPUSCULAR HEMOGLOBIN 31 pg (25-34); MEAN CORPUSCULAR HGB CONC 33 g/dL (32-36); MEAN CORPUSCULAR VOLUME 96 fL (80-99); MEAN PLATELET VOLUME 8.6 fL (9.0-12.2); MONOCYTES # (AUTO) 0.4 X 10^3 (0.0-1.0); MONOCYTES % (AUTO) 10 % (0-12); NEUTROPHILS # (AUTO) 2.2 X 10^3 (1.8-7.8); NEUTROPHILS % (AUTO) 56 % (42-75); PLATELET COUNT 219 10^3/uL (130-400); WHITE BLOOD COUNT 3.9 10^3/uL (4.3-11.0)
[2021-08-22 15:49] LABS: ALBUMIN 3.6 GM/DL (3.2-4.5)
[2021-08-22 15:50] LABS: POTASSIUM 4.4 MMOL/L (3.6-5.0)
[2021-08-22 15:51] LABS: CALCIUM 8.6 MG/DL (8.5-10.1)
[2021-08-22 15:52] LABS: TOTAL PROTEIN 6.2 GM/DL (6.4-8.2)
[2021-08-22 15:54] LABS: BILIRUBIN,TOTAL 0.6 MG/DL (0.1-1.0)
[2021-08-22 15:56] LABS: CREATININE SERUM 0.7 MG/DL (0.60-1.30)
[2021-08-22 15:59] LABS: MAGNESIUM 2.2 MG/DL (1.6-2.4)
[2021-08-22 16:20] LABS: FREE T4 (FREE THYROXINE) 0.9 NG/DL (0.70-1.48)
[2021-08-22 17:06] LABS: BILIRUBIN,URINE NEGATIVE (NEGATIVE); CLARITY,URINE CLEAR; COLOR,URINE YELLOW; GLUCOSE, URINE (UA) NEGATIVE (NEGATIVE); KETONES,URINE NEGATIVE (NEGATIVE); LEUKOCYTE ESTERASE ,URINE NEGATIVE (NEGATIVE); NITRITE,URINE NEGATIVE (NEGATIVE); PROTEIN,URINE NEGATIVE (NEGATIVE)
[2021-08-22 17:16] LABS: BACTERIA,URINE NEGATIVE /HPF; SQUAMOUS EPITHELIAL CELL,UR 0-2 /HPF; WBC,URINE 0-2 /HPF
--- NOTE | 2021-08-22 17:54 | ED General ---
General Chief Complaint: General Problems/Pain Stated Complaint: WEAKNESS Nursing Triage Note: PT STATES SHE HAS HAD THE SHAKES, WEAKNESS AND TANK WELDER TOLD HER "HER HEART DIDN'T SOUND RIGHT." HAS NOT FELT GOOD FOR A WEEK, HAS NOT BEEN OUT OF THE HOUSE FOR SEVERAL MONTHS. DIARRHEA YESTERDAY, BEING TREATED FOR A UTI, BURNING ON URINATION, STATES FINISHED WITH ABX BUT "DON'T THINK THEY DID ANY GOOD." Source of Information: Patient Exam Limitations: No Limitations History of Present Illness Date Seen by Provider: Aug 22, 2021 Time Seen by Provider: 14:38 Initial Comments This 41-year-old woman presents to the emergency room from home accompanied by her . She has complaints of irregular heartbeat, shakiness, and some pelvic discomfort which she has had for over a week. She was treated for UTI with Macrobid but states that did not help. She has significant history of mental health disorders including OCD and bipolar. She had an admission to the psychiatric unit at [facility] this spring. She rarely gets out of the house and does not follow-up at doctor's appointments. She is prescribed mirtazapine and Lexapro. She is ambulatory but states she feels generally weak. Allergies and Home Medications Allergies Coded Allergies: No Known Drug Allergies (Unverified , 02/19/17) Patient Home Medication List Home Medication List Reviewed: Yes Dextroamphetamine/Amphetamine (Adderall 10 mg Tablet) 10 Mg Tablet, 10 MG PO DAILY, (Reported) Entered as Reported by: LINDA NEVES on 02/07/20 1058 Divalproex Sodium (Depakote) 125 Mg Tablet.dr, 125 MG PO DAILY, (Reported) Entered as Reported by: LINDA NEVES on 02/07/20 1058 Doxycycline Hyclate (Doxycycline Hyclate) 100 Mg Capsule, 100 MG PO BID, (Reported) Entered as Reported by: LINDA NEVES on 02/07/20 1124 Ergocalciferol (Vitamin D2) (Vitamin D2) 1,250 Mcg Capsule, 1,250 MCG PO WEEK, (Reported) Entered as Reported by: LINDA NEVES on 02/07/20 1124 Fluvoxamine Maleate (Fluvoxamine Maleate) 25 Mg Tablet, 25 MG PO DAILY, (Reported) Entered as Reported by: LINDA NEVES on 02/07/20 1124 Levothyroxine Sodium (Levothyroxine Sodium) 100 Mcg Tablet, 100 MCG PO DAILY, (Reported) Entered as Reported by: LINDA NEVES on 02/07/20 1058 Nystatin (Nystatin) 100 Million Unit Powder.ea., 1 EACH MC BID Prescribed by: JONAS CROWDER on 08/22/21 1755 Olanzapine (Olanzapine) 5 Mg Tablet, 5 MG PO DAILY, (Reported) Entered as Reported by: LINDA NEVES on 02/07/20 1124 Review of Systems Review of Systems Constitutional: see HPI EENTM: no symptoms reported Respiratory: no symptoms reported Cardiovascular: see HPI Gastrointestinal: no symptoms reported Genitourinary: see HPI : No Musculoskeletal: no symptoms reported Skin: no symptoms reported Psychiatric/Neurological: See HPI Hematologic/Lymphatic: No Symptoms Reported Immunological/Allergic: no symptoms reported Past Lhwzsbm-Xwnyda-Ybzeht Hx Patient Social History Tobacco Use?: No Use of E-Cig and/or Vaping dev: No Substance use?: No Alcohol Use?: No Immunizations Up To Date Tetanus Booster (TDap): Less than 5yrs PED Vaccines UTD: No First/Initial COVID19 Vaccinat: 07/2020 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[employer] Seasonal Allergies Seasonal Allergies: Yes Past Medical History Surgery/Hospitalization HX: 04/2021 [facility] FOR PSYCH ISSUES, GALLBLADDER, LT FOOT Surgeries: Yes (D&C, LT FOOT HAMMERTOE) Gallbladder, Orthopedic Respiratory: No Currently Using CPAP: No Currently Using BIPAP: No Cardiac: Yes High Cholesterol, Hypertension Neurological: No Reproductive Disorders: No Female Reproductive Disorders: Denies Sexually Transmitted Disease: No HIV/AIDS: No Genitourinary: Yes Kidney Infection, UTI-Chronic Gastrointestinal: Yes Gastroesophageal Reflux, Hiatal Hernia, Irritable Bowel Musculoskeletal: Yes Arthritis Endocrine: Yes Hypothyroidsim HEENT: No Loss of Vision: Bilateral Hearing Impairment: Denies Cancer: No Psychosocial: Yes Anxiety, Bipolar, Depression Integumentary: No Blood Disorders: No Adverse Reaction/Blood Tranf: No (N/A) Family Medical History Arthritis Cardiovascular disease Cataracts Colon cancer Diabetes mellitus Hypertension Myocardial infarction Parkinson's disease Psychosocial problem Respiratory disorder Thyroid disease Visual disorder Cancer, CAD Under 55 Years Old, Diabetes Physical Exam Vital Signs Vital Signs - First Documented 08/22/21 14:38 Temp 36.1 Pulse 90 Resp 18 B/P (MAP) 133/101 (112) Pulse Ox 97 O2 Delivery Room Air Capillary Refill : Height, Weight, BMI Height: 5'2.00" Weight: 150lbs. 0.0oz. 68.358905sz; 23.00 BMI Method:Stated General Appearance: No Apparent Distress, WD/WN HEENT: PERRL/EOMI, Normal ENT Inspection, Pharynx Normal Neck: Normal Inspection; No JVD Respiratory: Lungs Clear, Normal Breath Sounds, No Accessory Muscle Use Cardiovascular: No Edema, No Murmur, Irregularly Irregular, Other (Sinus arrhythmia on the monitor) Gastrointestinal: Normal Bowel Sounds, Non Tender, Soft Genital/Rectal: Normal Genital Exam; No Tenderness Extremity: Normal Inspection Neurologic/Psychiatric: Alert, Oriented x3, No Motor/Sensory Deficits, Normal Mood/Affect, polls or surveys interviewer II-XII Norm as Tested Skin: Normal Color, Warm/Dry Progress/Results/Core Measures Suspected Sepsis SIRS Temperature: Pulse: 90 Respiratory Rate: 18 Laboratory Tests 08/22/21 15:15: White Blood Count 3.9L Blood Pressure 133 /101 Mean: 112 Laboratory Tests 08/22/21 15:15: Creatinine 0.70, Platelet Count 219, Total Bilirubin 0.6 Results/Orders Lab Results Laboratory Tests Test 08/22/21 15:15 08/22/21 16:25 Range/Units White Blood Count 3.9 L 4.3-11.0 10^3/uL Red Blood Count 4.42 3.80-5.11 10^6/uL Hemoglobin 13.8 11.5-16.0 g/dL Hematocrit 42 35-52 % Mean Corpuscular Volume 96 80-99 fL Mean Corpuscular Hemoglobin 31 25-34 pg Mean Corpuscular Hemoglobin Concent 33 32-36 g/dL Red Cell Distribution Width 13.3 10.0-14.5 % Platelet Count 219 130-400 10^3/uL Mean Platelet Volume 8.6 L 9.0-12.2 fL Immature Granulocyte % (Auto) 0 % Neutrophils (%) (Auto) 56 42-75 % Lymphocytes (%) (Auto) 30 12-44 % Monocytes (%) (Auto) 10 0-12 % Eosinophils (%) (Auto) 2 0-10 % Basophils (%) (Auto) 1 0-10 % Neutrophils # (Auto) 2.2 1.8-7.8 X 10^3 Lymphocytes # (Auto) 1.2 1.0-4.0 X 10^3 Monocytes # (Auto) 0.4 0.0-1.0 X 10^3 Eosinophils # (Auto) 0.1 0.0-0.3 10^3/uL Basophils # (Auto) 0.1 0.0-0.1 10^3/uL Immature Granulocyte # (Auto) 0.0 0.0-0.1 10^3/uL Sodium Level 142 135-145 MMOL/L Potassium Level 4.4 3.6-5.0 MMOL/L Chloride Level 105 98-107 MMOL/L Carbon Dioxide Level 26 21-32 MMOL/L Anion Gap 11 5-14 MMOL/L Blood Urea Nitrogen 15 7-18 MG/DL Creatinine 0.70 0.60-1.30 MG/DL Estimat Glomerular Filtration Rate 91 BUN/Creatinine Ratio 21 Glucose Level 94 70-105 MG/DL Calcium Level 8.6 8.5-10.1 MG/DL Corrected Calcium 8.9 8.5-10.1 MG/DL Magnesium Level 2.2 1.6-2.4 MG/DL Total Bilirubin 0.6 0.1-1.0 MG/DL Aspartate Amino Transf (AST/SGOT) 29 5-34 U/L Alanine Aminotransferase (ALT/SGPT) 24 0-55 U/L Alkaline Phosphatase 70 40-136 U/L Total Protein 6.2 L 6.4-8.2 GM/DL Albumin 3.6 3.2-4.5 GM/DL Thyroid Stimulating Hormone (TSH) 4.64 0.35-4.94 UIU/ML Free Thyroxine 0.90 0.70-1.48 NG/DL Urine Color YELLOW Urine Clarity CLEAR Urine pH 6.0 5-9 Urine Specific [place] 1.020 1.016-1.022 Urine Protein NEGATIVE NEGATIVE Urine Glucose (UA) NEGATIVE NEGATIVE Urine Ketones NEGATIVE NEGATIVE Urine Nitrite NEGATIVE NEGATIVE Urine Bilirubin NEGATIVE NEGATIVE Urine Urobilinogen 0.2 < = 1.0 MG/DL Urine Leukocyte Esterase NEGATIVE NEGATIVE Urine RBC (Auto) NEGATIVE NEGATIVE Urine RBC NONE /HPF Urine WBC 0-2 /HPF Urine Squamous Epithelial Cells 0-2 /HPF Urine Renal Epithelial Cells NONE /HPF Urine Crystals NONE /LPF Urine Bacteria NEGATIVE /HPF Urine Casts NONE /LPF Urine Mucus MODERATE H /LPF Urine Culture Indicated NO My Orders Orders - JONAS SUAREZ MD Ekg Tracing (08/22/21 14:38) Cbc With Automated Diff (08/22/21 14:56) Comprehensive Metabolic Panel (08/22/21 14:56) Magnesium (08/22/21 14:56) Thyroid Stimulating Hormone (08/22/21 14:56) Ua Culture If Indicated (08/22/21 14:56) Ed Iv/Invasive Line Start (08/22/21 14:56) Free T4 (Free Thyroxine) (08/22/21 14:56) Vital Signs/I&O 08/22/21 14:38 Temp 36.1 Pulse 90 Resp 18 B/P (MAP) 133/101 (112) Pulse Ox 97 O2 Delivery Room Air Capillary Refill : Blood Pressure Mean: 112 Progress Note : Progress Note Work-up was unremarkable except for sinus arrhythmia. This does not require any urgent treatment and can be followed as an outpatient. Patient complained of a burning sensation over the perineum but exam was unremarkable. Urinalysis was clean. I have prescribed nystatin powder and advised that she follow-up with a women's health provider if symptoms continue. She does not like to leave the house to go to doctors appointments or any other activities. She admits this may be because of worsening depression. She was advised to discuss this with Quirnio Calvert. ECG Initial ECG Impression Date: Aug 22, 2021 Initial ECG Impression Time: 10:12 Initial ECG Rate: 56 Initial ECG Rhythm: Normal Sinus Comment Sinus arrhythmia with no ST elevation or depression. No abnormal intervals or axis deviation. PVCs additionally noted on the monitor but not on this EKG. Departure Impression Primary Impression: Sinus arrhythmia Additional Impressions: Shakiness Perineal irritation in female Disposition: 01 HOME, SELF-CARE Condition: Stable Departure-Patient Inst. Decision time for Depature: 18:00 Referrals: QUIRINO CALVERT APRN, HOLLY A MD (PCP/Family) Primary Care Physician SHWETA SWEENEY AMARTHA N MD HAMLIN, KARI E MD Patient Instructions: Arrhythmias Add. Discharge Instructions: Continue follow-up care with Quirino Calvert. Discussed your worsening depression with him. Try the nystatin powder for your perineal irritation. If this does not resolve the irritation, consider consultation with a women's health provider. Some [facility]'s health providers are listed below. Your sinus arrhythmia does not require any emergent attention. If it is persistent, you may wish to consult with a underwriting intern. Return to care if you have worsening symptoms. All discharge instructions reviewed with patient and/or family. Voiced understanding. Scripts Nystatin (Nystatin) 100 Million Unit Powder.ea. 1 EACH BID, #60 GM Prov: JONAS SUAREZ MD 08/22/21 JONAS SUAREZ MD Aug 22, 2021 17:53
[2021-08-22] MEDS ORDERED: NYST1POW22 MC (17:55)
[2021-08-22 18:07] VITALS: BP 110/71
== END 2021-08-22 18:07 | disposition home or self-care (01) ==
LOC: EDUNIT# 14:30 → ER 14:31
DX: I49.8 Other specified cardiac arrhythmias (principal); R25.9 Unspecified abnormal involuntary movements; L29.3 Anogenital pruritus, unspecified
CPT/HCPCS: 36415; 80053; 81000; 83735; 84439; 84443; 85025; 93005

== ENCOUNTER 2022-01-13 16:41 | Observation (INO) | payer MEDICARE ==
[~2022-01-13] VITALS: Ht 157.5 cm; Wt 63.2 kg
[~2022-01-13 16:41] MED LIST changes: +NYST1POW22 MC
[2022-01-13 17:34] LABS: BASOPHILS % (AUTO) 1 % (0-10); EOSINOPHILS % (AUTO) 1 % (0-10); HEMATOCRIT 44 % (35-52); HEMOGLOBIN 14.6 g/dL (11.5-16.0); LYMPHOCYTES # (AUTO) 1.2 10^3/uL (1.0-4.0); LYMPHOCYTES % (AUTO) 26 % (12-44); MEAN CORPUSCULAR HEMOGLOBIN 31 pg (25-34); MEAN CORPUSCULAR HGB CONC 33 g/dL (32-36); MEAN CORPUSCULAR VOLUME 94 fL (80-99); MEAN PLATELET VOLUME 8.6 fL (9.0-12.2); MONOCYTES # (AUTO) 0.4 10^3/uL (0.0-1.0); MONOCYTES % (AUTO) 8 % (0-12); NEUTROPHILS % (AUTO) 65 % (42-75); PLATELET COUNT 202 10^3/uL (130-400); WHITE BLOOD COUNT 4.7 10^3/uL (4.3-11.0)
[2022-01-13 17:35] LABS: BILIRUBIN,URINE NEGATIVE (NEGATIVE); CLARITY,URINE CLEAR; COLOR,URINE YELLOW; GLUCOSE, URINE (UA) NEGATIVE (NEGATIVE); KETONES,URINE NEGATIVE (NEGATIVE); LEUKOCYTE ESTERASE ,URINE NEGATIVE (NEGATIVE); NITRITE,URINE NEGATIVE (NEGATIVE); PROTEIN,URINE NEGATIVE (NEGATIVE)
[2022-01-13 17:49] LABS: AMPHETAMINE SCREEN, URINE NEGATIVE (NEGATIVE); BARBITURATE SCREEN URINE NEGATIVE (NEGATIVE); BENZODIAZEPINES SCREEN URINE NEGATIVE (NEGATIVE); CANNABINOID SCREEN, URINE NEGATIVE (NEGATIVE); COCAINE SCREEN URINE NEGATIVE (NEGATIVE); METHADONE STAT NEGATIVE (NEGATIVE); OPIATE SCREEN URINE NEGATIVE (NEGATIVE); OXYCODONE STAT NEGATIVE (NEGATIVE); PROPOXYPHENE STAT NEGATIVE (NEGATIVE); TRICYCLIC ANTIDEPRESSANTS SCRE NEGATIVE (NEGATIVE)
[2022-01-13 17:50] LABS: CHLORIDE 105 MMOL/L (98-107)
[2022-01-13 17:51] LABS: ALBUMIN 3.8 GM/DL (3.2-4.5); POTASSIUM 4.1 MMOL/L (3.6-5.0); SODIUM 142 MMOL/L (135-145)
[2022-01-13 17:52] LABS: CALCIUM 9.4 MG/DL (8.5-10.1)
[2022-01-13 17:53] LABS: GLUCOSE 103 MG/DL (70-105); TOTAL PROTEIN 6.5 GM/DL (6.4-8.2)
[2022-01-13 17:54] LABS: CARBON DIOXIDE 27 MMOL/L (21-32)
[2022-01-13 17:55] LABS: BILIRUBIN,TOTAL 0.6 MG/DL (0.1-1.0)
[2022-01-13 17:57] LABS: BACTERIA,URINE FEW /HPF; CALCIUM OXALATE CRYSTALS,UR LARGE /LPF
[2022-01-13 17:57] LABS: ALKALINE PHOSPHATASE 58 U/L (40-136); CREATININE SERUM 0.81 MG/DL (0.60-1.30); GFR ESTIMATED 76
[2022-01-13 17:58] LABS: BUN/CREATININE RATIO 27
[2022-01-13 18:00] LABS: ALANINE AMINOTRANSFERASE 19 U/L (0-55); SALICYLATE < 5.0 MG/DL (5.0-20.0)
[2022-01-13 18:06] LABS: ACETAMINOPHEN < 10 UG/ML (10-30)
--- NOTE | 2022-01-13 18:39 | ED Psychosocial ---
General Chief Complaint: Suicidal Ideation Risk Stated Complaint: SUICIDAL IDEATION Nursing Triage Note: PT TO RM 8, STATES "I'M HAVING A NERVOUS BREAKDOWN." PT REPORTS SHE HAS A TOOTH INFECTION, DECREASED APPETITE, AND POOR QUALITY OF LIFE LEADING TO SUICIDAL IDEATIONS THAT HAVE BEEN INTERMITTENT FOR THE PAST SEVERAL YEARS. PT REPORTS SHE HAD A PLAN TO "TAKE A BUNCH OF PILLS" TO COMMIT SUICIDE TODAY. PT DAUGHTER AT BEDSIDE, REPORTS SHE CALLED DR. PUENTES WHO ADVISED HER TO BRING PT TO ED. PT HAS HAD MULTIPLE INPATIENT STAYS FOR MENTAL HEALTH. A&OX4, C/O CHRONIC GENERALIZED PAIN. (LOIDA CORONADO RELAY MOTORMAN) History of Present Illness Date Seen by Provider: Jan 13, 2022 Time Seen by Provider: 16:45 Initial Comments Patient is a 76-year-old female who presents to the emergency department for evaluation of suicidal ideation with stated intent to "take a bunch of pills". Patient has a history of suicidality and has had several psychiatric admissions in the past. Patient's daughter is at bedside. Patient states she wants to be placed on hospice and be allowed to . When asked why she feels this way she states that due to her inability to walk and care for herself she wants to . Patient currently takes several psychiatric medications. Daughter states she used to take several more but due to some recent weight loss the medicines were decreased. Patient denies any homicidal ideation or audiovisual hallucination at this time. Denies any drug use, alcohol use, or taking any pills that are not prescribed to her in the recent past. (LOIDA CORONADO RELAY MOTORMAN) Allergies and Home Medications Allergies Coded Allergies: No Known Drug Allergies (Unverified , 02/19/17) Patient Home Medication List Home Medication List Reviewed: Yes (LOIDA CORONADO RELAY MOTORMAN) Dextroamphetamine/Amphetamine (Adderall 10 mg Tablet) 10 Mg Tablet, 10 MG PO DAILY, (Reported) Entered as Reported by: LINDA NEVES on 02/07/20 1058 Divalproex Sodium (Depakote) 125 Mg Tablet.dr, 125 MG PO DAILY, (Reported) Entered as Reported by: LINDA NEVES on 02/07/20 1058 Doxycycline Hyclate (Doxycycline Hyclate) 100 Mg Capsule, 100 MG PO BID, (Reported) Entered as Reported by: LINDA NEVES on 02/07/20 1124 Ergocalciferol (Vitamin D2) (Vitamin D2) 1,250 Mcg Capsule, 1,250 MCG PO WEEK, (Reported) Entered as Reported by: LINDA NEVES on 02/07/20 1124 Fluvoxamine Maleate (Fluvoxamine Maleate) 25 Mg Tablet, 25 MG PO DAILY, (Reported) Entered as Reported by: LINDA NEVES on 02/07/20 1124 Levothyroxine Sodium (Levothyroxine Sodium) 100 Mcg Tablet, 100 MCG PO DAILY, (Reported) Entered as Reported by: LINDA NEVES on 02/07/20 1058 Nystatin (Nystatin) 100 Million Unit Powder.ea., 1 EACH MC BID Prescribed by: JONAS CROWDER on 08/22/21 1755 Olanzapine (Olanzapine) 5 Mg Tablet, 5 MG PO DAILY, (Reported) Entered as Reported by: LINDA NEVES on 02/07/20 1124 Review of Systems Constitutional: no symptoms reported EENTM: no symptoms reported Respiratory: no symptoms reported Cardiovascular: no symptoms reported Gastrointestinal: no symptoms reported Genitourinary: no symptoms reported Musculoskeletal: no symptoms reported Skin: no symptoms reported Psychiatric/Neurological: See HPI (LOIDA CORONADO APRN) Past Igteygj-Tjqhue-Qcelol Hx Patient Social History Tobacco Use?: No Use of E-Cig and/or Vaping dev: No Substance use?: No Alcohol Use?: No (LOIDA CORONADO APRN) Immunizations Up To Date Tetanus Booster (TDap): Less than 5yrs PED Vaccines UTD: No First/Initial COVID19 Vaccinat: 07/2020 Second COVID19 Vaccination Arnie: NONE Third COVID19 Vaccination Date: NONE COVID19 Vaccine 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: [employer] (LOIDA CORONADO APRN) Seasonal Allergies Seasonal Allergies: Yes (LOIDA CORONADO APRN) Past Medical History Surgery/Hospitalization HX: 04/2021 [facility] FOR [facility]YCH ISSUES, GALLBLADDER, LT FOOT Surgeries: Yes (D&C, LT FOOT HAMMERTOE) Gallbladder, Orthopedic Respiratory: No Currently Using CPAP: No Currently Using BIPAP: No Cardiac: Yes High Cholesterol, Hypertension Neurological: No Reproductive Disorders: No Female Reproductive Disorders: Denies Sexually Transmitted Disease: No HIV/AIDS: No Genitourinary: Yes Kidney Infection, UTI-Chronic Gastrointestinal: Yes Gastroesophageal Reflux, Hiatal Hernia, Irritable Bowel Musculoskeletal: Yes Arthritis Endocrine: Yes Hypothyroidsim HEENT: No Loss of Vision: Bilateral Hearing Impairment: Denies Cancer: No Psychosocial: Yes Anxiety, Bipolar, Depression Integumentary: No Blood Disorders: No Adverse Reaction/Blood Tranf: No (N/A) (LOIDA CORONADO APRN) Family Medical History Arthritis Cardiovascular disease Cataracts Colon cancer Diabetes mellitus Hypertension Myocardial infarction Parkinson's disease Psychosocial problem Respiratory disorder Thyroid disease Visual disorder Cancer, CAD Under 55 Years Old, Diabetes (LOIDA CORONADO APRN) Physical Exam Vital Signs - First Documented 01/13/22 16:47 Temp 36.4 Pulse 94 Resp 18 B/P (MAP) 121/83 (96) Pulse Ox 98 O2 Delivery Room Air (GORDO FINNEYA K DO) Capillary Refill : Less Than 3 Seconds (LOIDA CORONADO APRN) Height, Weight, BMI Height: 5'2.00" Weight: 150lbs. 0.0oz. [id number]; 24.00 BMI Method:Stated General Appearance: WD/WN, no apparent distress HEENT: PERRL/EOMI, normal ENT inspection, TMs normal, pharynx normal Neck: non-tender, full range of motion Respiratory: chest non-tender, lungs clear, normal breath sounds, no respir atory distress, no accessory muscle use Cardiovascular: regular rate, rhythm Gastrointestinal: normal bowel sounds, non tender, soft Extremities: normal range of motion, non-tender, normal inspection, no pedal edema Neurologic/Psychiatric: no motor/sensory deficits, alert, normal mood/affect, oriented x 3 Skin: normal color, warm/dry (LOIDA CORONADO APRN) Progress/Results/Core Measures Results/Orders Lab Results Laboratory Tests Test 01/13/22 17:00 01/13/22 17:15 01/13/22 17:20 Range/Units Urine Color YELLOW Urine Clarity CLEAR Urine pH 6.0 5-9 Urine Specific [place] >=1.030 1.016-1.022 Urine Protein NEGATIVE NEGATIVE Urine Glucose (UA) NEGATIVE NEGATIVE Urine Ketones NEGATIVE NEGATIVE Urine Nitrite NEGATIVE NEGATIVE Urine Bilirubin NEGATIVE NEGATIVE Urine Urobilinogen 0.2 < = 1.0 MG/DL Urine Leukocyte Esterase NEGATIVE NEGATIVE Urine RBC (Auto) NEGATIVE NEGATIVE Urine RBC NONE /HPF Urine WBC 5-10 H /HPF Urine Squamous Epithelial Cells NONE /HPF Urine Crystals PRESENT H /LPF Urine Calcium Oxalate Crystals LARGE H /LPF Urine Bacteria FEW H /HPF Urine Casts PRESENT /LPF Urine Hyaline Casts 10-25 H /LPF Urine Mucus MODERATE H /LPF Urine Culture Indicated YES Urine Opiates Screen NEGATIVE NEGATIVE Urine Oxycodone Screen NEGATIVE NEGATIVE Urine Methadone Screen NEGATIVE NEGATIVE Urine Propoxyphene Screen NEGATIVE NEGATIVE Urine Barbiturates Screen NEGATIVE NEGATIVE Ur Tricyclic Antidepressants Screen NEGATIVE NEGATIVE Urine Phencyclidine Screen NEGATIVE NEGATIVE Urine Amphetamines Screen NEGATIVE NEGATIVE Urine Methamphetamines Screen NEGATIVE NEGATIVE Urine Benzodiazepines Screen NEGATIVE NEGATIVE Urine Cocaine Screen NEGATIVE NEGATIVE Urine Cannabinoids Screen NEGATIVE NEGATIVE White Blood Count 4.7 4.3-11.0 10^3/uL Red Blood Count 4.69 3.80-5.11 10^6/uL Hemoglobin 14.6 11.5-16.0 g/dL Hematocrit 44 35-52 % Mean Corpuscular Volume 94 80-99 fL Mean Corpuscular Hemoglobin 31 25-34 pg Mean Corpuscular Hemoglobin Concent 33 32-36 g/dL Red Cell Distribution Width 12.5 10.0-14.5 % Platelet Count 202 130-400 10^3/uL Mean Platelet Volume 8.6 L 9.0-12.2 fL Immature Granulocyte % (Auto) 0 % Neutrophils (%) (Auto) 65 42-75 % Lymphocytes (%) (Auto) 26 12-44 % Monocytes (%) (Auto) 8 0-12 % Eosinophils (%) (Auto) 1 0-10 % Basophils (%) (Auto) 1 0-10 % Neutrophils # (Auto) 3.0 1.8-7.8 10^3/uL Lymphocytes # (Auto) 1.2 1.0-4.0 10^3/uL Monocytes # (Auto) 0.4 0.0-1.0 10^3/uL Eosinophils # (Auto) 0.0 0.0-0.3 10^3/uL Basophils # (Auto) 0.0 0.0-0.1 10^3/uL Immature Granulocyte # (Auto) 0.0 0.0-0.1 10^3/uL Sodium Level 142 135-145 MMOL/L Potassium Level 4.1 3.6-5.0 MMOL/L Chloride Level 105 98-107 MMOL/L Carbon Dioxide Level 27 21-32 MMOL/L Anion Gap 10 5-14 MMOL/L Blood Urea Nitrogen 22 H 7-18 MG/DL Creatinine 0.81 0.60-1.30 MG/DL Estimat Glomerular Filtration Rate 76 BUN/Creatinine Ratio 27 Glucose Level 103 70-105 MG/DL Calcium Level 9.4 8.5-10.1 MG/DL Corrected Calcium 9.6 8.5-10.1 MG/DL Total Bilirubin 0.6 0.1-1.0 MG/DL Aspartate Amino Transf (AST/SGOT) 21 5-34 U/L Alanine Aminotransferase (ALT/SGPT) 19 0-55 U/L Alkaline Phosphatase 58 40-136 U/L Total Protein 6.5 6.4-8.2 GM/DL Albumin 3.8 3.2-4.5 GM/DL Salicylates Level < 5.0 L 5.0-20.0 MG/DL Acetaminophen Level < 10 L 10-30 UG/ML Serum Alcohol < 10 <10 MG/DL Influenza Type A (RT-PCR) Not Detected Not Detecte Influenza Type B (RT-PCR) Not Detected Not Detecte SARS-CoV-2 RNA (RT-PCR) Not Detected Not Detecte (REG,CARMEN K DO) Vital Signs/I&O 01/13/22 01/13/22 01/13/22 16:47 21:25 21:56 Temp 36.4 36.4 Pulse 94 94 97 Resp 18 18 18 B/P (MAP) 121/83 (96) 121/83 148/93 (111) Pulse Ox 98 98 O2 Delivery Room Air Room Air Room Air (REG,CARMEN K DO) Blood Pressure Mean: 96 Progress Progress Note : Progress Note Patient is nontoxic and well-hydrated on exam. No adventitious lung sounds or increased work of breathing noted. Patient is calm lying in the bed and answers all questions appropriately. She does not specifically endorse active SI but states she has felt like she wanted her life to end. She denies any current or historical HI. Medical clearance was obtained after unremarkable labs, negative UDS, and EKG without any acute ischemic change or arrhythmia. Urinalysis obtained which shows very small pyuria and bacteriuria. Will withhold antimicrobial therapy until urine culture results are available. Mental health resources have been consulted to assist with determining next best steps. The mental health screener states patient does not meet criteria for inpatient psychiatric admission. Dr. Puentes, her PCP, called earlier stating if patient did not meet criteria for inpatient psychiatric admission that she would admit her here for observation. I informed her that the patient did not meet criteria for inpatient admission per the mental screener and Dr. Puentes agreed to admit her here overnight for observation. (LOIDA CORONADO APRN) EKG : EKG Time: 17:15 Rate: 87 Rhythm: Normal Sinus Comment Right bundle branch block; no acute ischemic change appreciated (LOIDA CORONADO APRN) Departure Impression Primary Impression: Suicidal ideation Disposition: ADMITTED INPATIENT Condition: Stable Admissions Decision to Admit/Date: Jan 13, 2022 Time/Decision to Admit Time: 20:35 (LOIDA CORONADO APRN) Departure-Patient Inst. Referrals: LUCHO PUENTES MD (PCP/Family) Primary Care Physician Patient Instructions: OUTPT MENTAL HEALTH SERVICES ATTENDING PHYSICIAN NOTE: I WAS PHYSICALLY PRESENT ER PHYSICIAN, BUT I WAS NOT INVOLVED IN ANY DECISION MAKING OR ANY CARE OF THIS PATIENT, AND I AM NOT COLLABORATING PHYSICIAN. (CARMEN FINNEY DO) LOIDA CORONADO APRN Jan 13, 2022 18:39 CARMEN FINNEY DO Jan 13, 2022 22:32
[2022-01-13 21:56] VITALS: BP 148/93
[2022-01-13 23:53] VITALS: BP 141/80
[2022-01-14 04:00] VITALS: BP 141/78
[2022-01-14 08:00] VITALS: BP 142/98
[2022-01-14 08:27] VITALS: BP 142/88
--- NOTE | 2022-01-14 09:15 | History & Physical ---
History of Present Illness History of Present Illness Reason for visit/HPI Pt is a 76 y/o female who is known to this keno writer/runner from clinic and previous hospitalizations. She presented to the ER after vocalizing to her family that she was suicidal, had a plan to overdose on medications. Her family was instructed to take her to the ER - she was still vocalizing a desire to be or placed on hospice and a psychiatric evaluation was performed. The psych consult stated that since the patient vocalized a desire to not go to the psychiatric unit and refused help, there was nothing more they could offer. This morning, the patient vocalized that she was still suicidal and had "pills stashed around the house she could take" should she be released to go home. She vocalized that she feels like there is something wrong, has anxiety attacks, feels hot and cold at times and then has tremors. Date of Admission Jan 13, 2022 at 20:34 Date Seen by a Provider: Jan 14, 2022 Time Seen by a Provider: 09:00 Attending Physician Lucho Puentes MD Admitting Physician Admitting Physician: Lucho Puentes MD Attending Physician: Lucho Puentes MD Consult Allergies and Home Medications Allergies Coded Allergies: No Known Drug Allergies (Unverified , 02/19/17) Patient Home Medication List Home Medication List Reviewed: Yes Cholecalciferol (Vitamin D3) (Vitamin D3) 50 Mcg (2000 Unit) Capsule, 50 MCG PO DAILY, (Reported) Entered as Reported by: RAMON RIVAS on 01/14/221502 Last Action: Converted Escitalopram Oxalate (Escitalopram Oxalate) 20 Mg Tablet, 20 MG PO DAILY, (Reported) Entered as Reported by: RAMON RIVAS on 01/14/221502 Last Action: Converted Levothyroxine Sodium (Levothyroxine Sodium) 75 Mcg Tablet, 75 MCG PO DAILY, (Reported) Entered as Reported by: RAMON RIVAS on 01/14/221502 Last Action: Continued Melatonin (Melatonin) 5 Mg Tablet, 5 MG PO HS, (Reported) Entered as Reported by: RAMON RIVAS on 01/14/221502 Last Action: Converted Mirtazapine (Mirtazapine) 15 Mg Tablet, 7.5 MG PO HS, (Reported) Entered as Reported by: RAMON RIVAS on 11/22/22 1503 Last Action: Reviewed Pantoprazole Sodium (Pantoprazole Sodium) 40 Mg Tablet.dr, 40 MG PO DAILY, (Reported) Entered as Reported by: RAMON RIVAS on 01/14/22 1503 Last Action: Continued Discontinued Medications Dextroamphetamine/Amphetamine (Adderall 10 mg Tablet) 10 Mg Tablet, 10 MG PO DAILY, (Reported) Discontinued Reason: No Longer Taking Entered as Reported by: LINDA NEVES on 02/07/20 105 Last Action: Discontinued Divalproex Sodium (Depakote) 125 Mg Tablet.dr, 125 MG PO DAILY, (Reported) Discontinued Reason: No Longer Taking Entered as Reported by: LINDA NEVES on 02/07/201057 Last Action: Discontinued Doxycycline Hyclate (Doxycycline Hyclate) 100 Mg Capsule, 100 MG PO BID, (Reported) Discontinued Reason: No Longer Taking Entered as Reported by: LINDA NEVES on 02/07/201123 Last Action: Discontinued Ergocalciferol (Vitamin D2) (Vitamin D2) 1,250 Mcg Capsule, 1,250 MCG PO WEEK, (Reported) Discontinued Reason: No Longer Taking Entered as Reported by: LINDA NEVES on 02/07/201123 Last Action: Discontinued Fluvoxamine Maleate (Fluvoxamine Maleate) 25 Mg Tablet, 25 MG PO DAILY, (Reported) Discontinued Reason: No Longer Taking Entered as Reported by: LINDA NEVES on 02/07/201123 Last Action: Discontinued Levothyroxine Sodium (Levothyroxine Sodium) 100 Mcg Tablet, 100 MCG PO DAILY, (Reported) Discontinued Reason: No Longer Taking Entered as Reported by: LINDA NEVES on 02/07/201057 Last Action: Discontinued Nystatin (Nystatin) 100 Million Unit Powder.ea., 1 EACH MC BID Discontinued Reason: No Longer Taking Prescribed by: JONAS CROWDER on 08/22/21 1755 Last Action: Discontinued Olanzapine (Olanzapine) 5 Mg Tablet, 5 MG PO DAILY, (Reported) Discontinued Reason: No Longer Taking Entered as Reported by: LINDA NEVES on 02/07/201123 Last Action: Discontinued Past Pzqxnts-Thoael-Aayfnf Hx Patient Social History Marrital Status: Number of Children: 1 Number of living children: 1 Living Status: lives at home with in [place] Employed/Student: retired Tobacco Use?: No Smoking Status: Never a Smoker Smokeless Tobacco Frequency: Never a User Use of E-Cig and/or Vaping dev: No Use of E-Cig and/or Vaping [place]: Never a User Substance use?: No Alcohol Use?: No Alcohol Frequency: Rarely Pt feels they are or have been: No Immunizations Up To Date Date of Influenza Vaccine: Feb 20, 2019 First/Initial COVID19 Vaccinat: 07/2020 Second COVID19 Vaccination Arnie: NONE Tetanus Booster (TDap): More Than 5 Years Hepatitis A: No Hepatitis B: No PED Vaccines UTD: No Date of Pneumonia Vaccine: Dec 04, 2017 Seasonal Allergies Seasonal Allergies: Yes Current Status status: No Advance Directives: Unable to obtain Communicates: Verbally Primary Language: Panamanian Preferred Spoken Language: Panamanian Is interpretation needed?: No Sensory deficits: Vision impairment Implanted or Applied Medical D: None Past Medical History Surgeries: Gallbladder, Orthopedic Currently Using CPAP: No Currently Using BIPAP: No High Cholesterol, Hypertension Sexually Transmitted Disease: No HIV/AIDS: No Kidney Infection, UTI-Chronic Gastroesophageal Reflux, Hiatal Hernia, Irritable Bowel Arthritis Hypothyroidsim Loss of Vision: Bilateral Hearing Impairment: Denies Anxiety, Bipolar, Depression Blood Disorders: No Adverse Reaction/Blood Tranf: No (N/A) Family Medical History Reviewed Nursing Family Hx Arthritis Cardiovascular disease Cataracts Colon cancer Diabetes mellitus Hypertension Myocardial infarction Parkinson's disease Psychosocial problem Respiratory disorder Thyroid disease Visual disorder Heart Disease, Cancer, CAD Under 55 Years Old, Diabetes, Stroke, Other Conditions/Hx (parkinson's disease (father), cerebral aneurysym (mother)) Review of Systems Constitutional: No chills, No diaphoresis, No dizziness, No fever; malaise, weakness, weight loss EENTM: other (dental disease/pain); No hearing loss Respiratory: No cough, No dyspnea on exertion, No orthopnea, No short of breath Cardiovascular: palpitations; No vascular heart diseas Gastrointestinal: No abdominal pain, No constipation; diarrhea, loss of appetite; No nausea Genitourinary: frequency Musculoskeletal: No back pain, No muscle pain; muscle weakness Skin: No lesions, No rash Psychiatric/Neurological: Anxiety, Depressed, Tremors (per patient report), Weakness All Other Systems Reviewed Negative Unless Noted: Yes Physical Exam Vital Signs Vital Signs - First Documented 01/13/22 16:47 Temp 36.4 Pulse 94 Resp 18 B/P (MAP) 121/83 (96) Pulse Ox 98 O2 Delivery Room Air Capillary Refill : Less Than 3 Seconds Height, Weight, BMI Height: 5'2.00" Weight: 150lbs. 0.0oz. [id number]; 25.47 BMI Method:Stated General Appearance: Mild Distress (due to anxiety), Thin HEENT: PERRL/EOMI, Other (poor dental health, broken teeth, caries) Neck: Full Range of Motion, Non Tender, Supple, Other (no lymphadenopathy) Respiratory: Chest Non Tender, Lungs Clear, Normal Breath Sounds, No Accessory Muscle Use, No Respiratory Distress Cardiovascular: Other (irregular rhythm, tachycardia) Gastrointestinal: Normal Bowel Sounds, Non Tender, Soft Rectal: Deferred Extremity: Normal Capillary Refill, Non Tender, No Calf Tenderness, No Pedal Edema Neurologic/Psychiatric: Alert, Oriented x3, Other (flat affect, irritable, short distracted answers) Skin: Normal Color, Warm/Dry Lymphatic: No Adenopathy Assessment/Plan Assessment and Plan Suicidal ideation with plan Chronic bipolar depression Anxiety Anorexia Hypothyroidism Self neglect Palpitations Tremors PVC's Consult to social media intern Consult to cardiology due to frequent PVC's for recommendations. Check TSH, Free T4, Total T3, TPO Check vitamin B12, folate, iron panel, and lytes - due to self neglect with anorexia and appearance of dehydration. Discussed with patient and her family - she will need to be sent to assisted living or a half-way for strengthening, management, and plans for outpatient physical therapy. Admission Diagnosis Suicidal ideation with plan Chronic bipolar depression Anxiety Anorexia Hypothyroidism Self neglect Palpitations Tremors Admission Status: Observation LUCHO PUENTES MD Jan 14, 2022 09:15
[2022-01-14] MEDS ORDERED: CATHETER FLUSH 10 ML SYR IVP PRN (09:45)
[2022-01-14] MEDS ORDERED: ALPRAZolam 0.25 MG (XANAX) TAB PO ONE (09:45)
[2022-01-14 09:54] LABS: MAGNESIUM 2.1 MG/DL (1.6-2.4)
[2022-01-14] MEDS: NS IV 1000 ML 1,000 ML IV SCH ×2 (10:02→23:24)
[2022-01-14 10:15] LABS: FREE T4 (FREE THYROXINE) 0.96 NG/DL (0.70-1.48)
[2022-01-14 12:00] VITALS: BP 121/70
--- NOTE | 2022-01-14 12:05 | Consultation-Cardiology ---
HPI-Cardiology Cardiology Consultation Date of Consultation 01/14/22 Date of Admission Time Seen by Provider: 08:00 Indication: Frequent premature atrial contractions HPI 76 year old female with history of hypertension, hypothyroidism, bipolar depression, anxiety, IBS, Hiatal Hernia, and GERD who presented to the ED over night for SI with plan. She was admitted for psychiatric observation and cardiology was consulted after patient was thought to have frequent PAC's by internal medicine team. Patient has prior history of hypertension but has no recent history after significant weight loss. She has no other significant cardiovascular disease and does not see a reconciliation clerk at this time. She denies chest pain. She does report having occasional palpitations at home that last up to a couple minutes at a time. She is not having palpitations currently. She has chronic weakness, fatigue, dyspnea with exertion and reports she is very inactive at home. Home Medications & Allergies Allergies: Coded Allergies: No Known Drug Allergies (Unverified , 02/19/17) Home Medication List Reviewed: Yes ALT-Yhluql-Bntvun Hx Patient Social History Marital Status: single Smoking Status: Never a Smoker 2nd Hand Smoke Exposure: No Recent Hopitalizations: No Have you traveled recently?: No Alcohol Use?: No Immunizations Up To Date Tetanus Booster (TDap): Less than 5yrs Date of Pneumonia Vaccine: Dec 04, 2017 Date of Influenza Vaccine: Feb 20, 2019 Past Medical History Discussed below Family Medical History Significant Family History: Cancer, CAD Under 55 Years Old, Diabetes Family History: Arthritis Cardiovascular disease Cataracts Colon cancer Diabetes mellitus Hypertension Myocardial infarction Parkinson's disease Psychosocial problem Respiratory disorder Thyroid disease Visual disorder Review of Systems-General Review of Systems Constitutional: see HPI, malaise, weakness EENTM: No blurred vision, No vision loss Respiratory: see HPI, dyspnea on exertion (chronic); No short of breath, No wheezing Cardiovascular: see HPI; No chest pain, No edema; palpitations (at home, none currently); No syncope, No vascular heart diseas Gastrointestinal: no symptoms reported; No abdominal pain, No constipation, No nausea, No vomiting Genitourinary: No dysuria, No frequency Musculoskeletal: no symptoms reported Skin: no symptoms reported Psychiatric/Neurological: Anxiety, Depressed, Emotional Problems; Denies Headache, Denies Numbness, Denies Tingling; Weakness (Chronic) Reviewed Test Results Reviewed Test Results Lab Laboratory Tests Test 01/13/22 17:00 01/13/22:15 01/13/22 17:20 01/14/22 09:28 Range/Units Urine Color YELLOW Urine Clarity CLEAR Urine pH 6.0 5-9 Urine Specific Shaw >=1.030 1.016-1.022 Urine Protein NEGATIVE NEGATIVE Urine Glucose (UA) NEGATIVE NEGATIVE Urine Ketones NEGATIVE NEGATIVE Urine Nitrite NEGATIVE NEGATIVE Urine Bilirubin NEGATIVE NEGATIVE Urine Urobilinogen 0.2 < = 1.0 MG/DL Urine Leukocyte Esterase NEGATIVE NEGATIVE Urine RBC (Auto) NEGATIVE NEGATIVE Urine RBC NONE /HPF Urine WBC 5-10 H /HPF Urine Squamous Epithelial Cells NONE /HPF Urine Crystals PRESENT H /LPF Urine Calcium Oxalate Crystals LARGE H /LPF Urine Bacteria FEW H /HPF Urine Casts PRESENT /LPF Urine Hyaline Casts 10-25 H /LPF Urine Mucus MODERATE H /LPF Urine Culture Indicated YES Urine Opiates Screen NEGATIVE NEGATIVE Urine Oxycodone Screen NEGATIVE NEGATIVE Urine Methadone Screen NEGATIVE NEGATIVE Urine Propoxyphene Screen NEGATIVE NEGATIVE Urine Barbiturates Screen NEGATIVE NEGATIVE Ur Tricyclic Antidepressants Screen NEGATIVE NEGATIVE Urine Phencyclidine Screen NEGATIVE NEGATIVE Urine Amphetamines Screen NEGATIVE NEGATIVE Urine Methamphetamines Screen NEGATIVE NEGATIVE Urine Benzodiazepines Screen NEGATIVE NEGATIVE Urine Cocaine Screen NEGATIVE NEGATIVE Urine Cannabinoids Screen NEGATIVE NEGATIVE White Blood Count 4.7 4.3-11.0 10^3/uL Red Blood Count 4.69 3.80-5.11 10^6/uL Hemoglobin 14.6 11.5-16.0 g/dL Hematocrit 44 35-52 % Mean Corpuscular Volume 94 80-99 fL Mean Corpuscular Hemoglobin 31 25-34 pg Mean Corpuscular Hemoglobin Concent 33 32-36 g/dL Red Cell Distribution Width 12.5 10.0-14.5 % Platelet Count 202 130-400 10^3/uL Mean Platelet Volume 8.6 L 9.0-12.2 fL Immature Granulocyte % (Auto) 0 % Neutrophils (%) (Auto) 65 42-75 % Lymphocytes (%) (Auto) 26 12-44 % Monocytes (%) (Auto) 8 0-12 % Eosinophils (%) (Auto) 1 0-10 % Basophils (%) (Auto) 1 0-10 % Neutrophils # (Auto) 3.0 1.8-7.8 10^3/uL Lymphocytes # (Auto) 1.2 1.0-4.0 10^3/uL Monocytes # (Auto) 0.4 0.0-1.0 10^3/uL Eosinophils # (Auto) 0.0 0.0-0.3 10^3/uL Basophils # (Auto) 0.0 0.0-0.1 10^3/uL Immature Granulocyte # (Auto) 0.0 0.0-0.1 10^3/uL Sodium Level 142 135-145 MMOL/L Potassium Level 4.1 3.6-5.0 MMOL/L Chloride Level 105 98-107 MMOL/L Carbon Dioxide Level 27 21-32 MMOL/L Anion Gap 10 5-14 MMOL/L Blood Urea Nitrogen 22 H 7-18 MG/DL Creatinine 0.81 0.60-1.30 MG/DL Estimat Glomerular Filtration Rate 76 BUN/Creatinine Ratio 27 Glucose Level 103 70-105 MG/DL Calcium Level 9.4 8.5-10.1 MG/DL Corrected Calcium 9.6 8.5-10.1 MG/DL Total Bilirubin 0.6 0.1-1.0 MG/DL Aspartate Amino Transf (AST/SGOT) 21 5-34 U/L Alanine Aminotransferase (ALT/SGPT) 19 0-55 U/L Alkaline Phosphatase 58 40-136 U/L Total Protein 6.5 6.4-8.2 GM/DL Albumin 3.8 3.2-4.5 GM/DL Salicylates Level < 5.0 L 5.0-20.0 MG/DL Acetaminophen Level < 10 L 10-30 UG/ML Serum Alcohol < 10 <10 MG/DL Influenza Type A (RT-PCR) Not Detected Not Detecte Influenza Type B (RT-PCR) Not Detected Not Detecte SARS-CoV-2 RNA (RT-PCR) Not Detected Not Detecte Magnesium Level 2.1 1.6-2.4 MG/DL Thyroid Stimulating Hormone (TSH) 9.23 H 0.35-4.94 UIU/ML Free Thyroxine 0.96 0.70-1.48 NG/DL Physical Exam Physical Exam Vital Signs Vital Signs - First Documented 01/13/22 16:47 Temp 36.4 Pulse 94 Resp 18 B/P (MAP) 121/83 (96) Pulse Ox 98 O2 Delivery Room Air Capillary Refill : Less Than 3 Seconds Height, Weight, BMI Height: 5'2.00" Weight: 150lbs. 0.0oz. 68.529006mo; 25.47 BMI Method:Stated General Appearance: No Apparent Distress, Anxious Eyes: Bilateral Eye PERRL, Bilateral Eye EOMI HEENT: PERRL/EOMI Neck: Non Tender, Supple; No Lymphadenopathy (L), No Lymphadenopathy (R), No Thyromegaly Respiratory: Chest Non Tender, Lungs Clear, Normal Breath Sounds, No Accessory Muscle Use, No Respiratory Distress Cardiovascular: Other (Sinus rhythm with frequent premature beats on auscultation. 2+ radial pulses) Gastrointestinal: Normal Bowel Sounds, Non Tender, Soft Back: Normal Inspection, No CVA Tenderness Extremity: Normal Capillary Refill, Non Tender, No Calf Tenderness, No Pedal Edema Neurologic/Psychiatric: Alert, Oriented x3, No Motor/Sensory Deficits, Depre ssed Affect (mild) Skin: Normal Color, Warm/Dry Lymphatic: No Adenopathy A/P-Cardiology Admission Diagnosis Frequent atrial premature contractions w/ wandering atrial pacemaker on EKG Hypertension Generalized fatigue/weakness/dyspnea with exertion Hypothyroidism Pyuria Suicidal ideation with plan anxiety Chronic bipolar depression Assessment/Plan Frequent atrial premature contractions/ wandering atrial pacemaker seen on EKG -will evaluate for secondary causes such as hypoxemia, poorly controlled hypothyroidism, and electrolyte disturbances -will start low dose CCB at this time and evaluate with echo -Continue telemetry -Avoid Beta Blockers due to patients depression and SI. Hypertension -Mild at this time (142/8 mmHg) and likely physiologic response to stress. Monitor for now. Generalized fatigue/weakness/dyspnea with exertion -Ordering Echo as part of cardiac work-up to assess EF. -Seems likely it is due to deconditioning as patient reports being very inactive at home. Hypothyroidism -History of hypothyroidism treated with Levothyroxine. Uncertain what does she is one at this time. TSH today of 9.23 and Free T4 of 0.96. Total T3 pending. -Patient's TSH is above goal of 2.5 and may benefit from a higher dose of levothyroxine. Pyuria -Patient has history of chronic UTI's. Not symptomatic at this time and not currently on abx treatment. Will be assessed further at this time before initiation of treatment. Suicidal ideation with plan anxiety Chronic bipolar depression -Mental health is being managed by medicine at this time. Will avoid Beta blockers as stated above. Supervisory-Addendum Brief Verification & Attestation Participated in pt care: history, MDM, physical Personally performed: exam, history, MDM, supervision of care Care discussed with: Medical Student Procedures: n/a Results interpretation: Verified all documentation Verification and Attestation of Medical Student E/M Service A medical student performed and documented this service in my presence. I reviewed and verified all information documented by the medical student and made modifications to such information, when appropriate. I personally performed the physical exam and medical decision making. Patient was seen and evaluated I interviewed and examined the patient Review of her EKG showed frequent atrial premature contractions/wandering atrial pacemaker, no acute ischemic changes Evaluate secondary causes such as hypoxemia or hypothyroidism. Starting low- dose calcium channel blockers, patient cannot tolerate beta-tomasa due to underlying severe depression and suicidal ideation. Mumtaz Baird, Jan 14, 2022,15:45 ELIZABETH ROSALES Jan 14, 2022 12:05 MUMTAZ BAIRD MD Jan 14, 2022 15:47
[2022-01-14] MEDS ORDERED: MIRT-68 PO (15:03)
[2022-01-14] MEDS ORDERED: LEVO75TA6 PO (15:03)
[2022-01-14] MEDS ORDERED: MELA5TAB14 PO (15:03)
[2022-01-14] MEDS ORDERED: CHOL200074 PO (15:03)
[2022-01-14] MEDS ORDERED: ESCI20TA39 PO (15:03)
[2022-01-14] MEDS ORDERED: PANT40TA52 PO (15:03)
[2022-01-14 15:13] VITALS: BP 98/55
[2022-01-14 19:33] VITALS: BP 92/55
[2022-01-15] VITALS (8 sets, daily range): BP systolic 96–134; BP diastolic 61–89
[2022-01-15] MEDS: VITAMIN D3 25 MCG (1,000 UNITS) TABLET PO SCH (09:13)
[2022-01-15] MEDS: PANTOPRAZOLE 40 MG (PROTONIX) TAB PO SCH (09:13)
[2022-01-15] MEDS: LEVOTHYROXINE 75 MCG (LEVOTHROID) TABLET PO SCH (09:18)
--- NOTE | 2022-01-15 11:33 | Physical Therapy Evaluation ---
PT Evaluation-General Medical Diagnosis Admission Date Jan 13, 2022 at 20:34 Medical Diagnosis: Suicidal Ideation Onset Date: Jan 13, 2022 Therapy Diagnosis Therapy Diagnosis: Debility Height/Weight Height (Feet): 5 Height (Inches): 2.00 Weight (Pounds): 150 Weight (Ounces): 0.0 Precautions Precautions/Isolations: Fall Prevention, Standard Precautions Weight Bear Status Right Lower Extremity: Right Full Weight Bearing Left Lower Extremity: Left Full Weight Bearing Referral Physician: Deloris Reason for Referral: Evaluation/Treatment Medical History Additional Medical History Surgery/Hospitalization HX: 04/2021 [facility] FOR PSYCH ISSUES, GALLBLADDER, LT FOOT Surgeries: Yes (D&C, LT FOOT HAMMERTOE) Gallbladder, Orthopedic Respiratory: No Currently Using CPAP: No Currently Using BIPAP: No Cardiac: Yes High Cholesterol, Hypertension Neurological: No Reproductive Disorders: No Female Reproductive Disorders: Denies Sexually Transmitted Disease: No HIV/AIDS: No Genitourinary: Yes Kidney Infection, UTI-Chronic Gastrointestinal: Yes Gastroesophageal Reflux, Hiatal Hernia, Irritable Bowel Musculoskeletal: Yes Arthritis Endocrine: Yes Hypothyroidsim HEENT: No Loss of Vision: Bilateral Hearing Impairment: Denies Cancer: No Psychosocial: Yes Anxiety, Bipolar, Depression Integumentary: No Blood Disorders: No Adverse Reaction/Blood Tranf: No (N/A) Reviewed History: Yes Social History Home: Single Level Current Living Status: Spouse Entry Into Home: Stairs With Railing PT Steps Into Home: 4 Prior Prior Level of Function SCALE: Activities may be completed with or without assistive devices. 9-Iilwisqjwo-ibhtzsw completes the activity by him/herself with no assistance from a helper. 5-Set-up or Clean-up Assistance-helper sets up or cleans up; patient completes activity. [place] assists only prior to or following the activity. 4-Supervision or Touching Assistance-helper provides verbal cues and/or touching/steadying and/or contact guard assistance as patient completes activity. Assistance may be provided throughout the activity or intermittently. 3-Partial/Moderate Assistance-helper does LESS THAN HALF the effort. [place] lifts, holds or supports trunk or limbs, but provides less than half the effort. 2-Substantial/Maximal Assistance-helper does MORE THAN HALF the effort. [place] lifts or holds trunk or limbs and provides more than half the effort. 3-Xrpyvctfy-xbpjca does ALL the effort. Patient does none of the effort to complete the activity. Or, the assistance of 2 or more helpers is required for the patient to complete the activity. If activity was not attempted, code reason: 7-Patient Refused. 9-Not Applicable-not attempted and the patient did not perform the activity before the current illness, exacerbation or injury. 10-Not Attempted due to Environmental Limitations-(lack of equipment, weather restraints, etc.). 88-Not Attempted due to Medical Conditions or Safety Concerns. Bed Mobility: 6 Transfers (B,C,W/C): 6 Gait: 6 Stairs: 6 Indoor Mobility (Ambulation): Independent Stairs: Independent Prior Devices Use: Walker PT Evaluation-Current Subjective Patient in bed pre-tx, reports pain 2/10 in neck, agrees to PT. Pt/Family Goals Return home to independence. Objective Patient Orientation: Person, Place, Situation Attachments: IV ROM/Strength ROM Lower Extremities BLE grossly WNL Strength Lower Extremities BLE grossly 5/5 except 4+ hip flexion Neuromuscular (Tone, Coordination, Reflexes) Coordination intact Sensory Vision: Functional Hearing: Functional Sensation Right Lower Extremit: Intact Sensation Left Lower Extremity: Intact Transfers Roll Left to Right (QC): 4 Sit to Lying (QC): 4 Lying to Sitting/Side of Bed(Q: 4 Sit to Stand (QC): 4 Chair/Cce-zi-Psttf Xfer(QC): 4 SBA Gait Does the Patient Walk?: Yes Mode of Locomotion: Walk Anticipated Mode of Locomotion: Walk Walk 10 feet (QC): 4 Walk 50 ft with 2 Turns(QC): 4 Walk 150 ft (QC): 4 Distance: 300' Gait Assistive Device: FWW Comments/Gait Description SBA just moving IV pole, Patient walks with slow gait speed, good step length, good foot clearance. Balance Sitting Static: Normal Sitting Dynamic: Normal Standing Static: Normal Standing Dynamic: Normal Treatment Ambulation Assessment/Needs Patient has good strength and is SBA for bed mobility, transfers, and ambulation. Patient in recliner with chair alarm on, tray, nurse call, phone, all needs met. Rehab Potential: Good PT Tank Riveter Goals Tank Riveter Goals PT Longterm Goals Time Frame: Jan 22, 2022 Roll Left & Right (QC): 6 Sit to Lying (QC): 6 Lying-Sitting on Side/Bed(QC): 6 Sit to Stand (QC): 6 Chair/Ywl-hm-Hpqww Xfer(QC): 6 Toilet Transfer (QC): 6 Walk 10 feet (QC): 6 Walk 50ft with 2 Turns (QC): 6 Walk 150 ft (QC): 6 PT Plan Problem List Problem List: Activity Tolerance, Functional Strength, Safety, Balance, Gait, Transfer, Bed Mobility, ROM Treatment/Plan Treatment Plan: Continue Plan of Care Treatment Plan: Bed Mobility, Education, Functional Activity Aníbal, Functional Strength, Gait, Safety, Therapeutic Exercise, Transfers Treatment Duration: Jan 22, 2022 Frequency: 6 times per week Estimated Hrs Per Day: .25 hour per day Patient and/or Family Agrees t: Yes Safety Risks/Education Patient Education: Gait Training, Transfer Techniques, Correct Positioning, Safety Issues Teaching Recipient: Patient Teaching Methods: Demonstration, Discussion Response to Teaching: Reinforcement Needed Discharge Recommendations Plan Patient will perform bed mobility and transfer training, balance and endurance training, gait training and functional strengthening in order to be independent at home. Therapy Discharge Recommendati: Home & Family Time Time In: 1058 Time Out: 1113 DATE: Jan 15, 2022 Total Billed Treatment Time: 15 Total Billed Treatment 1 visit CHERRY HANSEN PT Jan 15, 2022 11:33
--- NOTE | 2022-01-15 11:38 | Progress Note - Cardiology ---
Cardiology SOAP Progress Note Subjective: Sitting up in bed No c/o CP or SOB or palpitations States she has had some dizziness, but feels this is chronic and unchanged Objective: I&O/Vital Signs 01/15/22 01/15/22 01/15/22 01/15/22 00:04 01:00 04:58 07:00 Temp 36.2 36.4 Pulse 82 79 55 90 Resp 18 18 B/P (MAP) 121/77 (92) 120/70 (87) Pulse Ox 97 97 O2 Delivery Room Air Room Air 01/15/22 01/15/22 01/15/22 01/15/22 07:24 08:00 08:42 09:59 Temp 36.4 36.6 Pulse 86 92 83 Resp 18 18 B/P (MAP) 110/61 (77) 107/66 (80) 96/64 (75) Pulse Ox 99 99 96 O2 Delivery Room Air Room Air Room Air 01/15/22 00:00 Intake Total 940 ml Output Total 500 ml Balance 440 ml Weight (Pounds): 150 Weight (Ounces): 0.0 Weight (Calculated Kilograms): 68.529859 Constitutional: AAO x 3, well-developed, other (thin) Respiratory: No accessory muscle use, No respiratory distress; chest expansion is symmetric, chest is bilaterally symmetric, lungs clear to auscultation Cardiovascular: regular rate-rhythm; No JVD; S1 and S2 Gastrointestional: No tender; soft, audible bowel sounds Extremities: no lower extremity edema bilateral Neurologic/Psychiatric: grossly intact (moves all extremities) Skin: No rash on exposed areas, No ulcerations on exposed areas Results/Procedures: Labs Microbiology 01/13/22 Urine Culture - Preliminary, Resulted Probable Enterococcus Species A/P: Assessment: Frequent atrial premature contractions/ wandering atrial pacemaker seen on EKG -will evaluate for secondary causes such as hypoxemia, poorly controlled hypothyroidism, and electrolyte disturbances -continue low dose CCB started by Dr. Baird -Continue telemetry -Avoid Beta Blockers due to patients depression and SI. - Echocardiogram of 01-14-[address] Baird showed LVEF 65-70%. LA mod dilated. PASP 30-35 mmHg Hypertension - controlled - episodes of somewhat low BP, albeit asymptomatic Generalized fatigue/weakness/dyspnea with exertio -Seems likely it is due to deconditioning as patient reports being very inactive at home. Hypothyroidism -History of hypothyroidism treated with Levothyroxine. - TSH 01-14-22 of 9.23. - Management per medical services H/O chronic UTI Suicidal ideation with plan anxiety Chronic bipolar depression -Mental health is being managed by medical services at this time. Will avoid Beta blockers as stated above. Plan: Continue current regimen Adjust Cardizem CD as indicated/tolerated Management of hypothyroidism as per medical services Management of depression/suicidal ideations as per medical services We have reviewed Dr. Baird's previous notes JEANNA FARFAN Jan 15, 2022 11:38
[2022-01-15] MEDS: NS IV 1000 ML 1,000 ML IV SCH (12:09)
[2022-01-15] MEDS ORDERED: cefTRIAXone 1 GM PRE-MIX 50 ML IV NR (15:00)
--- NOTE | 2022-01-15 16:58 | Progress Note - Cardiology ---
Cardiology SOAP Progress Note Subjective: No cp or palp or syncope or shortness of breath No n/v/d No focal weakness Objective: I&O/Vital Signs 01/15/22 01/15/22 01/15/22 01/15/22 04:58 07:00 07:24 08:00 Temp 36.4 36.4 Pulse 55 90 86 Resp 18 18 B/P (MAP) 120/70 (87) 110/61 (77) Pulse Ox 97 99 99 O2 Delivery Room Air Room Air Room Air 01/15/22 01/15/22 01/15/22 01/15/22 08:42 09:59 11:42 13:00 Temp 36.6 36.6 Pulse 92 83 82 76 Resp 18 20 B/P (MAP) 107/66 (80) 96/64 (75) 97/68 (78) Pulse Ox 96 98 O2 Delivery Room Air Room Air 01/15/22 00:00 Intake Total 940 ml Output Total 500 ml Balance 440 ml Weight (Pounds): 150 Weight (Ounces): 0.0 Weight (Calculated Kilograms): 68.059610 Constitutional: AAO x 3, well-developed, other (thin) Respiratory: No accessory muscle use, No respiratory distress; chest expansion is symmetric, chest is bilaterally symmetric, lungs clear to auscultation Cardiovascular: regular rate-rhythm; No JVD; S1 and S2 Gastrointestional: No tender; soft, audible bowel sounds Extremities: no lower extremity edema bilateral Neurologic/Psychiatric: grossly intact (moves all extremities) Skin: No rash on exposed areas, No ulcerations on exposed areas Results/Procedures: Labs Microbiology 01/13/22 Urine Culture - Preliminary, Resulted Enterococcus faecalis Laboratory Tests 01/13/22 17:15 A/P: Assessment: Frequent atrial premature contractions/ wandering atrial pacemaker seen on EKG -will evaluate for secondary causes such as hypoxemia, poorly controlled hypothyroidism, and electrolyte disturbances -continue low dose CCB started by Dr. Baird -Continue telemetry -Avoid Beta Blockers due to patients depression and SI. - Echocardiogram of 01-14-[address] Baird showed LVEF 65-70%. LA mod dilated. PASP 30-35 mmHg Hypertension - controlled - episodes of somewhat low BP, albeit asymptomatic Generalized fatigue/weakness/dyspnea with exertio -Seems likely it is due to deconditioning as patient reports being very inactive at home. Hypothyroidism -History of hypothyroidism treated with Levothyroxine. - TSH 22 of 9.23. - Management per medical services H/O chronic UTI Suicidal ideation with plan anxiety Chronic bipolar depression -Mental health is being managed by medical services at this time. Will avoid Beta blockers as stated above. Plan: Continue current regimen Adjust Cardizem as indicated/tolerated Management of hypothyroidism as per medical services Management of depression/suicidal ideations as per Medical services We have reviewed Dr. Baird's previous notes KVNG PANDA MD FACP [facility] CCDS Jan 15, 2022 16:58
--- NOTE | 2022-01-15 18:37 | Progress Note ---
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 She remembers her admission, plans for harm of self, states that she is not interested in hurting herself anymore, wants to get better, wants help, wants to not feel bad anymore. Review of Systems General: No Chills; Fatigue HEENT: No Dysphasia, No Sore Throat Pulmonary: No Dyspnea Cardiovascular: No: Chest Pain Gastrointestinal: No: Nausea, Abdominal Pain Genitourinary: No Dysuria; Frequency Musculoskeletal: other (muscle weakness) Neurological: Weakness Objective Exam Vital Signs Vital Signs Date Time Temp Pulse Resp B/P (MAP) Pulse Ox O2 Delivery O2 Flow Rate FiO2 01/15/22 16:00 36.1 102 18 132/80 (97) 99 Room Air 01/15/22 13:00 76 01/15/22 11:42 36.6 82 20 97/68 (78) 98 Room Air 01/15/22 09:59 36.6 83 18 96/64 (75) 96 Room Air 01/15/22 08:42 92 107/66 (80) 01/15/22 08:00 99 Room Air 01/15/22 07:24 36.4 86 18 110/61 (77) 99 Room Air 01/15/22 07:00 90 01/15/22 04:58 36.4 55 18 120/70 (87) 97 Room Air 01/15/22 01:00 79 01/15/22 00:04 36.2 82 18 121/77 (92) 97 Room Air 01/14/22 20:00 Room Air 01/14/22 19:33 36.5 86 18 92/55 (67) 98 Room Air 01/14/22 19:00 92 I & O 01/15/22 07:00 Intake Total 1140 ml Output Total 975 ml Balance 165 ml General Appearance: No Apparent Distress, Anxious Eyes: Bilateral Eye PERRL, Bilateral Eye EOMI HEENT: PERRL/EOMI Neck: Non Tender, Supple; No Lymphadenopathy (L), No Lymphadenopathy (R), No Thyromegaly Respiratory: Chest Non Tender, Lungs Clear, Normal Breath Sounds, No Accessory Muscle Use, No Respiratory Distress Cardiovascular: Other (Sinus rhythm with frequent premature beats on auscultation. 2+ radial pulses) Gastrointestinal: Normal Bowel Sounds, Non Tender, Soft Back: Normal Inspection, No CVA Tenderness Extremity: Normal Capillary Refill, Non Tender, No Calf Tenderness, No Pedal Edema Neurologic/Psychiatric: Alert, Oriented x3, No Motor/Sensory Deficits Skin: Normal Color, Warm/Dry Lymphatic: No Adenopathy Results Lab Microbiology 01/13/22 Urine Culture - Preliminary, Resulted Enterococcus faecalis Assessment/Plan Assessment/Plan Admission Dx Suicidal ideation with plan Chronic bipolar depression Anxiety Anorexia Hypothyroidism Self neglect Palpitations Tremors Assessment and Plan Suicidal ideation with plan Chronic bipolar depression Anxiety Anorexia Hypothyroidism Self neglect Palpitations Tremors PVC's 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 Consult to cardiology due to frequent PVC's for recommendations. - calcium channel tomasa started - monitor bp, heart rate. Checked TSH, Free T4, Total T3, TPO - - increase levothyroxine while in hospital - will add cytomel at 5mg daily when outpatient. Check vitamin B12, folate, iron panel, and lytes - due to self neglect with anorexia and appearance of dehydration. Discussed with patient and her family - she will need to be sent to assisted living or a fci for strengthening, management, and plans for outpatient physical therapy. [facility] to eval pt today to possibly admit on Thursday. Will need pt/ot/nursing eval from [facility]. Admission Dx Suicidal ideation with plan Chronic bipolar depression Anxiety Anorexia Hypothyroidism Self neglect Palpitations Tremors Clinical Quality Measures Admission Status Admission Dx Suicidal ideation with plan Chronic bipolar depression Anxiety Anorexia Hypothyroidism Self neglect Palpitations Tremors LUCHO OLSEN MD Jan 15, 2022 18:37
[2022-01-15] MEDS ORDERED: DILT30TA PO (19:50)
[2022-01-15] MEDS ORDERED: CEFD300C3 PO (19:50)
[2022-01-15] MEDS ORDERED: LACT1CAP87 PO (19:50)
[2022-01-15] MEDS ORDERED: LIOTHYSO5 PO (19:50)
--- NOTE | 2022-01-15 19:53 | D/C HH Face to Face Order ---
D/C Face to Face Orders Reconcile Patient Problems Problems Reviewed?: Yes [facility] Patient Instructions/FollowUp: 1 wk [facility] needs to be established with psychiatric services Physician to follow Patient: micky Discharge Diet for Home: Regular Diet Patient Problems: Suicidal ideation with plan Chronic bipolar depression Anxiety Anorexia Hypothyroidism Self neglect Palpitations Tremors PVC's Goals for Patient: strengthening - will need to discuss with family as to plans upon improvement of patient Patient Data-Allergies,Ht & Wt Patient Allergies: Coded Allergies: No Known Drug Allergies (Unverified , 02/19/17) Height (Feet): 5 Height (Inches): 2.00 Weight (Pounds): 150 Weight (Ounces): 0.0 Home Health Need/Face to Face Date of Face to Face: Jan 15, 2022 Clinical Findings: Generalized weakness and fatigue, Muscle weakness, Unsteady gait I have seen Pt [id number]: Yes Discharged To: Other (assisted living) Diagnosis/Conditions: Suicidal ideation with plan (resolved on dc) Chronic bipolar depression Anxiety Anorexia Hypothyroidism Self neglect Palpitations Tremors PVC's Patient is Homebound due to: Ramsey fall risk due to instabilty, Muscle weakness Homebound Status Due to the above stated illness, injury or surgical procedure (medical condition or diagnosis) and associated clinical findings, the patient is homebound because of his/her inability to leave home except with aid of a supportive device and/or person AND leaving the home requires a considerable and taxing effort or is medically contraindicated. Pt req the following assistanc: [facility] Nursing Orders Home Health Services Order: Nursing Services, Catalyst Operator-Evaluate & Treat, Physical Therapy-Evaluate & Treat eval and treat for strenghening, gait and balance training/strengthening Home Health Infusion Therapy Line Start Date: Jan 14, 2022 Therapy Orders Therapy Orders: Physical Therapy Therapy Specific Orders: Eval assistive deivces, Teach enviro modifications/safety, Increase strength/endurance, Provider maintenance therapy Certify Stmt I certify that this patient is under my care and that I, a nurse practitioner or a physician; a emergency room physician assistant working with me, had a face to face encounter that - meets the physician face to face encounter requirements with this patient as dated. LUCHO OLSEN MD Jan 15, 2022 19:53
[2022-01-15] MEDS: MELATONIN 3 MG TABLET PO SCH (20:13)
[2022-01-16] VITALS (7 sets, daily range): BP systolic 101–130; BP diastolic 59–81
[2022-01-16] MEDS: NS IV 1000 ML 1,000 ML IV SCH (04:06)
[2022-01-16] MEDS: LEVOTHYROXINE 75 MCG (LEVOTHROID) TABLET PO SCH (05:35)
[2022-01-16] MEDS: PANTOPRAZOLE 40 MG (PROTONIX) TAB PO SCH (08:52)
[2022-01-16] MEDS: VITAMIN D3 25 MCG (1,000 UNITS) TABLET PO SCH (08:52)
--- NOTE | 2022-01-16 09:11 | Physical Therapy Daily Note ---
PT Daily Note-Current Subjective Patient agrees to PT. Pain Section J - Health Conditions 1. Rarely or not at all 2. Occasionally 3. Frequently 4. Almost constantly 8. Unable to answer Pain Effect on Sleep: 1 Pain Interference with Therapy: 1 Pain Interference w/Day-to-Day: 1 Mental Status Patient Orientation: Normal For Age Transfers SCALE: Activities may be completed with or without assistive devices. 4-Vwymjtcszs-xbzanhk completes the activity by him/herself with no assistance from a helper. 5-Set-up or Clean-up Assistance-helper sets up or cleans up; patient completes activity. Hector assists only prior to or following the activity. 4-Supervision or Touching Assistance-helper provides verbal cues and/or touching/steadying and/or contact guard assistance as patient completes activity. Assistance may be provided throughout the activity or intermittently. 3-Partial/Moderate Assistance-helper does LESS THAN HALF the effort. Hector lifts, holds or supports trunk or limbs, but provides less than half the effort. 2-Substantial/Maximal Assistance-helper does MORE THAN HALF the effort. Hector lifts or holds trunk or limbs and provides more than half the effort. 4-Eyhtbcutu-fnnefs does ALL the effort. Patient does none of the effort to complete the activity. Or, the assistance of 2 or more helpers is required for the patient to complete the activity. If activity was not attempted, code reason: 7-Patient Refused. 9-Not Applicable-not attempted and the patient did not perform the activity before the current illness, exacerbation or injury. 10-Not Attempted due to Environmental Limitations-(lack of equipment, weather restraints, etc.). 88-Not Attempted due to Medical Conditions or Safety Concerns. Lying to Sitting/Side of Bed(Q: 6 Sit to Stand (QC): 4 Chair/Xjh-xq-Lfbzm Xfer(QC): 4 Toilet Transfer (QC): 4 Weight Bearing Right Lower Extremity: Right Full Weight Bearing Left Lower Extremity: Left Full Weight Bearing Gait Training Distance: 250' Walk 10 feet (QC): 4 Walk 50 ft with 2 Turns(QC): 4 Walk 150 ft (QC): 4 Gait Assistive Device: FWW very slow functional gait sequence Assessment Patient toilets independently. Up in recliner with breakfast in situ. PT Halfway Goals Halfway Goals PT Field Radio Technician Goals Time Frame: Jan 22, 2022 Roll Left & Right (QC): 6 Sit to Lying (QC): 6 Lying-Sitting on Side/Bed(QC): 6 Sit to Stand (QC): 6 Chair/Cjy-qw-Ksbnr Xfer(QC): 6 Toilet Transfer (QC): 6 Walk 10 feet (QC): 6 Walk 50ft with 2 Turns (QC): 6 Walk 150 ft (QC): 6 PT Plan Treatment/Plan Treatment Plan: Continue Plan of Care Treatment Plan: Bed Mobility, Education, Functional Activity Aníbal, Functional Strength, Gait, Safety, Therapeutic Exercise, Transfers Treatment Duration: Jan 22, 2022 Frequency: 6 times per week Estimated Hrs Per Day: .25 hour per day Patient and/or Family Agrees t: Yes Time Time In: 804 Time Out: 813 DATE: Jan 16, 2022 Total Billed Treatment Time: 9 Total Billed Treatment 1 visit FA 9 min BERTO MORRISON PT Jan 16, 2022 09:11
[2022-01-16] MEDS ORDERED: ALPRAZolam 0.25 MG (XANAX) TAB PO NR (12:00)
[2022-01-16] MEDS ORDERED: LEVOTHYROXINE 25 MCG (LEVOTHROID) TAB PO NR (12:00)
--- NOTE | 2022-01-16 14:02 | Progress Note - Cardiology ---
Cardiology SOAP Progress Note Subjective: No cp or palp or syncope or shortness of breath Gen malaise and weakness No n/v/d Objective: I&O/Vital Signs 01/16/22 01/16/22 01/16/22 01/16/22 03:16 07:00 07:47 08:43 Temp 36.5 36.3 Pulse 82 66 63 Resp 16 20 B/P (MAP) 129/74 (92) 129/60 (83) Pulse Ox 98 97 97 O2 Delivery Room Air Room Air Room Air O2 Flow Rate 0.00 01/16/22 01/16/22 11:46 13:00 Temp 36.5 Pulse 80 90 Resp 20 B/P (MAP) 130/59 (82) Pulse Ox 95 O2 Delivery Room Air 01/16/22 00:00 Intake Total 1480 ml Output Total 1550 ml Balance -70 ml Weight (Pounds): 150 Weight (Ounces): 0.0 Weight (Calculated Kilograms): 68.024529 Constitutional: AAO x 3, well-developed, other (thin) Respiratory: No accessory muscle use, No respiratory distress; chest expansion is symmetric, chest is bilaterally symmetric, lungs clear to auscultation Cardiovascular: regular rate-rhythm; No JVD; S1 and S2 Gastrointestional: No tender; soft, audible bowel sounds Extremities: no lower extremity edema bilateral Neurologic/Psychiatric: grossly intact (moves all extremities) Skin: No rash on exposed areas, No ulcerations on exposed areas Results/Procedures: Labs Microbiology 01/13/22 Urine Culture - Preliminary, Resulted Enterococcus faecalis A/P: Assessment: SSS w/o any distinct evidence of A Fib -continue low dose CCB started by Dr. Baird - Continue telemetry - Avoid Beta Blockers due to patients depression and SI. - Echocardiogram of 01-14-[address] Baird showed LVEF 65-70%. LA mod dilated. PASP 30-35 mmHg Hypertension - controlled - episodes of somewhat low BP, albeit asymptomatic Generalized fatigue/weakness/dyspnea with exertion - probably related to physical deconditioning Hypothyroidism -History of hypothyroidism treated with Levothyroxine. - TSH 01-14-22 of 9.23. - Management per medical services H/O chronic UTI Suicidal ideation with plan, anxiety, chronic bipolar depression - Mental health is being managed by medical services at this time. Will avoid Beta blockers as stated above. Plan: Continue current regimen Monitor labs from time to time KVNG PANDA MD [facility] CCDS Jan 16, 2022 14:02
[2022-01-16] MEDS ORDERED: cefTRIAXone 1 GM PRE-MIX 50 ML IV SCH (15:00)
--- NOTE | 2022-01-16 17:06 | Progress Note - Hospitalist ---
Subjective HPI/CC On Admission Date Seen by Provider: Jan 16, 2022 Time Seen by Provider: 11:30 Subjective/Events-last exam She is feeling shaky. She feels nervous. She denies pain. She denies suicidal ideation. Objective Exam Vital Signs Vital Signs Date Time Temp Pulse Resp B/P (MAP) Pulse Ox O2 Delivery O2 Flow Rate FiO2 01/16/22 16:00 37.0 78 18 103/61 (75) 98 Room Air 01/16/22 08:43 0.00 Capillary Refill : Less Than 3 Seconds General Appearance: No Apparent Distress, Anxious Respiratory: Lungs Clear, No Respiratory Distress Cardiovascular: Regular Rate, Rhythm, No Murmur Gastrointestinal: Normal Bowel Sounds, Soft Extremity: Normal Inspection, No Pedal Edema Neurologic/Psychiatric: Alert, Normal Mood/Affect Skin: Normal Color, Warm/Dry Results/Procedures Lab Patient resulted labs reviewed. Assessment/Plan Assessment and Plan Assess & Plan/Chief Complaint Suicidal ideation with plan Chronic bipolar depression Anxiety Continue home meds Add Xanax for anxiety SW following Anorexia Self neglect Add Ensure Hypothyroidism Increase Levothyroxine Palpitations Tremors PVC's Cardiology following Cardizem Asymptomatic bacteriuria UA without significant pyruria, <5 Urine culture with <[id number] cfu Enterococcus Stop Rocephin Antibiotics not indicated Diagnosis/Problems Diagnosis/Problems (1) Suicidal ideation Status: Acute (2) Bipolar disorder Status: Acute (3) Depression Status: Acute (4) Hypothyroidism Status: Acute Qualifiers: 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
[2022-01-16] MEDS ORDERED: ALPRAZolam 0.25 MG (XANAX) TAB PO PRN (18:15)
[2022-01-16] MEDS ORDERED: ALPRAZolam 0.5 MG (XANAX) TAB ONE (20:17)
[2022-01-16] MEDS: MELATONIN 3 MG TABLET PO SCH (20:19)
[2022-01-16] MEDS ORDERED: ALPRAZolam 0.5 MG (XANAX) TAB PO SCH (21:00)
[2022-01-17] MEDS: NS IV 1000 ML 1,000 ML IV SCH (03:03)
[2022-01-17 03:33] VITALS: BP 128/73
[2022-01-17] MEDS ORDERED: LEVOTHYROXINE 75 MCG (LEVOTHROID) TABLET PO SCH (06:30)
[2022-01-17] MEDS ORDERED: LEVOTHYROXINE 100 MCG (LEVOTHROID) TAB PO SCH (06:30)
[2022-01-17 07:20] VITALS: BP 128/73
[2022-01-17 08:00] VITALS: BP 129/76
[2022-01-17] MEDS: PANTOPRAZOLE 40 MG (PROTONIX) TAB PO SCH (08:26)
[2022-01-17] MEDS: VITAMIN D3 25 MCG (1,000 UNITS) TABLET PO SCH (08:26)
[2022-01-17] MEDS ORDERED: ALPRAZolam 0.25 MG (XANAX) TAB PO SCH (09:00)
--- NOTE | 2022-01-17 11:02 | Physical Therapy Daily Note ---
PT Daily Note-Current Subjective Patient sitting in chair upon PT arrival, agreeable to treatment. Patient rates pain at 0/10 currently. Pain Section J - Health Conditions 1. Rarely or not at all 2. Occasionally 3. Frequently 4. Almost constantly 8. Unable to answer Pain Effect on Sleep: 1 Pain Interference with Therapy: 1 Pain Interference w/Day-to-Day: 1 Transfers SCALE: Activities may be completed with or without assistive devices. 6-Stvdluarhf-qzzhevb completes the activity by him/herself with no assistance from a helper. 5-Set-up or Clean-up Assistance-helper sets up or cleans up; patient completes a ctivity. Vassar assists only prior to or following the activity. 4-Supervision or Touching Assistance-helper provides verbal cues and/or touching/steadying and/or contact guard assistance as patient completes activity. Assistance may be provided throughout the activity or intermittently. 3-Partial/Moderate Assistance-helper does LESS THAN HALF the effort. Vassar lifts, holds or supports trunk or limbs, but provides less than half the effort. 2-Substantial/Maximal Assistance-helper does MORE THAN HALF the effort. Vassar lifts or holds trunk or limbs and provides more than half the effort. 1-Lrbimgcqm-gsftoj does ALL the effort. Patient does none of the effort to complete the activity. Or, the assistance of 2 or more helpers is required for the patient to complete the activity. If activity was not attempted, code reason: 7-Patient Refused. 9-Not Applicable-not attempted and the patient did not perform the activity before the current illness, exacerbation or injury. 10-Not Attempted due to Environmental Limitations-(lack of equipment, weather restraints, etc.). 88-Not Attempted due to Medical Conditions or Safety Concerns. Sit to Stand (QC): 6 Chair/Fhk-hp-Etfrb Xfer(QC): 6 Weight Bearing Right Lower Extremity: Right Full Weight Bearing Left Lower Extremity: Left Full Weight Bearing Gait Training Does the Patient Walk?: Yes Distance: 450 feet Walk 10 feet (QC): 6 Walk 50 ft with 2 Turns(QC): 6 Walk 150 ft (QC): 4 Gait Persons Needed: 1 Gait Assistive Device: FWW Assessment Current Status: Good Progress Patient tolerated treatment well. Demonstrates good increase in gait distance. Patient ambulates 450 feet with FWW, with SBA and verbal cues for safety, progression, posture. Patient ambulates with improved gait pattern, posture and endurance, however does tend to round shoulders at times. Patient in chair post treatment with all needs met, nursing notified, call light in reach. PT Drainage Design Coordinator Goals Nursing Home Goals PT Nursing Home Goals Time Frame: Jan 22, 2022 Roll Left & Right (QC): 6 Sit to Lying (QC): 6 Lying-Sitting on Side/Bed(QC): 6 Sit to Stand (QC): 6 Chair/Zhh-zy-Xlzmh Xfer(QC): 6 Toilet Transfer (QC): 6 Walk 10 feet (QC): 6 Walk 50ft with 2 Turns (QC): 6 Walk 150 ft (QC): 6 PT Plan Treatment/Plan Treatment Plan: Continue Plan of Care Treatment Plan: Bed Mobility, Education, Functional Activity Aníbal, Functional Strength, Gait, Safety, Therapeutic Exercise, Transfers Treatment Duration: Jan 22, 2022 Frequency: 6 times per week Estimated Hrs Per Day: .25 hour per day Patient and/or Family Agrees t: Yes Safety Risks/Education Patient Education: Gait Training, Transfer Techniques Teaching Recipient: Patient Teaching Methods: Demonstration, Discussion Response to Teaching: Verbalize Understanding, Return Demonstration Time Time In: 1045 Time Out: 1055 DATE: Jan 17, 2022 Total Billed Treatment Time: 10 Total Billed Treatment Visit, Gait JANICE PELAYO PT Jan 17, 2022 11:02
[2022-01-17] MEDS ORDERED: ALPR.25T PO (11:47)
[2022-01-17 12:00] VITALS: BP 110/75
[2022-01-17 13:08] VITALS: BP 110/75
--- NOTE | 2022-01-17 16:22 | Discharge Summary ---
Discharge Summary Hospital Course Problems/Dx: (1) Suicidal ideation Status: Acute (2) Bipolar disorder Status: Acute (3) Depression Status: Acute (4) Hypothyroidism Status: Acute Qualifiers: Qualified Codes: E03.8 - Other specified hypothyroidism; E06.3 - Autoimmune thyroiditis (5) Anxiety Status: Acute Hospital Course Date of Admission: Jan 13, 2022 at 20:34 Admission Diagnosis : Suicidal ideation Family Physician/Provider: Lucho Puentes MD Date of Discharge: 01/17/22 Discharge Diagnosis: Suicidal ideation, bipolar depression, anxiety, hypothyroidism Hospital Course: Maryse Barrera is a 76 year old female who presented with suicidal ideation. She has a history of bipolar disorder. She was continued on her antidepressant medications. She also had issues with anxiety and was started on Xanax. She was also found to be hypothyroid. She was continued on Synthroid and started on Liothyronine. Her UA and culture were consistent with asymptomatic bacteriuria and antibiotics were deferred. She was discharged home in improved conditon. Labs and Pending Lab Test: Microbiology 01/13/22 Urine Culture - Final, Complete Enterococcus faecalis Home Meds Active Xanax Tablet (Alprazolam) 0.25 Mg Tab 0.25 Mg PO BID 30 Days Acidophilus Lactobacilli (Lactobacillus Acidophilus) 500 Million Cell Capsule 1 Each PO BID Cefdinir 300 Mg Capsule 300 Mg PO BID Cytomel (Liothyronine Sodium) 5 Mcg Tablet 5 Mcg PO DAILY Diltiazem HCl 30 Mg Tablet 30 Mg PO Q6HR hold if sbp less than 110 or heart rate less than 50 Reported Vitamin D3 (Cholecalciferol (Vitamin D3)) 50 Mcg (2000 Unit) Capsule 50 Mcg PO DAILY Melatonin 5 Mg Tablet 5 Mg PO HS Pantoprazole Sodium 40 Mg Tablet.dr 40 Mg PO DAILY Mirtazapine 15 Mg Tablet 7.5 Mg PO HS TAKES OF A 15MG Levothyroxine Sodium 75 Mcg Tablet 75 Mcg PO DAILY Escitalopram Oxalate 20 Mg Tablet 20 Mg PO DAILY Assessment/Pt Instructions See instructions Discharge Planning: >30 minutes discharge planning Discharge Instructions Discharge Diet: No Restrictions Activity as Tolerated: Yes Discharge Physical Examination Vital Signs Vital Signs Date Time Temp Pulse Resp B/P (MAP) Pulse Ox O2 Delivery O2 Flow Rate FiO2 01/17/22 13:08 36.7 82 21 110/75 97 Room Air 0.00 General Appearance: No Apparent Distress, WD/WN Respiratory: Lungs Clear, No Respiratory Distress Cardiovascular: Regular Rate, Rhythm, No Murmur Gastrointestinal: Normal Bowel Sounds, Soft Extremity: Normal Inspection, Pedal Edema Skin: Normal Color, Warm/Dry Neurologic/Psychiatric: Alert, Normal Mood/Affect Allergies: Coded Allergies: No Known Drug Allergies (Unverified , 02/19/17) Copy Copies To 1: LUCHO PUENTES MD Discharge Summary Date of Admission Jan 13, 2022 at 20:34 Date of Discharge Jan 17, 2022 at 13:30 Discharge Date: Jan 17, 2022 Discharge Time: 13:30 Admission Diagnosis Suicidal ideation Discharge Diagnosis Suicidal ideation with plan Chronic bipolar depression Anxiety Anorexia Self neglect Hypothyroidism Palpitations Tremors PVC's Asymptomatic bacteriuria (1) Suicidal ideation Status: Acute (2) Bipolar disorder Status: Acute (3) Depression Status: Acute (4) Hypothyroidism Status: Acute Qualifiers: Qualified Codes: E03.8 - Other specified hypothyroidism; E06.3 - Autoimmune thyroiditis (5) Anxiety Status: Acute (6) Bacteriuria Status: Acute JOÃO ROBERTSON MD Jan 17, 2022 16:19
== END 2022-01-17 13:30 ==
LOC: EDUNIT# 16:41 → ER 16:43 → 4TH 20:34
PROVIDERS: ADMIT Family Medicine; ATTEND Internal Medicine
DX: F31.9 Bipolar disorder, unspecified (principal); E03.9 Hypothyroidism, unspecified; F41.9 Anxiety disorder, unspecified; R82.71 Bacteriuria; I10 Essential (primary) hypertension; I49.1 Atrial premature depolarization; R63.0 Anorexia; I49.5 Sick sinus syndrome; Z79.890 Hormone replacement therapy; Z79.899 Other long term (current) drug therapy; Z87.440 Personal history of urinary (tract) infections; Z68.25 Body mass index [BMI] 25.0-25.9, adult
CPT/HCPCS: 80053; 80306; 81000; 82746; 83735; 84439; 84443; 84480; 85025; 86376; 87077; 87088; 87186; 87636; 93005; 97116; 97162; 97530; 99284; C8929; G0480 ×3; 36415; 80320; 80329; 93306; 96366; G0378

== ENCOUNTER → 2022-01-31 | Outpatient (CLI) | payer MEDICARE ==
[~2022-01-31] MED LIST changes: +CHOL200074 PO; +DILT30TA PO; +ESCI20TA39 PO; +LACT1CAP87 PO; +LIOTHYSO5 PO; +MELA5TAB14 PO; +MIRT-68 PO; +PANT40TA52 PO
== END ==
LOC: CARD 12:23
PROVIDERS: ATTEND Family Medicine
DX: R00.2 Palpitations (principal)
CPT/HCPCS: 93246

== ENCOUNTER → 2022-10-31 | Outpatient (CLI) | payer MEDICARE | LOC: CARD 13:17 | PROVIDERS: ATTEND Internal Medicine Cardiovascular Disease | DX: I11.9 Hypertensive heart disease without heart failure (principal); I34.0 Nonrheumatic mitral (valve) insufficiency; I25.10 Atherosclerotic heart disease of native coronary artery without angina pectoris | CPT/HCPCS: 93306 ==

== ENCOUNTER 2022-12-20 08:10 | Emergency (ER) | payer MEDICARE ==
[~2022-12-20] VITALS: Ht 157 cm; Wt 66.0 kg
--- NOTE | 2022-12-20 08:28 | ED Fall/Injury ---
General Chief Complaint: Trauma-Non Activation Stated Complaint: FALL Nursing Triage Note: PT ARRIVED PER EMS, PT CO OF FALL BACKWARDS THIS AM. PT DENIES LOC. STATES HIT BACK OF HEAD AND CO OF SL NECK PAIN, C-COLLAR IN PLACE Source: patient Exam Limitations: no limitations History of Present Illness Date Seen by Provider: Dec 20, 2022 Time Seen by Provider: 08:14 Initial Comments 77-year-old female presents from the nursing facility via EMS after she fell and hit her head this morning. She states her legs were wobbly which is fairly typical for her and that is what caused her to fall. She denies any chest pain, shortness of breath prior to the events. She has some mild neck pain at present but denies any other new pain. She does state that she has "pain all over." This is common for her. All other systems reviewed and negative except documented per HPI. Voice recognition software was used to help create this chart Location Injury Occurred: HOME Allergies and Home Medications Allergies Coded Allergies: No Known Drug Allergies (Unverified , 02/19/17) Patient Home Medication List Home Medication List Reviewed: Yes ALPRAZolam (Xanax Tablet) 0.25 Mg Tab, 0.25 MG PO BID Prescribed by: JOÃO ROBERTSON on 01/17/22 1147 Cefdinir (Cefdinir) 300 Mg Capsule, 300 MG PO BID Prescribed by: LUCHO OLSEN on 01/15/221949 Cholecalciferol (Vitamin D3) (Vitamin D3) 50 Mcg (2000 Unit) Capsule, 50 MCG PO DAILY, (Reported) Entered as Reported by: RAMON RIVAS on 01/14/22 150 Diltiazem HCl (Diltiazem HCl) 30 Mg Tablet, 30 MG PO Q6HR Prescribed by: LUCHO OLSEN on 01/15/221949 Escitalopram Oxalate (Escitalopram Oxalate) 20 Mg Tablet, 20 MG PO DAILY, (Reported) Entered as Reported by: RAMON RIVAS on 01/14/22 150 Lactobacillus Acidophilus (Acidophilus Lactobacilli) 500 Million Cell Capsule, 1 EACH PO BID Prescribed by: LUCHO OLSEN on 01/15/221949 Levothyroxine Sodium (Levothyroxine Sodium) 75 Mcg Tablet, 75 MCG PO DAILY, (Reported) Entered as Reported by: RAMON RIVAS on 01/14/22 1503 Liothyronine Sodium (Cytomel) 5 Mcg Tablet, 5 MCG PO DAILY Prescribed by: LUCHO OLSEN on 01/15/221949 Melatonin (Melatonin) 5 Mg Tablet, 5 MG PO HS, (Reported) Entered as Reported by: RAMON RIVAS on 01/14/22 1503 Mirtazapine (Mirtazapine) 15 Mg Tablet, 7.5 MG PO HS, (Reported) Entered as Reported by: RAMON RIVAS on 01/14/22 1503 Pantoprazole Sodium (Pantoprazole Sodium) 40 Mg Tablet.dr, 40 MG PO DAILY, (Reported) Entered as Reported by: RAMON RIVAS on 01/14/22 1503 Review of Systems Review of Systems Constitutional: see HPI Past Gzwefbm-Qwoiki-Unzxip Hx Patient Social History Tobacco Use?: No Substance use?: No Alcohol Use?: No Pt feels they are or have been: No Immunizations Up To Date Tetanus Booster (TDap): Less than 5yrs PED Vaccines UTD: No First/Initial COVID19 Vaccinat: 07/2020 Second COVID19 Vaccination Arnie: NONE Third COVID19 Vaccination Date: NONE Seasonal Allergies Seasonal Allergies: Yes Past Medical History Surgery/Hospitalization HX: 04/2021 [facility] FOR PSYCH ISSUES, GALLBLADDER, LT FOOT Surgeries: Yes (D&C, LT FOOT HAMMERT[facility]) Gallbladder, Orthopedic Respiratory: No Currently Using CPAP: No Currently Using BIPAP: No Cardiac: Yes High Cholesterol, Hypertension Neurological: No Reproductive Disorders: No Female Reproductive Disorders: Denies Sexually Transmitted Disease: No HIV/AIDS: No Genitourinary: Yes Kidney Infection, UTI-Chronic Gastrointestinal: Yes Gastroesophageal Reflux, Hiatal Hernia, Irritable Bowel Musculoskeletal: Yes Arthritis Endocrine: Yes Hypothyroidsim HEENT: No Loss of Vision: Bilateral Hearing Impairment: Denies Cancer: No Psychosocial: Yes Anxiety, Bipolar, Depression Integumentary: No Blood Disorders: No Adverse Reaction/Blood Tranf: No (N/A) Family Medical History Arthritis Cardiovascular disease Cataracts Colon cancer Diabetes mellitus Hypertension Myocardial infarction Parkinson's disease Psychosocial problem Respiratory disorder Thyroid disease Visual disorder Heart Disease, Cancer, CAD Under 55 Years Old, Diabetes, Stroke, Other Conditions/Hx Physical Exam Vital Signs Vital Signs - First Documented 12/20/22 08:10 Pulse 102 Resp 16 B/P (MAP) 143/78 (99) Pulse Ox 98 Capillary Refill : Less Than 3 Seconds Height, Weight, BMI Height: 5'2.00" Weight: 150lbs. 0.0oz. [id number]; 26.00 BMI Method:Stated General Appearance: WD/WN, no apparent distress HEENT: pharynx normal Neck: supple Cardiovascular: regular rate, rhythm, no murmur, other (Mild midline tenderness near C3-4 region. Cervical collar is in place from prehospital staff.) Respiratory: chest non-tender, lungs clear, normal breath sounds, no respiratory distress, no accessory muscle use Gastrointestinal: normal bowel sounds, non tender, soft, no organomegaly Back: normal inspection, no CVA tenderness, no vertebral tenderness Extremities: normal range of motion, non-tender, normal inspection, no calf tenderness, normal capillary refill Neurologic/Psychiatric: alert, normal mood/affect, oriented x 3 Progress/Results/Core Measures Results/Orders My Orders Orders - MIAH GARAY DO Ct Head/Cervical Spine Wo (12/20/22 08:23) Vital Signs/I&O 12/20/22 08:10 Pulse 102 Resp 16 B/P (MAP) 143/78 (99) Pulse Ox 98 Blood Pressure Mean: 99 Departure Communication (Admissions) Patient is hemodynamically stable, neurologically intact. CT scan of her head and cervical spine are negative for any acute findings. I have independently reviewed the images and agree with radiology findings. Cervical collar removed at 914. She will be discharged back to the nursing facility in stable condition with supportive care Impression Primary Impression: Fall Qualified Codes: W19.XXXA - Unspecified fall, initial encounter Additional Impressions: Closed head injury Qualified Codes: S09.90XA - Unspecified injury of head, initial encounter Neck pain Disposition: HOME, SELF-CARE Condition: Stable Departure-Patient Inst. Referrals: LUCHO OLSEN MD (PCP/Family) Primary Care Physician Patient Instructions: Preventing Falls ED Add. Discharge Instructions: The CT scan of your head and neck are negative. Use ibuprofen and Tylenol as needed for any mild pains. Return to the emergency department for any severe concerns All discharge instructions reviewed with patient and/or family. Voiced understanding. MIAH GARAY DO Dec 20, 2022 08:28
--- NOTE | 2022-12-20 09:12 | Diagnostic Imaging Report ---
PROCEDURE: CT head and CT cervical spine without contrast. TECHNIQUE: Multiple contiguous axial images were obtained through the brain and cervical spine without the use of intravenous contrast. Sagittal and coronal reformations through the cervical spine were then performed. Auto Exposure Controls were utilized during the CT exam to meet ALARA standards for radiation dose reduction. INDICATION: Head injury. Neck pain. Choking sensation. Fall. COMPARISON: CT head without contrast 08/15/2019. FINDINGS: CT HEAD: [id number] generalized volume loss. No intracranial hemorrhage, mass effect, hydrocephalus or extra-axial fluid collections. No CT evidence of a territorial infarction. Osseous structures are intact. Paranasal sinuses and mastoids are clear. CT cervical spine: Grade 1 retrolisthesis of C3 on C4, C4 on C5 and C5 on C6. Lfejafjs-[id number]-[id number] spondylotic changes. Vertebral body heights are preserved. No fractures. No CT evidence of high-grade spinal canal stenosis. No acute findings in the visualized paravertebral soft tissues. The lung apices are clear. IMPRESSION: No acute intracranial or cervical spine CT findings. Dictated by: Dictated on workstation # [id number]
[2022-12-20 09:23] VITALS: BP 134/66
== END 2022-12-20 09:23 | disposition home or self-care (01) ==
LOC: EDUNIT# 08:10 → ER 08:11
DX: S09.90XA Unspecified injury of head, initial encounter (principal); M54.2 Cervicalgia; W18.30XA Fall on same level, unspecified, initial encounter; W22.8XXA Striking against or struck by other objects, initial encounter
CPT/HCPCS: 70450; 72125